=== PATIENT | female | born 1985 | race Two or more races ===

== ENCOUNTER → 2020-09-19 08:52 | Outpatient (BNVA) | payer OTHER, SELFPAY | PROVIDERS: PCP Internal Medicine; Visit Provider Physician Assistant | DX: Z76.89 Persons encountering health services in other specified circumstances (principal) ==

== ENCOUNTER 2020-09-20 14:24 | Outpatient (REF) | payer OTHER, SELFPAY ==
[2020-09-20 17:03] LABS: MANUAL DIFF FLAG NO
[2020-09-20 17:21] LABS: Basophils Percent Auto 0.5 % (0-2); Eosinophils Absolute Auto 0.3 X10*3/uL (0.0-0.4); Eosinophils Percent Auto 5.1 % (0-4); Hematocrit 30.8 % (37-47); Hemoglobin 9.3 g/dl (12.0-16.0); Imm Gran Abs Auto 0.02 X10*3/uL (0.00-0.03); Imm Gran Pct Auto 0.4 % (0.0-0.4); Lymphocytes Absolute Auto 1.9 X10*3/uL (1.2-4.9); Lymphocytes Percent Auto 35.1 % (20-40); Mean Corpuscular HGB Conc 30.2 g/dl (31.0-35.0); Mean Corpuscular Hemoglobin 23.6 pg (27.0-33.0); Mean Corpuscular Volume 78.2 fL (80-98); Mean Platelet Volume 12.1 fL (9.4-12.3); Monocytes Absolute Auto 0.4 X10*3/uL (0.1-1.2); Monocytes Percent Auto 6.7 % (2-11); Neutrophils Absolute Auto 2.9 X10*3/uL (2.0-8.3); Neutrophils Percent Auto 52.2 % (45-73); Platelet Count 386 X10*3/uL (160-400); Red Blood Count 3.94 X10*6/uL (4.20-5.50); Red Cell Distribution Width 14.6 % (11.0-16.0); White Blood Count 5.5 X10*3/uL (4.8-10.8)
[2020-09-20 17:30] LABS: Alanine Aminotransferase 18 U/L (0-31); Albumin Level 4.2 g/dL (3.5-5.0); Alkaline Phosphatase 102 U/L (39-117); Anion Gap 11 (12-20); Aspartate Amino Transferase 24 U/L (5-31); Bilirubin Total 0.3 mg/dL (0.0-1.0); Blood Urea Nitrogen 7 mg/dL (9-16); Calcium 8.8 mg/dL (8.4-10.2); Carbon Dioxide 26 mmol/L (22-29); Chloride 106 mmol/L (96-108); Estimated Glomerular Filt Rate > 60; Glucose Random 118 mg/dL (60-115); Sodium 139 mmol/L (135-145); Total Protein 7.5 g/dL (6.5-8.0)
[2020-09-20 17:50] LABS: Thyroid Stimulating Hormone 0.96 mIU/mL (0.32-4.0)
== END 2020-09-20 14:25 | disposition home or self-care (01) ==
LOC: HO.HMGCLDS 14:24
PROVIDERS: PCP Internal Medicine; Visit Provider Physician Assistant
DX: K59.09 Other constipation (principal); R10.9 Unspecified abdominal pain; R10.11 Right upper quadrant pain
CPT/HCPCS: 36415; 80053; 84443; 85025

== ENCOUNTER 2020-09-21 15:12 | Outpatient (REF) | payer OTHER, SELFPAY | END 2020-09-21 15:13 | disposition home or self-care (01) | LOC: HO.HMGCLNP 15:12 | PROVIDERS: Visit Provider Physician Assistant | DX: K21.9 Gastro-esophageal reflux disease without esophagitis (principal) | CPT/HCPCS: 87338 ==

== ENCOUNTER 2020-09-28 08:37 | Outpatient (REF) | payer OTHER, SELFPAY ==
--- NOTE | 2020-09-28 08:43 | US_ITS ---
EXAMINATION: US ABDOMEN COMPLETE CLINICAL INFORMATION: Unspecified abdominal pain. COMPARISON: CT abdomen and pelvis 03/19/2020. Ultrasound abdomen 02/07/2020. Renal ultrasound 01/28/2020. TECHNIQUE: Real-time imaging of the abdominal viscera. FINDINGS: PANCREAS: Normal. ABDOMINAL AORTA: The proximal, mid, and distal segments are normal in caliber. INFERIOR VENA CAVA: Visualized portions are normal. LIVER: The liver is normal in size. The liver contour is normal. There is increased liver echogenicity seen. No focal hepatic lesion. There is no intrahepatic biliary duct dilatation seen. GALLBLADDER: Surgically absent. COMMON BILE DUCT: Normal in caliber measuring 0.5 cm in diameter. RIGHT KIDNEY: Normal. No hydronephrosis. No renal calculi or focal parenchymal lesions. The kidney measures 11.0 cm in maximum dimension. LEFT KIDNEY: Normal. No hydronephrosis. No renal calculi or focal parenchymal lesions. The kidney measures 11.7 cm in maximum dimension. SPLEEN: The spleen measures 7.3 cm in maximum dimension. FREE FLUID: None. US/US abdomen complete IMPRESSION: 1. Hepatic steatosis without focal lesion. No focal lesion seen. 2. The rest of the abdominal ultrasound is unremarkable.
== END 2020-09-28 08:38 | disposition home or self-care (01) ==
LOC: HO.US 08:37
PROVIDERS: Visit Provider Physician Assistant
DX: R10.9 Unspecified abdominal pain (principal)
CPT/HCPCS: 76700

== ENCOUNTER → 2020-10-09 11:46 | Outpatient (BNVA) | payer OTHER, SELFPAY | PROVIDERS: Visit Provider Physician Assistant | DX: Z76.89 Persons encountering health services in other specified circumstances (principal) ==

== ENCOUNTER → 2020-11-01 08:56 | Outpatient (BNVA) | payer OTHER, SELFPAY | PROVIDERS: PCP Internal Medicine; Visit Provider Physician Assistant | DX: Z76.89 Persons encountering health services in other specified circumstances (principal) ==

== ENCOUNTER 2020-11-07 14:51 | Outpatient (REF) | payer OTHER, SELFPAY ==
[2020-11-07 16:34] LABS: MANUAL DIFF FLAG NO
[2020-11-07 16:39] LABS: Basophils Percent Auto 0.2 % (0-2); Eosinophils Absolute Auto 0.2 X10*3/uL (0.0-0.4); Hematocrit 31.5 % (37-47); Hemoglobin 9.5 g/dl (12.0-16.0); Imm Gran Abs Auto 0.02 X10*3/uL (0.00-0.03); Imm Gran Pct Auto 0.2 % (0.0-0.4); Lymphocytes Absolute Auto 2.2 X10*3/uL (1.2-4.9); Lymphocytes Percent Auto 26.7 % (20-40); Mean Corpuscular HGB Conc 30.2 g/dl (31.0-35.0); Mean Corpuscular Hemoglobin 23.1 pg (27.0-33.0); Mean Corpuscular Volume 76.6 fL (80-98); Mean Platelet Volume 11.2 fL (9.4-12.3); Monocytes Absolute Auto 0.4 X10*3/uL (0.1-1.2); Monocytes Percent Auto 4.4 % (2-11); Neutrophils Absolute Auto 5.3 X10*3/uL (2.0-8.3); Neutrophils Percent Auto 65.5 % (45-73); Platelet Count 459 X10*3/uL (160-400); Red Blood Count 4.11 X10*6/uL (4.20-5.50); Red Cell Distribution Width 15.3 % (11.0-16.0); White Blood Count 8.1 X10*3/uL (4.8-10.8)
[2020-11-07 17:48] LABS: Ferritin 9 ng/mL (10-122)
[2020-11-07 17:54] LABS: Vitamin B12 504 pg/mL (200-900)
[2020-11-09 16:22] LABS: Transglutaminase IgA 1 U/mL
[2020-11-12 00:27] LABS: Endomysial IgA Antibody Negative (Negative)
== END 2020-11-07 14:52 | disposition home or self-care (01) ==
LOC: HO.HMGCLDS 14:51
PROVIDERS: PCP Internal Medicine; Visit Provider Physician Assistant
DX: D64.9 Anemia, unspecified (principal); R19.7 Diarrhea, unspecified
CPT/HCPCS: 36415; 82607; 82728; 82746; 83516; 85025; 86255; 86256

== ENCOUNTER 2020-11-09 14:44 | Outpatient (REF) | payer OTHER, SELFPAY | END 2020-11-09 14:45 | disposition home or self-care (01) | LOC: HO.HMGCLNP 14:44 | PROVIDERS: Visit Provider Physician Assistant | DX: A04.8 Other specified bacterial intestinal infections (principal) | CPT/HCPCS: 87338 ==

== ENCOUNTER → 2020-12-04 10:11 | Outpatient (BNVA) | payer OTHER, SELFPAY | PROVIDERS: PCP Internal Medicine; Referring Provider Internal Medicine; Visit Provider Physician Assistant | DX: Z76.89 Persons encountering health services in other specified circumstances (principal) ==

== ENCOUNTER 2020-12-22 14:36 | Outpatient (REF) | payer OTHER, SELFPAY ==
[2020-12-22 16:47] LABS: MANUAL DIFF FLAG NO
[2020-12-22 16:51] LABS: Basophils Percent Auto 0.6 % (0-2); Eosinophils Absolute Auto 0.4 X10*3/uL (0.0-0.4); Eosinophils Percent Auto 6.4 % (0-4); Hematocrit 33.8 % (37-47); Hemoglobin 10.6 g/dl (12.0-16.0); Imm Gran Abs Auto 0.01 X10*3/uL (0.00-0.03); Imm Gran Pct Auto 0.1 % (0.0-0.4); Lymphocytes Absolute Auto 1.8 X10*3/uL (1.2-4.9); Lymphocytes Percent Auto 27.1 % (20-40); Mean Corpuscular HGB Conc 31.4 g/dl (31.0-35.0); Mean Corpuscular Hemoglobin 25.2 pg (27.0-33.0); Mean Corpuscular Volume 80.3 fL (80-98); Mean Platelet Volume 11.7 fL (9.4-12.3); Monocytes Absolute Auto 0.4 X10*3/uL (0.1-1.2); Monocytes Percent Auto 5.7 % (2-11); Neutrophils Percent Auto 60.1 % (45-73); Platelet Count 360 X10*3/uL (160-400); Red Blood Count 4.21 X10*6/uL (4.20-5.50); Red Cell Distribution Width 17.2 % (11.0-16.0); White Blood Count 6.7 X10*3/uL (4.8-10.8)
[2020-12-22 17:28] LABS: Ferritin 9 ng/mL (10-122)
== END 2020-12-22 14:37 | disposition home or self-care (01) ==
LOC: HO.HMGCLDS 14:36
PROVIDERS: PCP Internal Medicine; Visit Provider Physician Assistant
DX: D64.9 Anemia, unspecified (principal)
CPT/HCPCS: 36415; 82728; 85025

== ENCOUNTER → 2021-01-23 10:30 | Outpatient (BNVA) | payer OTHER, SELFPAY | PROVIDERS: PCP Internal Medicine; Visit Provider Physician Assistant ==

== ENCOUNTER 2021-06-28 11:00 | Outpatient (REF) | payer OTHER, SELFPAY ==
[2021-06-28 13:53] LABS: MANUAL DIFF FLAG NO
[2021-06-28 13:58] LABS: Eosinophils Percent Auto 7.7 % (0-4); Hematocrit 39.1 % (37-47); Hemoglobin 12.5 g/dl (12.0-16.0); Imm Gran Pct Auto 0.2 % (0.0-0.4); Lymphocytes Percent Auto 30.3 % (20-40); Mean Corpuscular Hemoglobin 26.3 pg (27.0-33.0); Mean Corpuscular Volume 82.3 fL (80-98); Mean Platelet Volume 11.8 fL (9.4-12.3); Neutrophils Percent Auto 52.9 % (45-73); Platelet Count 391 X10*3/uL (160-400); Red Blood Count 4.75 X10*6/uL (4.20-5.50); Red Cell Distribution Width 13.2 % (11.0-16.0); White Blood Count 5.8 X10*3/uL (4.8-10.8)
[2021-06-28 13:59] LABS: Basophils Absolute Auto 0.1 X10*3/uL (0.0-0.2); Basophils Percent Auto 0.9 % (0-2); Eosinophils Absolute Auto 0.4 X10*3/uL (0.0-0.4); Imm Gran Abs Auto 0.01 X10*3/uL (0.00-0.03); Lymphocytes Absolute Auto 1.7 X10*3/uL (1.2-4.9); Monocytes Absolute Auto 0.5 X10*3/uL (0.1-1.2); Neutrophils Absolute Auto 3.1 X10*3/uL (2.0-8.3)
[2021-06-28 14:21] LABS: Iron 139 mcg/dL (30-160); Percent Iron Saturation 38 % (15-50); Total Iron Binding Capacity 364 mcg/dL (228-428); Unsaturated Iron Binding 225 ug/dL
[2021-06-28 14:29] LABS: Ferritin 22 ng/mL (10-122)
== END 2021-06-28 11:01 | disposition home or self-care (01) ==
LOC: HO.HMGCLDS 11:00
PROVIDERS: PCP Internal Medicine; Visit Provider Internal Medicine
DX: D50.9 Iron deficiency anemia, unspecified (principal)
CPT/HCPCS: 36415; 82728; 83540; 85025

== ENCOUNTER 2021-07-20 16:46 | Outpatient (REF) | payer OTHER, SELFPAY ==
[2021-07-20 16:51] LABS: Glucose Urine UA NEG (NEG); Leukocyte Esterase Urine 1+ (NEG); Nitrite Urine NEG (NEG); PH 5.5 (5.0-8.0); UACC Culture Trigger YES; Urine Blood 1+ (NEG); Urine Ketones NEG (NEG); Urine Protein NEG (NEG-TRACE)
[2021-07-20 17:06] LABS: Appearance Urine CLEAR; Color Urine STRAW
[2021-07-20 17:22] LABS: RBC Urine 0-2 /HPF (0); Squamous Epithelial Cell Urine TRACE /LPF; WBC Urine 0-2 /HPF (0-4)
== END 2021-07-20 16:47 | disposition home or self-care (01) ==
LOC: HO.LNP 16:46
PROVIDERS: Visit Provider Internal Medicine
DX: R10.9 Unspecified abdominal pain (principal)
CPT/HCPCS: 81001; 81003; 87086

== ENCOUNTER 2021-07-24 14:27 | Outpatient (REF) | payer OTHER, SELFPAY ==
--- NOTE | ~2021-07-24 | US_ITS ---
EXAMINATION: US RETROPERITONEAL LIMITED (RENAL ONLY) CLINICAL INFORMATION: Bilateral flank pain. COMPARISON: Abdominal ultrasound dated 09/28/2020. TECHNIQUE: Multiple 2-D grayscale and color Doppler sonographic images of the kidneys were obtained bilaterally. FINDINGS: RIGHT KIDNEY: 11.2 x 4.2 x 5.7 cm (SAG x AP x TRV). An interpolar anechoic cyst measures 0.5 cm. Color Doppler showed no abnormal vascular flow. No nephrolithiasis or hydronephrosis. LEFT KIDNEY: 11.3 x 5.3 x 5.8 cm (SAG x AP x TRV). Unremarkable. US/US renal BI IMPRESSION: Tiny interpolar right renal cyst demonstrating benign features without other significant abnormality.
== END 2021-07-24 14:28 | disposition home or self-care (01) ==
LOC: HO.HMGCX 14:27
PROVIDERS: PCP Internal Medicine; Visit Provider Internal Medicine
DX: R10.9 Unspecified abdominal pain (principal)
CPT/HCPCS: 76775

== ENCOUNTER 2021-08-22 09:15 | Emergency (ER) | payer OTHER, SELFPAY ==
--- NOTE | ~2021-08-22 | XR_ITS ---
EXAMINATION: BILATERAL ANKLE X-RAY CLINICAL INFORMATION: Atraumatic pain and swelling COMPARISON: None TECHNIQUE: 3 views of each ankle FINDINGS: Bone alignment is normal. No fracture or dislocation is seen. The ankle mortise is normal. There are small bilateral calcaneal spurs. Soft tissues are otherwise normal. XR/XR ankle RT min 3V IMPRESSION: Small bilateral calcaneal spurs otherwise unremarkable exam.
--- NOTE | ~2021-08-22 | CT_ITS ---
EXAMINATION: CT ABDOMEN AND PELVIS WITHOUT CONTRAST CLINICAL INFORMATION: Back and abdominal pain COMPARISON: Previous CT of the abdomen and pelvis March 2020 and pelvic ultrasound May 2020 TECHNIQUE: Multidetector volumetric imaging was performed from the superior aspect of the liver through the pubic symphysis. Sagittal and coronal reformatted images were obtained on the technologist's workstation. This CT examination was performed using dose optimization techniques as appropriate, variously including the following: *Automated exposure control *Adjustment of mA and/or kV according to patient size (this includes techniques or standardized protocols for targeted exams where dose is matched to indication/reason for exam; i.e. extremities or head) *Use of iterative reconstruction technique DLP: 431 mGy-cm FINDINGS: LUNG BASES: The visualized lung bases are unremarkable. LIVER, GALLBLADDER, AND BILIARY TREE: The liver is normal in size, shape, and attenuation. No focal hepatic lesion or biliary ductal dilatation is present. The gallbladder has been removed. PANCREAS: Unremarkable. SPLEEN: Unremarkable. ADRENAL GLANDS: Unremarkable. KIDNEYS AND URETERS: The kidneys are normal in size, shape, and attenuation. No hydronephrosis, hydroureter, or calculi seen. No perinephric stranding. BLADDER: Unremarkable. GASTROINTESTINAL TRACT: The small and large bowel are unremarkable. The appendix is unremarkable. ABDOMINAL WALL: There is a small umbilical hernia containing fat. LYMPH NODES: Normal. VASCULAR: Unremarkable. PELVIC VISCERA: There is a small calcification seen in the anterior uterus that is stable. The uterus and adnexa are otherwise unremarkable. OSSEOUS STRUCTURES: Unremarkable. CT/CT abdomen pelvis wo con IMPRESSION: Unremarkable exam.
--- NOTE | ~2021-08-22 | XR_ITS ---
EXAMINATION: BILATERAL ANKLE X-RAY CLINICAL INFORMATION: Atraumatic pain and swelling COMPARISON: None TECHNIQUE: 3 views of each ankle FINDINGS: Bone alignment is normal. No fracture or dislocation is seen. The ankle mortise is normal. There are small bilateral calcaneal spurs. Soft tissues are otherwise normal. XR/XR ankle LT min 3V IMPRESSION: Small bilateral calcaneal spurs otherwise unremarkable exam.
[2021-08-22 09:31] VITALS: BP 113/69; PULSE 80; RESP 16; TEMP 36.6; O2SAT 96; BMI 26.2
[2021-08-22 10:16] LABS: Appearance Urine CLEAR; Color Urine STRAW; Glucose Urine UA NEG (NEG); Leukocyte Esterase Urine NEG (NEG); Nitrite Urine NEG (NEG); Specific Gravity - Urine <= 1.005 (1.005-1.025); UACC Culture Trigger NO; Urine Blood TRACE (NEG); Urine Ketones NEG (NEG); Urine Protein NEG (NEG-TRACE)
[2021-08-22 10:19] LABS: UPreg QC Valid YES; Urine Pregnancy NEGATIVE (NEGATIVE)
[2021-08-22 10:38] LABS: Mucus Urine TRACE /LPF; RBC Urine 0-2 /HPF (0); Squamous Epithelial Cell Urine 1+ /LPF
--- NOTE | 2021-08-22 11:10 | ED_ITS ---
HPI - Back Pain/Injury General Chief Complaint: General Medical Stated Complaint: back pain Time Seen by Provider: 08/22/21 09:39 Source: patient Mode of arrival: ambulatory Limitations: language barrier (Mauritanian-speaking) History of Present Illness HPI Narrative: 36-year-old female with a past medical history of iron deficiency anemia, H pylori, acid reflux, constipation, steatosis, menorrhalgia presenting to the ED with complaints of back pain that radiates to her lower extremities up into her ankles and to her abdomen diffusely intermittent for the past 2-3 months. She reports that she has been also having some burning with urination. She also noticed that she has some swelling to her ankles. She denies any fevers, chills, dizziness, headaches, chest pain, shortness of breath, dyspnea on exertion, orthopnea, palpitations, paresthesias, black or bloody stools, hematuria, urinary or bowel incontinence, focal weakness, rashes, IV drug use or any other symptoms complaints or concerns at this time. MD elicited complaint: back pain Onset (ago): month(s) Timing: intermittent and progressively worsening Severity: moderate Quality: aching Location: lumbar spine Radiation: abdomen, left upper leg, right upper leg, left leg below the knee and right leg below the knee Exacerbating factors: none Relieving factors: none Context: unknown Associated symptoms: dysuria Treatments prior to arrival: other (She has tried pfty-grh-qdyptiw medication no symptomatic relief) Work related injury: No Related Data Previous Rx's Medication Instructions Recorded docusate sodium 100 mg capsule 200 mg PO BEDTIME #60 cap 06/28/21 (Colace) famotidine 40 mg tablet 40 mg PO DAILY #30 tab 06/28/21 ciprofloxacin HCl 250 mg tablet 250 mg PO Q12H 3 Days #6 tab 07/20/21 tramadol 50 mg tablet 50 mg PO BID PRN #14 tab 08/22/21 Allergies Allergy/AdvReac Type Severity Reaction Status Date / Time No Known Allergies Allergy Verified 07/20/21 16:54 [No Known Allergies*] N.K.D.A. Allergy Unknown Unknown Uncoded 06/28/21 11:29 Review of Systems Review of Systems: Constitutional : No trauma, No Weight loss, No Fever, No Chills, ENT/Mouth : No Hearing loss, No Ear Pain, No Nasal Congestion, No Sinus Pain, No Hoarseness, No sore throat, No Rhinorrhea, No Swallowing Difficulty Cardiovascular : No Chest Pain, No SOB Respiratory : No Cough, No Dyspnea Gastrointestinal : + Abdominal pain, No Nausea, No Vomiting, No Diarrhea, No Hematochezia, No Melena Genitourinary : No Dysuria, No Urinary Frequency, No Hematuria, No Urinary or Bowel Incontinence/retention Musculoskeletal : + Back pain, + b/l ankle joint pain/swelling, No neck pain, No joint stiffness Skin : No Skin Lesions, No rash or signs of infection Neuro : No Weakness, No radiation, No Numbness, No Paresthesias, No headache, no loss of bowel or bladder incontinence, no saddle anesthesia, Focal weakness, No radiation Denies history of IV drug usage. Yes all other systems are reviewed and are negative [facility] Past Medical History Attestation statement: The following information was validated with the patient. Medical History Abdominal pain Acid reflux Anemia Bilateral flank pain Constipation History of Helicobacter pylori infection Iron deficiency anemia Steatosis Surgical History History of section History of hysteroscopy History of laparoscopic cholecystectomy Family History Family History Father Medical history non-contributory Mother Thyroid disorder Maternal Grandmother Gallstone Maternal Aunt Gall stones Brother No problems noted. Brother No problems noted. Sister No problems noted. Sister No problems noted. Daughter No problems noted. Son No problems noted. Social History Social History Household Members: Spouse Housing: House Alcohol intake: never Patient Tobacco Use Status: Never used Tobacco Tobacco use type: Cigarette e-Cigarette/Vaping Use: Never Used Second Hand Smoke Exposure: Yes Advance Directives: No Advance Directives Information Provided: No Patient : No service: No Current occupational status: unemployed Physical Exam Vital Signs: Vital Signs: Last Vital Signs Temp 97.9 F 08/22/21 09:31 Pulse 80 08/22/21 09:31 Resp 16 08/22/21 09:31 BP 113/69 08/22/21 09:31 Pulse Ox 96 08/22/21 09:31 Body Mass Index 26.2 vital signs have been reviewed as normal and appeared to be correct. Blood pressure normal. Heart rate normal. Respiration rate normal. Temperature normal. Oxygen saturation normal. Appearance: Alert. Oriented X3. No acute distress. Head: Normal external exam. Normocephalic. Atraumatic. Eyes: PERRLA. EOMI. Conjunctiva and sclera normal. Eyelids normal. ENT: Pharynx normal. Uvula midline. Moist mucous membranes. Neck: Normal inspection. Neck supple. FROM. No adenopathy. Thyroid Normal. No meningeal signs. No neck mass noted. CVS: Normal heart rate and rhythm. Heart sound normal. No murmurs noted. Pulses normal throughout. Respiratory: No respiratory distress. Painless inspiration. Breath sounds normal. No wheezes/rales/rhonchi noted. Chest nontender. No accessory muscle usage noted or decreased air movement noted. Abdomen: Soft and nontender. Bowel sounds normal in all 4 quadrants. No distention noted. No organomegaly noted. No visible injury noted. Back: No CVA tenderness. Full range of motion noted. No obvious deformities, or edema. Mild para-spinal muscular tenderness from lumbar region to coccyx. Full ROM in back and lower extremities. 5/5 strength hip extension/flexion, abduction, adduction. Mild Lumbar pain with hip flexion against resistance. Straight leg raise test negative on right; Straight leg raise test negative on left; Reflexes normal ankle and knee bilaterally; EHL motor strength normal bilaterally. No rashes/lesion/induration/fluctuance or signs infection noted. Skin: Skin warm and dry. Normal skin color. Normal skin turgor. No rashes/lesions/lacerations noted. Extremities: Patient mild tenderness of patient to bilateral lateral aspects of ankles. With mild soft tissue swelling. No obvious ligamentous injury noted to bilateral ankles. Achilles tendon is intact. No signs of infection. No calf tenderness is noted bilaterally. No lower extremity edema. Otherwise all other Extremities exhibit normal range of motion and nontender. Neuro: Oriented X 3. No motor deficit. No sensory deficit. Reflexes normal. Patient has a normal steady gait. Course Course Course Narrative: 11:15am - Pt c likely muscular pain, but could be herniated disc. Neuro exam shows no deficits. Not c/w AAA/epidural abscess/dissection.No high risk Hx (Incont, fever, immunosupp, recent surgery/LP, coag, signif trauma, wt loss, puls mass, hx/o Ca, TB, or IVDU) to warrant MRI. Although due to patient reporting she has dysuria and the pain radiates to her abdomen and her lower extremities will obtain a CT scan abdomen and pelvis without IV contrast to evaluate for any other acute processes and will obtain a UA and UHCG to evaluate for UTI. Then re-evaluate. Reevaluation(s) Reevaluation #1: - CT scan abdomen and pelvis without IV contrast negative for any acute processes. - UA within normal limits no evidence of UTI. U hCG negative for . - bilateral ankle x-rays revealed small bilateral calcaneal spurs otherwise no other acute processes are noted. - therefore patient most likely musculoskeletal pain. Will DC home with symptomatic treatment she reports she already has muscle relaxants at home and is not providing any symptomatic relief therefore will DC home with something stronger along with instructions to follow up with primary care provider for physical therapy referral and to return if any new or worsening symptoms. Patient understands agrees with this plan. Time: 12:20 [facility] - Back Pain/Injury Medical Records Attestation: I reviewed the patient's medical records. Lab Data Attestation: I reviewed the patient's lab results. Labs: Lab Results 08/22/21 08/22/21 Range/Units 09:53 09:53 Urine Color STRAW Urine Appearance CLEAR Urine pH 7.0 (5.0-8.0) Ur Specific [place] <= 1.005 (1.005-1.025) Urine Protein NEG (NEG-TRACE) MG/DL Urine Glucose (UA) NEG (NEG) MG/DL Urine Ketones NEG (NEG) MG/DL Urine Blood TRACE (NEG) Urine Nitrite NEG (NEG) Ur Leukocyte Esterase NEG (NEG) Urine RBC 0-2 (0) /HPF Urine WBC 1-4 (0-4) /HPF Ur Squamous Epith Cells 1+ /LPF Urine Bacteria NONE /LPF Urine Mucus TRACE /LPF Urine Test NEGATIVE (NEGATIVE) Imaging Data Bilateral ankle x-rays: Attestation: I personally reviewed and interpreted this imaging study as follows: Radiologist's impression: FINDINGS: Bone alignment is normal. No fracture or dislocation is seen. The ankle mortise is normal. There are small bilateral calcaneal spurs. Soft tissues are otherwise normal.? XR/XR ankle LT min 3V IMPRESSION: Small bilateral calcaneal spurs otherwise unremarkable exam.? CT scan abdomen pelvis without IV contrast: Attestation: I personally reviewed and interpreted this imaging study as follows: Radiologist's impression: FINDINGS: LUNG BASES: The visualized lung bases are unremarkable.? LIVER, GALLBLADDER, AND BILIARY TREE: The liver is normal in size, shape, and attenuation. No focal hepatic lesion or biliary ductal dilatation is present. The gallbladder has been removed. PANCREAS: Unremarkable.? SPLEEN: Unremarkable.? ADRENAL GLANDS: Unremarkable.? KIDNEYS AND URETERS: The kidneys are normal in size, shape, and attenuation. No hydronephrosis, hydroureter, or calculi seen. No perinephric stranding. ? BLADDER: Unremarkable.? GASTROINTESTINAL TRACT: The small and large bowel are unremarkable. The appendix is unremarkable.? ABDOMINAL WALL: There is a small umbilical hernia containing fat. LYMPH NODES: Normal. VASCULAR: Unremarkable. PELVIC VISCERA: There is a small calcification seen in the anterior uterus that is stable. The uterus and adnexa are otherwise unremarkable. OSSEOUS STRUCTURES: Unremarkable.? CT/CT abdomen pelvis wo con IMPRESSION: Unremarkable exam. Discharge Plan Discharge Clinical Impression: Musculoskeletal back pain, Hernia, umbilical, Bilateral calcaneal spurs, Ankle strain Patient Disposition: Home, Self-Care Instructions: Umbilical Hernia (ED), Back Pain (ED), Heel Spur (ED), Ankle Strain (ED) Prescriptions: New tramadol 50 mg tablet 50 mg PO BID PRN (Reason: pain) Qty: 14 RF: 0 No Action docusate sodium [Colace] 100 mg capsule 200 mg PO BEDTIME Qty: 60 RF: 5 famotidine 40 mg tablet 40 mg PO DAILY Qty: 30 RF: 1 ciprofloxacin HCl 250 mg tablet 250 mg PO Q12H 3 Days Qty: 6 RF: 0 Referrals: rPecious Garcia MD [Primary Care Provider] - 2 days Stand Alone Forms: Work/School Release Print Language: Mauritanian
== END 2021-08-22 12:32 | disposition home or self-care (01) ==
PROVIDERS: Physician Assistant Medical; Emergency Provider Emergency Medicine; PCP Internal Medicine
DX: S96.912A Strain of unspecified muscle and tendon at ankle and foot level, left foot, initial encounter (principal); K42.9 Umbilical hernia without obstruction or gangrene; M77.32 Calcaneal spur, left foot; M77.31 Calcaneal spur, right foot; R30.0 Dysuria; M25.572 Pain in left ankle and joints of left foot; M25.571 Pain in right ankle and joints of right foot; R10.9 Unspecified abdominal pain; X58.XXXA Exposure to other specified factors, initial encounter; Y93.9 Activity, unspecified; Y92.9 Unspecified place or not applicable; Y99.9 Unspecified external cause status; Z79.899 Other long term (current) drug therapy; F17.210 Nicotine dependence, cigarettes, uncomplicated; Z71.6 Tobacco abuse counseling
CPT/HCPCS: 73610; 74176; 81001; 81003; 81025; 99284

== ENCOUNTER → 2021-11-22 07:09 | Outpatient (BNVA) | payer OTHER, SELFPAY | PROVIDERS: PCP Internal Medicine; Referring Provider Internal Medicine; Visit Provider Nurse Practitioner ==

== ENCOUNTER 2021-12-13 08:25 | Outpatient (REF) | payer OTHER, SELFPAY ==
[2021-12-13 09:20] LABS: Binax Internal Control QC Valid; Binax Now Covid-19 Ag Positive (Negative)
== END 2021-12-13 08:26 | disposition home or self-care (01) ==
LOC: HO.LAB 08:25
PROVIDERS: Visit Provider Internal Medicine
DX: Z20.822 Contact with and (suspected) exposure to COVID-19 (principal)
CPT/HCPCS: C9803

== ENCOUNTER → 2021-12-20 11:57 | Outpatient (BNVA) | payer OTHER, SELFPAY | PROVIDERS: PCP Internal Medicine; Referring Provider Internal Medicine; Visit Provider Nurse Practitioner ==

== ENCOUNTER 2022-01-04 11:19 | Emergency (ER) | payer OTHER, SELFPAY ==
[2022-01-04 11:22] VITALS: BP 129/78; PULSE 78; RESP 18; TEMP 36.8; O2SAT 96; BMI 27.2
[2022-01-04 11:50] LABS: MANUAL DIFF FLAG NO
[2022-01-04 11:54] LABS: Basophils Percent Auto 0.2 % (0-2); Eosinophils Absolute Auto 0.2 X10*3/uL (0.0-0.4); Eosinophils Percent Auto 2.4 % (0-4); Hematocrit 37.5 % (37.0-47.0); Hemoglobin 12.6 g/dl (12.0-16.0); Imm Gran Abs Auto 0.03 X10*3/uL (0.00-0.03); Imm Gran Pct Auto 0.3 % (0.0-0.4); Lymphocytes Absolute Auto 2.8 X10*3/uL (1.2-4.9); Lymphocytes Percent Auto 31.9 % (20-40); Mean Corpuscular HGB Conc 33.6 g/dl (31.0-35.0); Mean Corpuscular Hemoglobin 27.8 pg (27.0-33.0); Mean Corpuscular Volume 82.8 fL (80.0-98.0); Mean Platelet Volume 9.5 fL (9.4-12.3); Monocytes Absolute Auto 0.7 X10*3/uL (0.1-1.2); Monocytes Percent Auto 8.2 % (2-11); Neutrophils Absolute Auto 4.9 x10*3/uL (2.0-8.3); Platelet Count 318 X10*3/uL (160-400); Red Blood Count 4.53 X10*6/uL (4.20-5.50); Red Cell Distribution Width 11.9 % (11.0-16.0); White Blood Count 8.7 X10*3/uL (4.8-10.8)
[2022-01-04 11:54] LABS: Appearance Urine CLEAR; Glucose Urine UA NEG (NEG); Leukocyte Esterase Urine NEG (NEG); Nitrite Urine NEG (NEG); Specific Gravity - Urine <= 1.005 (1.005-1.025); UACC Culture Trigger NO; Urine Blood TRACE (NEG); Urine Ketones NEG (NEG); Urine Protein NEG (NEG-TRACE)
[2022-01-04 11:55] LABS: Color Urine COLORLESS
[2022-01-04 12:04] LABS: RBC Urine 0-2 /HPF (0); Squamous Epithelial Cell Urine TRACE /LPF; WBC Urine 0 /HPF (0-4)
[2022-01-04 12:05] LABS: COVID-19 Test Negative (Negative); IDNOW Serial# 9DD0AD1C
[2022-01-04 12:15] LABS: Alanine Aminotransferase 24 U/L (0-31); Albumin Level 4.3 g/dL (3.5-5.0); Alkaline Phosphatase 92 U/L (39-117); Anion Gap 8 (12-20); Aspartate Amino Transferase 21 U/L (5-31); Bilirubin Total 0.5 mg/dL (0.0-1.0); Blood Urea Nitrogen 8 mg/dL (9-16); Calcium 9.5 mg/dL (8.4-10.2); Carbon Dioxide 28 mmol/L (22-29); Chloride 105 mmol/L (96-108); Creatinine Clr Calc Pharmacy 90.5; Estimated Glomerular Filt Rate > 60; Glucose Random 97 mg/dL (60-115); Potassium 3.6 mmol/L (3.3-5.1); Sodium 137 mmol/L (135-145); Total Protein 7.8 g/dL (6.5-8.0)
--- NOTE | 2022-01-04 12:29 | ED_ITS ---
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 Mode of arrival: ambulatory Limitations: no limitations History of Present Illness MD complaint: BP at home 140/100 mild headache Onset (ago): day(s) (3) Location: head Severity: mild Quality: dull Pain Consistency: intermittent Relieving factors: none Exacerbating factors: none Associated symptoms: other (used cuff has not been used in 2 years - BP 140/100 called PCP told to come to ED, felt anxious, became worried she has HTN) Treatments prior to arrival: none Related Data Previous Rx's Medication Instructions Recorded bisacodyl 5 mg tablet,delayed 10 mg PO BEDTIME 30 Days #60 tab 11/22/21 release (Dulcolax (bisacodyl)) omeprazole 40 mg capsule,delayed 40 mg PO DAILY 30 Days #30 cap 11/22/21 release sucralfate 100 mg/mL oral 10 ml PO BID 30 Days #600 ml 11/22/21 suspension Allergies Allergy/AdvReac Type Severity Reaction Status Date / Time No Known Allergies Allergy Verified 12/20/21 12:16 [No Known Allergies*] N.K.D.A. Allergy Unknown Unknown Uncoded 06/28/21 11:29 Review of Systems Verdana 4l Review of Systems: Verdana 4d Verdana 4d Constitutional : No Fever, No Chills, No Fatigue ENT/Mouth : No sore throat, No Rhinorrhea Eyes: No Eye Pain, No Swelling, No Redness Cardiovascular : No Chest Pain, No SOB Respiratory : No Cough, No Sputum Gastrointestinal : No Nausea, NoNo Vomiting Musculoskeletal : No joint pain, No Myalgias, No Joint Swelling Skin : No Skin Lesions, No rash Neuro : No Weakness, No Numbness, No Dizziness, positive Headache PMFSH Past Medical History Attestation statement: The following information was validated with the patient. Medical History Abdominal pain Acid reflux Anemia Bilateral flank pain Constipation History of Helicobacter pylori infection Iron deficiency anemia Lumbago without sciatica Steatosis Surgical History History of section History of hysteroscopy History of laparoscopic cholecystectomy Family History Family History Father Medical history non-contributory Mother Thyroid disorder Maternal Grandmother Gallstone Maternal Aunt Gall stones Brother No problems noted. Brother No problems noted. Sister No problems noted. Sister No problems noted. Daughter No problems noted. Son No problems noted. Social History Social History Household Members: Spouse Housing: House Alcohol intake: never Patient Tobacco Use Status: Never used Tobacco Tobacco use type: Cigarette e-Cigarette/Vaping Use: Never Used Second Hand Smoke Exposure: Yes Advance Directives: No Advance Directives Information Provided: No Patient : No service: No Current occupational status: unemployed Physical Exam Verdana 4l Vital Signs: Verdana 4d Verdana 4d Vital Signs: Verdana 4d Verdana 4Bd Last Vital Signs Verdana 4d Fire Prevention Inspector New 4d Fire Prevention Inspector New 4d Temp 98.2 F 01/04/22 11:22 Fire Prevention Inspector New 4d Pulse 78 01/04/22 11:22 Fire Prevention Inspector New 4d Resp 18 01/04/22 11:22 BP 129/78 01/04/22 11:22 Pulse Ox 96 01/04/22 11:22 BMI result Body Mass Index 27.2 Appearance: Alert. Oriented X3. No acute distress. Eyes: Pupils equal, round and reactive to light. ENT: Pharynx normal. Neck: Normal inspection. Neck supple. CVS: Normal heart rate and rhythm. Pulses normal. Respiratory: No respiratory distress. Breath sounds normal. Abdomen: Soft and non-tender. Skin: Skin warm and dry. Normal skin color. Normal skin turgor. Extremities: No lower extremity edema. No calf ttp Neuro: Oriented X 3. No motor deficit. No sensory deficit. Medical Decision Making MDM Narrative Medical decision making narrative: 36 yo female recovering from COVID middle december intermittent mild headaches became nervous because she checked her BP home machine - hasn't used it in 2 year 140/100s - her PCP sent her to the ED. She has no end organ dysfunction, normal BP here, feels much better - stable for DC, suspect BP machine malfunct ion Lab Data Result diagrams: 01/04/22 11:47 01/04/22 11:47 Labs: Lab Results 01/04/22 01/04/22 01/04/22 Range/Units 11:44 11:45 11:47 WBC 8.7 (4.8-10.8) X10*3/uL RBC 4.53 (4.20-5.50) X10*6/uL Hgb 12.6 (12.0-16.0) g/dl Hct 37.5 (37.0-47.0) % MCV 82.8 (80.0-98.0) fL MCH 27.8 (27.0-33.0) pg MCHC 33.6 (31.0-35.0) g/dl RDW 11.9 (11.0-16.0) % Plt Count 318 (160-400) X10*3/uL MPV 9.5 (9.4-12.3) fL Immature Gran % (Auto) 0.3 (0.0-0.4) % Neut % (Auto) 57.0 (45-73) % Lymph % (Auto) 31.9 (20-40) % [place] % (Auto) 8.2 (2-11) % Eos % (Auto) 2.4 (0-4) % Baso % (Auto) 0.2 (0-2) % Lymph # (Auto) 2.8 (1.2-4.9) X10*3/uL [place] # (Auto) 0.7 (0.1-1.2) X10*3/uL Eos # (Auto) 0.2 (0.0-0.4) X10*3/uL Baso # (Auto) 0.0 (0.0-0.2) X10*3/uL Abs Immat Gran (auto) 0.03 (0.00-0.03) X10*3/uL Absolute Neuts (auto) 4.9 (2.0-8.3) x10*3/uL Absolute Nucleated RBC 0.000 (0.0-0.012) X10*3/uL Nucleated RBC % (auto) 0.0 (0.0-0.2) /100WBC Sodium (135-145) mmol/L Potassium (3.3-5.1) mmol/L Chloride (96-108) mmol/L Carbon Dioxide (22-29) mmol/L Anion Gap (12-20) BUN (9-16) mg/dL Creatinine (0.5-1.4) mg/dL Estim Creat Clear Calc Estimated GFR Random Glucose (60-115) mg/dL Calcium (8.4-10.2) mg/dL Total Bilirubin (0.0-1.0) mg/dL AST (5-31) U/L ALT (0-31) U/L Alkaline Phosphatase (39-117) U/L Total Protein (6.5-8.0) g/dL Albumin (3.5-5.0) g/dL Urine Color COLORLESS Urine Appearance CLEAR Urine pH 6.0 (5.0-8.0) Ur Specific [place] <= 1.005 (1.005-1.025) Urine Protein NEG (NEG-TRACE) MG/DL Urine Glucose (UA) NEG (NEG) MG/DL Urine Ketones NEG (NEG) MG/DL Urine Blood TRACE (NEG) Urine Nitrite NEG (NEG) Ur Leukocyte Esterase NEG (NEG) Urine RBC 0-2 (0) /HPF Urine WBC 0 (0-4) /HPF Ur Squamous Epith Cells TRACE /LPF Urine Bacteria NONE /LPF COVID-19 ([facility]) Negative (Negative) COVID-19 Clin Com See Note 01/04/22 Range/Units 11:47 WBC (4.8-10.8) X10*3/uL RBC (4.20-5.50) X10*6/uL Hgb (12.0-16.0) g/dl Hct (37.0-47.0) % MCV (80.0-98.0) fL MCH (27.0-33.0) pg MCHC (31.0-35.0) g/dl RDW (11.0-16.0) % Plt Count (160-400) X10*3/uL MPV (9.4-12.3) fL Immature Gran % (Auto) (0.0-0.4) % Neut % (Auto) (45-73) % Lymph % (Auto) (20-40) % Sherman % (Auto) (2-11) % Eos % (Auto) (0-4) % Baso % (Auto) (0-2) % Lymph # (Auto) (1.2-4.9) X10*3/uL [place] # (Auto) (0.1-1.2) X10*3/uL Eos # (Auto) (0.0-0.4) X10*3/uL Baso # (Auto) (0.0-0.2) X10*3/uL Abs Immat Gran (auto) (0.00-0.03) X10*3/uL Absolute Neuts (auto) (2.0-8.3) x10*3/uL Absolute Nucleated RBC (0.0-0.012) X10*3/uL Nucleated RBC % (auto) (0.0-0.2) /100WBC Sodium 137 (135-145) mmol/L Potassium 3.6 (3.3-5.1) mmol/L Chloride 105 (96-108) mmol/L Carbon Dioxide 28 (22-29) mmol/L Anion Gap 8 L (12-20) BUN 8 L (9-16) mg/dL Creatinine 0.67 (0.5-1.4) mg/dL Estim Creat Clear Calc 90.5 Estimated GFR > 60 Random Glucose 97 (60-115) mg/dL Calcium 9.5 D (8.4-10.2) mg/dL Total Bilirubin 0.5 (0.0-1.0) mg/dL AST 21 (5-31) U/L ALT 24 (0-31) U/L Alkaline Phosphatase 92 (39-117) U/L Total Protein 7.8 (6.5-8.0) g/dL Albumin 4.3 (3.5-5.0) g/dL Urine Color Urine Appearance Urine pH (5.0-8.0) Ur Specific [place] (1.005-1.025) Urine Protein (NEG-TRACE) MG/DL Urine Glucose (UA) (NEG) MG/DL Urine Ketones (NEG) MG/DL Urine Blood (NEG) Urine Nitrite (NEG) Ur Leukocyte Esterase (NEG) Urine RBC (0) /HPF Urine WBC (0-4) /HPF Ur Squamous Epith Cells /LPF Urine Bacteria /LPF COVID-19 ([facility]) (Negative) COVID-19 Clin Com Discharge Plan Discharge Clinical Impression: Acute tension headache Qualifiers: Intractability: not intractable Qualified Code(s): G44.209 - Tension-type headache, unspecified, not intractable Patient Disposition: Home, Self-Care Instructions: Tension Headache (ED) Additional Instructions: return to ED for any worsening symptoms or concerns NEGATIVE COVID BP 120/80S X 3 Prescriptions: No Action bisacodyl [Dulcolax (bisacodyl)] 5 mg tablet,delayed release (DR/EC) 10 mg PO BEDTIME 30 Days Qty: 60 6RF omeprazole 40 mg capsule,delayed release(DR/EC) 40 mg PO DAILY 30 Days Qty: 30 6RF sucralfate 100 mg/mL suspension 10 ml PO BID 30 Days Qty: 600 6RF Referrals: Precious Garcia MD [Primary Care Provider] - 3 days (IF NOT BETTER) Print Language: Tongan
== END 2022-01-04 12:45 | disposition home or self-care (01) ==
PROVIDERS: Emergency Provider Emergency Medicine; PCP Internal Medicine
DX: G44.209 Tension-type headache, unspecified, not intractable (principal); Z20.822 Contact with and (suspected) exposure to COVID-19
CPT/HCPCS: 80053; 81001; 85025; 87635; 99283; 99284

== ENCOUNTER → 2022-03-08 12:21 | Day surgery (SDC) | payer OTHER, SELFPAY ==
--- NOTE | 2022-03-07 11:12 | HO.ANESPROP2 ---
HPI - Anesthesia Eval Consult details Narrative: CX'd DOS d/t Fever and productive cough 36yo F for Upper Endoscopy with Balloon Dilitation PMFSH Active Problems Active Problems: All Active Problems (Updated 01/05/22 @ 00:01 by Michel Anderson) Lumbago without sciatica (Acute) Bilateral flank pain (Acute) Iron deficiency anemia (Acute) Epigastric abdominal pain (Acute) Menorrhagia (Acute) Steatosis (Acute) Anemia (Acute) H. pylori infection (Acute) Constipation (Acute) Acid reflux (Acute) Abdominal pain (Acute) Past Medical History Medical History Abdominal pain Acid reflux Anemia Bilateral flank pain Constipation History of Helicobacter pylori infection Iron deficiency anemia Lumbago without sciatica Steatosis Family History Family History Father Medical history non-contributory Mother Thyroid disorder Maternal Grandmother Gallstone Maternal Aunt Gall stones Brother No problems noted. Brother No problems noted. Sister No problems noted. Sister No problems noted. Daughter No problems noted. Son No problems noted. Surgical History Surgical History History of section History of hysteroscopy History of laparoscopic cholecystectomy Social History Social History Household Members: Spouse Housing: House Alcohol intake: never Patient Tobacco Use Status: Never used Tobacco Tobacco use type: Cigarette e-Cigarette/Vaping Use: Never Used Second Hand Smoke Exposure: Yes Use of substances other than those prescribed or required for medical reasons: No Are you DNR?: No Advance Directives: No Advance Directives Information Provided: Yes service: No Current occupational status: unemployed Meds Allergies Allergy/AdvReac Type Severity Reaction Status Date / Time No Known Allergies Allergy Verified 01/29/22 12:20 [No Known Allergies*] N.K.D.A. Allergy Unknown Unknown Uncoded 01/29/22 12:20 Home Medications Medication Instructions Recorded Confirmed Last Taken Type No Known Home Meds 01/29/22 Unknown History Exam Exam Date and Time: March 07, 2022 1112 Pertinent Lab Results Pertinent Lab Results: Laboratory Tests 01/04/22 01/04/22 11:47 11:47 WBC 8.7 Hgb 12.6 Hct 37.5 Plt Count 318 Sodium 137 Potassium 3.6 Chloride 105 Carbon Dioxide 28 BUN 8 L Creatinine 0.67 Assessment and Plan Assessment Anesthesia Assessment: Chart Reviewed
[2022-03-08 13:09] VITALS: BP 112/66; PULSE 112; RESP 16; TEMP 37.8; O2SAT 96; BMI 28.3
--- NOTE | 2022-03-08 13:23 | PC.NURSE ---
pt with fever of 100.1 orally. feels warm. has had a cough, productive at times with yellow sputum. cancelled by anesthei
[2022-03-08 13:25] LABS: UPreg QC Valid YES; Urine Pregnancy NEGATIVE (NEGATIVE)
== END ==
PROVIDERS: Nurse Practitioner; PCP Internal Medicine; Visit Provider Internal Medicine Gastroenterology
DX: R10.13 Epigastric pain (principal); Z53.09 Procedure and treatment not carried out because of other contraindication; R50.9 Fever, unspecified
CPT/HCPCS: 81025

== ENCOUNTER 2022-04-18 11:28 | Outpatient (REF) | payer OTHER, SELFPAY ==
--- NOTE | ~2022-04-18 | XR_ITS ---
EXAMINATION: XR LUMBOSACRAL SPINE CLINICAL INFORMATION: Low back pain. COMPARISON: None TECHNIQUE: Three views of the lumbosacral spine. FINDINGS: The vertebral bodies and posterior elements are normal. The disc spaces are preserved and the vertebral alignment is normal. Small calcifications overlying the pelvis have the appearance of phleboliths. The paraspinal soft tissues are normal. Surgical clips overlie the right upper quadrant. XR/XR lumbar spine 2-3V IMPRESSION: Unremarkable lumbar spine.
== END 2022-04-18 11:29 | disposition home or self-care (01) ==
LOC: HO.HMGCX 11:28
PROVIDERS: PCP Internal Medicine; Visit Provider Internal Medicine
DX: M54.50 Low back pain, unspecified (principal)
CPT/HCPCS: 72100

== ENCOUNTER 2022-06-10 08:38 | Day surgery (SDC) | payer OTHER, SELFPAY ==
--- NOTE | 2022-06-07 10:40 | HO.ANESPROP2 ---
Documented by User: Juana To NP 06/07/22 10:40 HPI - Anesthesia Eval Consult details Narrative: 37yo F for Upper Endoscopy PMFSH Active Problems Active Problems: All Active Problems (Updated 04/18/22 @ 11:22 by Seven Lorenzo MD) Lumbar pain (Acute) Lumbago without sciatica (Acute) Bilateral flank pain (Acute) Iron deficiency anemia (Acute) Epigastric abdominal pain (Acute) Menorrhagia (Acute) Steatosis (Acute) Anemia (Acute) H. pylori infection (Acute) Constipation (Acute) Acid reflux (Acute) Abdominal pain (Acute) Past Medical History Medical History Abdominal pain Acid reflux Anemia Bilateral flank pain Constipation History of Helicobacter pylori infection Iron deficiency anemia Lumbago without sciatica Steatosis Family History Family History Father Medical history non-contributory Mother Thyroid disorder Maternal Grandmother Gallstone Maternal Aunt Gall stones Brother No problems noted. Brother No problems noted. Sister No problems noted. Sister No problems noted. Daughter No problems noted. Son No problems noted. Surgical History Surgical History History of section History of hysteroscopy History of laparoscopic cholecystectomy Social History Social History Household Members: Spouse Housing: House Alcohol intake: never Patient Tobacco Use Status: Never used Tobacco Tobacco use type: Cigarette e-Cigarette/Vaping Use: Never Used Second Hand Smoke Exposure: Yes Advance Directives: No Advance Directives Information Provided: Yes service: No Current occupational status: unemployed Meds Allergies Allergy/AdvReac Type Severity Reaction Status Date / Time No Known Allergies Allergy Verified 04/18/22 11:09 [No Known Allergies*] Exam Exam Date and Time: June 07, 2022 1040 Pertinent Lab Results Pertinent Lab Results: Laboratory Tests 01/04/22 01/04/22 11:47 11:47 WBC 8.7 Hgb 12.6 Hct 37.5 Plt Count 318 Sodium 137 Potassium 3.6 Chloride 105 Carbon Dioxide 28 BUN 8 L Creatinine 0.67 Assessment and Plan Assessment Anesthesia Assessment: Chart Reviewed Documented by User: Jadyn Jordan MD 06/10/22 09:02 [facility] Past Medical History Medical History Abdominal pain Acid reflux Anemia Bilateral flank pain Constipation History of Helicobacter pylori infection Iron deficiency anemia Lumbago without sciatica Steatosis Family History Family History Father Medical history non-contributory Mother Thyroid disorder Maternal Grandmother Gallstone Maternal Aunt Gall stones Brother No problems noted. Brother No problems noted. Sister No problems noted. Sister No problems noted. Daughter No problems noted. Son No problems noted. Family history of problems with anesthesia: No Surgical History Surgical History History of section History of hysteroscopy History of laparoscopic cholecystectomy History of Problems with Anesthesia: No Social History Social History Household Members: Spouse Housing: House Alcohol intake: never Patient Tobacco Use Status: Never used Tobacco Tobacco use type: Cigarette e-Cigarette/Vaping Use: Never Used Second Hand Smoke Exposure: Yes Advance Directives: No Advance Directives Information Provided: Yes service: No Current occupational status: unemployed Meds Allergies Allergy/AdvReac Type Severity Reaction Status Date / Time No Known Allergies Allergy Verified 04/18/22 11:09 [No Known Allergies*] Exam Airway Mallampati Class: II TM Dist: >3cm Neck ROM: Full Heart: rrr Lungs: cta Assessment and Plan Assessment Anesthesia Assessment: Anesthesia Plan Discussed Final Anesthetic Review Family History of Problems with Anesthesia: No History of Problems with Anesthesia: No NPO: Yes ASA Class: II Final Preanesthetic Review: No Changes in Pt Med Stat, Meds/Allgs Chart Reviewed and Consent Obtained/Reviewed Patient Risk: Intermediate Procedure Risk: Intermediate Anesthetic Plan Anesthetic Plan: MAC: Disposition: Standard PACU
[2022-06-10 08:56] VITALS: BP 99/51; PULSE 78; RESP 16; TEMP 36.2; O2SAT 95; BMI 27.2
[2022-06-10 09:07] LABS: UPreg QC Valid YES; Urine Pregnancy NEGATIVE (NEGATIVE)
[2022-06-10] MEDS: Lactated Ringers 1,000 ML 100 ML IVCONT (09:09)
--- NOTE | 2022-06-10 09:09 | MHC.SHP ---
Pre-Procedural Eval Section A Date of Service: 06/10/22 The patient is an INPATIENT: No The History & Physical has been completed within 30 days and I have reviewed it.: No Section B Chief Complaint: Epigastric pain Details of Present Illness: epigastric pain Relevant Family History (Specify if Yes): No Relevant Social History: None Present Medications: see Short Stay Collaborative assessment Medical History: Significant History (Abdominal pain Acid reflux Anemia Bilateral flank pain Constipation History of Helicobacter pylori infection Iron deficiency anemia Lumbago without sciatica Steatosis) History of Previous Operations: Relevant previous surgery/procedure and date(s) (History of section History of hysteroscopy History of laparoscopic cholecystectomy) Allergies: Allergies Allergy/AdvReac Type Severity Reaction Status Date / Time No Known Allergies Allergy Verified 04/18/22 11:09 [No Known Allergies*] Review of Systems Sugical H&P ROS: Negative: Constitution, Cardiovascular and Respiratory and Yes, Specify: Gastrointestinal (abd pain) Exam Surgical H&P Exam: Normal: Heart, Normal: Lungs, Normal: Extremities and Normal: Abdomen Plan Diagnosis/Plan: Unchanged I have reviewed the history and physical and performed a pertinent physical examination on my patient. No changes have occurred unless specified.
--- NOTE | 2022-06-10 09:11 | P.BOP_ITS ---
Brief Operative Note Date of Service: 06/10/22 Pre-op diagnosis: Epigastric pain Post-op diagnosis: other (Esophagitis, hiatal hernia, gastritis) Procedure: FLEXIBLE TRANSORAL UPPER GASTROINTESTINAL ENDOSCOPY WITH BIOPSIES Consent: Indications for the procedure and potential complications of bleeding, perforation, reaction to medications and missed diagnosis were discussed with the patient and informed consent was obtained. Instrument: Olympus GIF H 190 mid size upper endoscope Monitoring: Vital signs and clinical assessment, continuous EKG monitoring, Pulse oximetry, Carbon Dioxide monitoring and blood pressure monitoring were done throughout the procedure. Procedure: The patient was placed in the left lateral decubitis position and pre-procedure medications were administered and a bite block was placed. The endoscope was inserted into the mouth and advanced under direct vision to the third part of duodenum. A careful inspection was made as the upper endoscope was withdrawn including a retroflexed examination of the proximal stomach; Findings and interventions are described below. Findings: Larynx: Normal Esophagus: GE junction at 35 cms, small hiatal hernia 35 to 37 cms. Focal esophagitis at GE junction with two 0.5 mm chronic appearing erosions. No Husain's. Stomach: Mild gastric erythema. Biopsies were obtained. Grade 2 flap valve on retroflexed examination of the cardia. Duodenum: Normal bulb and descending duodenum. Biopsies were obtained from 3rd part of duodenum to check for celiac sprue. Intervention: Biopsies as noted above Impression and Post Procedure Diagnosis: Endoscopy Findings: ESOPHAGUS: GE junction at 35 cms, small hiatal hernia 35 to 37 cms. Focal esophagitis at GE junction with two 0.5 mm chronic appearing erosions STOMACH: Mild gastric erythema. Biopsies were obtained. DUODENUM: Normal - biopsied to check for celiac sprue Plan: Await pathology results. Pt was advised to start pantoprazole 20 mg daily - prescription was sent to her preferred pharmacy (since she complains of MEJIA with Omeprazole use) Patient has an appointment on 06/26/22 in the GI Clinic with Christiana Arevalo NP. Above findings were reviewed with the patient and GERD and Hiatal Hernia handouts were given in the discharge area Surgeon: Pranav Conley MD Anesthesia: MAC (Dr Arauz) Was an Telemetry Nurse used for this Procedure?: Yes Telemetry Nurse: Susana Robles Estimated blood loss (mL): 0 Pathology: other (A. small bowel bxs, R/O celiac B. gastric antrum bxs, R/O H. pylori) Condition: stable Disposition: PACU
[2022-06-10 09:28] VITALS: BP 102/53; PULSE 87; RESP 20; TEMP 36.6; O2SAT 95
[2022-06-10 09:43] VITALS: BP 100/61; PULSE 79; RESP 16; O2SAT 95
[2022-06-10 09:58] VITALS: BP 101/65; PULSE 71; RESP 16; TEMP 36.6; O2SAT 98
--- NOTE | 2022-06-10 17:18 | W.PM.OPN ---
Operative Note Operative Note Date of Service: 06/10/22 Narrative: Pre-op diagnosis: Epigastric pain Post-op diagnosis:?other (Esophagitis, hiatal hernia, gastritis) Procedure: FLEXIBLE TRANSORAL UPPER GASTROINTESTINAL ENDOSCOPY WITH BIOPSIES Consent:?Indications for the procedure and potential complications of bleeding, perforation, reaction to medications and missed diagnosis were discussed with the patient and informed consent was obtained. Instrument:?Olympus GIF H 190 mid size upper endoscope Monitoring: Vital signs and clinical assessment, continuous EKG monitoring, Pulse oximetry, Carbon Dioxide monitoring and blood pressure monitoring were done throughout the procedure. Procedure:?The patient was placed in the left lateral decubitis position and pre-procedure medications were administered and a bite block was placed. The endoscope was inserted into the mouth and advanced under direct vision to the third part of duodenum. A careful inspection was made as the upper endoscope was withdrawn including a retroflexed examination of the proximal stomach; Findings and interventions are described below. Findings: Larynx:? Normal Esophagus: GE junction at 35 cms, small hiatal hernia 35 to 37 cms. Focal esophagitis at GE junction with two 0.5 mm chronic appearing erosions. No Husain's. Stomach: Mild gastric erythema. Biopsies were obtained. Grade 2 flap valve on retroflexed examination of the cardia. Duodenum: Normal bulb and descending duodenum. Biopsies were obtained from 3rd part of duodenum to check for celiac sprue. Intervention: Biopsies as noted above Impression and Post Procedure Diagnosis: Endoscopy Findings: ESOPHAGUS: GE junction at 35 cms, small hiatal hernia 35 to 37 cms. Focal esophagitis at GE junction with two 0.5 mm chronic appearing erosions STOMACH: Mild gastric erythema. Biopsies were obtained. DUODENUM: Normal - biopsied to check for celiac sprue Plan: Await pathology results. Pt was advised to start pantoprazole 20 mg daily - prescription was sent to her preferred pharmacy (since she complains of MEJIA with Omeprazole use) Patient has an appointment on 06/26/22 in the GI Clinic with? Christiana Arevalo NP. Above findings were reviewed with the patient and GERD and Hiatal Hernia handouts were given in the discharge area Surgeon: Pranav Conley MD Anesthesia:?MAC (Dr Arauz) Was an Correctional Probation Officer used for this Procedure?:?Yes Correctional Probation Officer:?Susana Robles Estimated blood loss (mL):?0 Pathology:?other (A. small bowel bxs, R/O celiac? B. gastric antrum bxs, R/O H. pylori) Condition:?stable Disposition:?PACU
== END 2022-06-10 10:27 | disposition home or self-care (01) ==
PROVIDERS: Nurse Practitioner; PCP Internal Medicine; Visit Provider Internal Medicine Gastroenterology
PROC: 0DJ08ZZ Inspection of Upper Intestinal Tract, Via Natural or Artificial Opening Endoscopic (ICD-10-PCS; CPT 43235; principal; 2022-06-10 13:30)
DX: K29.50 Unspecified chronic gastritis without bleeding (principal); K20.80 Other esophagitis without bleeding; K44.9 Diaphragmatic hernia without obstruction or gangrene; K59.00 Constipation, unspecified; D50.9 Iron deficiency anemia, unspecified; K21.9 Gastro-esophageal reflux disease without esophagitis; Z86.19 Personal history of other infectious and parasitic diseases; Z79.899 Other long term (current) drug therapy; Z90.49 Acquired absence of other specified parts of digestive tract; Z86.16 Personal history of COVID-19
CPT/HCPCS: 43239; 81025; 88305; 88342

== ENCOUNTER 2022-08-08 15:06 | Outpatient (REF) | payer OTHER, SELFPAY | END 2022-08-08 15:07 | disposition home or self-care (01) | LOC: HO.LNP 15:06 | PROVIDERS: Visit Provider Internal Medicine | DX: R35.0 Frequency of micturition (principal); R82.90 Unspecified abnormal findings in urine; R10.2 Pelvic and perineal pain; M54.50 Low back pain, unspecified | CPT/HCPCS: 87086 ==

== ENCOUNTER 2023-02-24 10:47 | Outpatient (REF) | payer OTHER, SELFPAY ==
[2023-02-24 13:59] LABS: Hematocrit 40.8 % (37.0-47.0); Hemoglobin 13.6 g/dl (12.0-16.0); Mean Corpuscular HGB Conc 33.3 g/dl (31.0-35.0); Mean Corpuscular Hemoglobin 27.8 pg (27.0-33.0); Mean Corpuscular Volume 83.3 fL (80.0-98.0); Mean Platelet Volume 11.2 fL (9.4-12.3); Platelet Count 350 X10*3/uL (160-400); Red Cell Distribution Width 12.1 % (11.0-16.0); White Blood Count 7.9 X10*3/uL (4.8-10.8)
[2023-02-24 14:16] LABS: Alanine Aminotransferase 55 U/L (0-31); Albumin Level 4.5 g/dL (3.5-5.0); Alkaline Phosphatase 121 U/L (39-117); Anion Gap 11 (12-20); Aspartate Amino Transferase 38 U/L (5-31); Bilirubin Direct 0.2 mg/dL (0.0-0.5); Bilirubin Total 0.6 mg/dL (0.0-1.0); Blood Urea Nitrogen 6 mg/dL (9-16); Calcium 9.4 mg/dL (8.4-10.2); Carbon Dioxide 27 mmol/L (22-29); Chloride 105 mmol/L (96-108); Cholesterol 191 mg/dL; Estimated Glomerular Filt Rate > 60; Glucose Random 115 mg/dL (60-115); HDL Cholesterol 67 mg/dL; LDL Cholesterol Calculated 87 mg/dl; Potassium 4.2 mmol/L (3.3-5.1); Sodium 139 mmol/L (135-145); Triglycerides 189 mg/dL
[2023-02-24 14:34] LABS: Thyroid Stimulating Hormone 0.76 uIU/mL (0.32-4.0)
[2023-02-24 14:40] LABS: Erythrocyte Sedimentation Rate 10 MM/HR (0-20)
== END 2023-02-24 10:48 | disposition home or self-care (01) ==
LOC: HO.HMGCLDS 10:47
PROVIDERS: PCP Internal Medicine; Visit Provider Internal Medicine
DX: R53.83 Other fatigue (principal); I10 Essential (primary) hypertension
CPT/HCPCS: 36415; 80048; 80061; 80076; 84443; 85027; 85652

== ENCOUNTER 2023-03-05 10:27 | Outpatient (AMB) | payer OTHER, SELFPAY ==
--- NOTE | 2023-03-05 10:46 | A.OFFPC_ITS ---
<Statement entered by Precious Garcia MD - 01/02/26 00:15> This note has been administratively?closed. Vital Signs 03/05/23 10:47 Height 4 ft 11 in Weight 141 lb 2 oz BMI 28.5 BP 96/58 L Blood Pressure Location Lt brachial Position Sitting Pulse 77 Pulse Source Pulse Oximeter Pulse Oximetry (%) 98 Oxygen Delivery Method Room Air Intake Visit Reasons: elevated liver enzymes Intake Note: Pt is here today to discuss elevated liver enzymes Allergies No Known Allergies (No Known Allergies*) Allergy (Verified 12/30/25 09:56) Tobacco use date assessed: 03/05/23 [facility] Medical History Elevated antinuclear antibody (NELLIE) level Hypertriglyceridemia Polyarthralgia History of Helicobacter pylori infection Iron deficiency anemia Acid reflux Surgical History History of hysteroscopy History of laparoscopic cholecystectomy History of section Family History Father Medical history non-contributory Mother Thyroid disorder Maternal Grandmother Gallstone Maternal Aunt Gall stones Brother No problems noted. Brother No problems noted. Sister No problems noted. Sister No problems noted. Daughter No problems noted. Son No problems noted. Social History (Updated 12/30/25 @ 10:00 by Margarette Dugan CMA) Household Members: Spouse and Children Housing: Apartment Alcohol intake: never Patient Tobacco Use Status: Never used Tobacco Tobacco use type: Cigarette e-Cigarette/Vaping Use: Never Used Second Hand Smoke Exposure: Yes Use of substances other than those prescribed or required for medical reasons: No Patient : No service: No Current occupational status: unemployed Sexually active: Yes Sexual orientation: Straight/Heterosexual Gender identity: Female Cognitive needs: No Hearing needs: No Vision needs: Yes Questionnaire PHQ-9 Over the last 2 weeks, how often have you been bothered by any of the following problems? 1. Little interest or pleasure in doing things: not at all 2. Feeling down, depressed, or hopeless: not at all 3. Trouble falling or staying asleep, or sleeping too much: not at all 4. Feeling tired or having little energy: not at all 5. Poor appetite or overeating: not at all 6. Feeling bad about yourself - or that you are a failure or have let yourself or your family down: not at all 7. Trouble concentrating on things, such as reading the newspaper or watching television: not at all 8. Moving or speaking so slowly that other people could have noticed. Or the opposite - being so fidgety or restless that you have been moving around a lot more than usual: not at all 9. Thoughts that you would be better off or of hurting yourself in some way: not at all Total score: 0 Depression Screening Interpretation: Negative [id number] - PHQ-9 Billing: Yes Source: Developed by Drs. John Camarena, Larisa Humphries, Giuseppe Almazan and colleagues, with an educational sunshine from [employer]. Thrive Questionnaire Declines Thrive assessment: No Date Thrive assessed: 03/05/23 I am a: Patient What is your living situation today?: I have a steady place to live Within the past 12 months, did the food you bought not last and you didn't have the money to get more?: Often true Within the past 12 months, did you worry whether your food would run out before you got money to buy more?: Often true Do you have trouble paying for medicines?: No Do you have trouble getting transportation to medical appointments?: No Do you have trouble paying your heating and electricity bill?: No Do you have trouble taking care of your child, family member or friend?: No Do you have trouble with day-to-day activities such as bathing, preparing meals, shopping, managing finances, etc.?: No Are you currently unemployed and looking for a job?: No AUDIT C Alcohol Use Questionnaire (AUDIT-C) 1. How often do you have a drink containing alcohol?: Never Total Score: 0 DANDY-7 AMB Questionnaire DANDY-7 Date DANDY - 7 assessed: 03/05/23 Feeling nervous, anxious, or on edge: 1 = Several days Not being able to stop or control worryin = Not at all Worrying too much about different things: 1 = Several days Trouble relaxin = Not at all Being so restless that it is hard to sit still: 0 = Not at all Becoming easily annoyed or irritable: 0 = Not at all Feeling afraid as if something awful might happen: 0 = Not at all Total DANDY-7 score (0-4 normal; 5-9 mild; 10-14 moderate; 15-21 severe): 2 Source: Developed by Drs. John Camarena, Larisa Humphries, Giuseppe Almazan and colleagues, with an educational sunshine from [employer]. DANDY-7 Assessment Billing DANDY-7 Assessment Tool: DANDY-7 Assessment 19942 Physical exam (Primary Care) Vital Signs: Last Vital Signs Pulse 77 03/05/23 10:47 BP 96/58 L 03/05/23 10:47 Pulse Ox 98 03/05/23 10:47 Oxygen Delivery Method Room Air 03/05/23 10:47 BMI result Body Mass Index 28.5 Tobacco/Smoking Status: Tobacco use Status Tobacco use date assessed 03/05/23 03/05/23 10:51 Patient Tobacco Use Status Never used Tobacco 03/05/23 10:51 Tobacco use type Cigarette 03/05/23 10:51 e-Cigarette/Vaping Use Never Used 03/05/23 10:51 PHQ-9: PHQ-9 Score PHQ-9: Total score 0 03/05/23 11:27 Depression Screening Interpretation: Negative Thrive Assessment: Date of Thrive Assessment Date Thrive assessed 03/05/23 03/05/23 10:51 Results Reviewed Results Reviewed: Name: Linsey Clark Age/Sex: 37/F : 1985 Unit#: [id number] Attend Dr: Dustin Neumann MD Re02/24/23 Status: DEP REF Location: [facility] Disch: SPEC : [id number] GORDO: 02/24/23-1058 STATUS: COMP REQ : [id number] RECD: 02/24/23-[address]: Dustin Neumann MD COMP: 02/24/23-1433 ENTERED: 02/24/23-[address]: Precious Garcia MD ORDERED: Liver Panel, BMP, Lipid Panel, TSH Test Result Flag Reference Site Sodium 139 135-145 mmol/L Potassium 4.2 3.3-5.1 mmol/L CL 105 96-108 mmol/L CO2 27 22-29 mmol/L Gap 11 L 12-20 BUN 6 L 9-16 mg/dL Creat 0.70 0.5-1.4 mg/dL EGFR > 60 NOTE: For -[place] individuals, multiply the result by 1.210. Chronic Kidney Disease: Estimated GFR < 60 mL/min/1.73m2 Severe Kidney Disease: Estimated GFR < 15 mL/min/1.73m2 Glucose, Random 115 60-115 mg/dL CA 9.4 8.4-10.2 mg/dL Total Bili 0.6 0.0-1.0 mg/dL Direct Bili 0.2 0.0-0.5 mg/dL AST (GOT) 38 H 5-31 U/L ALT (GPT) 55 H 0-31 U/L Protein, Total 8.0 6.5-8.0 g/dL Alb 4.5 3.5-5.0 g/dL Triglyceride 189 mg/dL Desirable Triglyceride: less than 150 mg/dL Borderline High Triglyceride 150-199 mg/dL High Triglyceride: 200-499 mg/dL Very High Triglyceride: greater than or equal to 5OO mg/dL Chol 191 mg/dL Desirable Cholesterol: less than 200 mg/dL Borderline High Cholesterol: 200-239 mg/dL High Cholesterol: greater than 239 mg/dL LDL Calculated 87 mg/dl Desirable LDL: less than 100 mg/dL Near Optimal/Above Optimal LDL: 110-129 mg/dL Borderline High LDL: 130-159 mg/dL High LDL: 160-189 mg/dL Very High LDL: greater than or equal to 190 mg/dL HDL 67 mg/dL Desirable HDL: greater than 40 mg/dL Note: This HDL assay may give artificially low results in patients with liver disease. Alk Phos 121 H 39-117 U/L TSH 3rd Gen. 0.76 0.32-4.0 uIU/mL TSH 3rd Generation ([facility]) Coding Level of Care Code Admin Sign Off/No Billing Diagnoses Polyarthralgia M25.50 Lower back pain M54.50 Steatosis E78.89 Hypertriglyceridemia E78.1 Additional Codes DANDY-7 Assessment Billing - DANDY-7 Assessment Tool: DANDY-7 Assessment 42594 ([id number])
[2023-03-05 10:47] VITALS: BP 96/58; PULSE 77; O2SAT 98; BMI 28.5
== END 2023-03-05 12:08 | disposition home or self-care (01) ==
LOC: HO.HMGC 10:27
PROVIDERS: PCP Internal Medicine; Visit Provider Internal Medicine
DX: M25.50 Pain in unspecified joint (principal); M54.50 Low back pain, unspecified; E78.89 Other lipoprotein metabolism disorders; E78.1 Pure hyperglyceridemia
CPT/HCPCS: 99499

== ENCOUNTER 2023-03-05 11:28 | Outpatient (REF) | payer OTHER, SELFPAY ==
[2023-03-05 14:49] LABS: Erythrocyte Sedimentation Rate 13 MM/HR (0-20)
[2023-03-05 15:22] LABS: Rheumatoid Factor < 13.0 IU/mL (<15.0)
[2023-03-07 12:39] LABS: CRP High Sensitivity 1.4 mg/L
[2023-03-12 14:58] LABS: Anti Nuclear Antibody Screen POSITIVE (NEGATIVE)
== END 2023-03-05 11:29 | disposition home or self-care (01) ==
LOC: HO.HMGCLDS 11:28
PROVIDERS: PCP Internal Medicine; Visit Provider Internal Medicine
DX: M25.50 Pain in unspecified joint (principal)
CPT/HCPCS: 36415; 85652; 86038; 86039; 86141; 86431

== ENCOUNTER → 2023-03-06 08:56 | Outpatient (BNVA) | payer OTHER, SELFPAY | PROVIDERS: PCP Internal Medicine; Referring Provider Internal Medicine; Visit Provider Nurse Practitioner | DX: Z13.89 Encounter for screening for other disorder (principal) ==

== ENCOUNTER 2023-05-06 12:29 | Outpatient (AMB) | payer OTHER, SELFPAY ==
--- NOTE | 2023-05-06 12:38 | A.OFFPC_ITS ---
<Statement entered by Precious Garcia MD - 04/06/25 15:16> This note has been administratively?closed. Vital Signs 05/06/23 12:41 Height 4 ft 11 in Weight 135 lb BMI 27.3 BP 108/70 Blood Pressure Location Rt brachial Position Sitting Pulse 77 Pulse Source Pulse Oximeter Pulse Oximetry (%) 96 Oxygen Delivery Method Room Air Intake Visit Reasons: Annual PE Intake Note: Patient here for Physical exam Allergies No Known Allergies [No Known Allergies*] Allergy (Verified 05/06/23 12:43) Tobacco use date assessed: 03/05/23 [facility] Medical History (Updated 05/06/23 @ 13:30 by Precious Garcia MD) Acid reflux Bilateral flank pain History of Helicobacter pylori infection Hypertriglyceridemia Iron deficiency anemia Lumbago Polyarthralgia Positive NELLIE (antinuclear antibody) Steatosis Surgical History History of section History of hysteroscopy History of laparoscopic cholecystectomy Family History Father Medical history non-contributory Mother Thyroid disorder Maternal Grandmother Gallstone Maternal Aunt Gall stones Brother No problems noted. Brother No problems noted. Sister No problems noted. Sister No problems noted. Daughter No problems noted. Son No problems noted. Social History Household Members: Spouse Housing: House Alcohol intake: never Patient Tobacco Use Status: Never used Tobacco Tobacco use type: Cigarette e-Cigarette/Vaping Use: Never Used Second Hand Smoke Exposure: Yes service: No Current occupational status: unemployed Cognitive needs: No Hearing needs: No Vision needs: Yes Questionnaire Thrive Questionnaire Date Thrive assessed: 03/05/23 AUDIT C Alcohol Use Questionnaire (AUDIT-C) 1. How often do you have a drink containing alcohol?: Monthly or less 2. How many drinks containing alcohol do you have on a typical day when you are drinking?: 1 or 2 3. How often do you have six or more drinks on one occasion?: Never Total Score: 1 Score Reviewed/Action Taken: No DANDY-7 AMB Questionnaire DANDY-7 Date DANDY - 7 assessed: 03/05/23 Source: Developed by Drs. John Camarena, Larisa Humphries, Giuseppe Almazan and colleagues, with an educational sunshine from [email or web address]. Physical exam (Primary Care) Vital Signs: Last Vital Signs Pulse 77 05/06/23 12:41 BP 108/70 05/06/23 12:41 Pulse Ox 96 05/06/23 12:41 Oxygen Delivery Method Room Air 05/06/23 12:41 BMI result Body Mass Index 27.3 Tobacco/Smoking Status: Tobacco use Status Tobacco use date assessed 03/05/23 05/06/23 12:42 Patient Tobacco Use Status Never used Tobacco 05/06/23 12:42 Tobacco use type Cigarette 05/06/23 12:42 e-Cigarette/Vaping Use Never Used 05/06/23 12:42 Thrive Assessment: Date of Thrive Assessment Date Thrive assessed 03/05/23 05/06/23 12:42 Assessment and Plan Assessment & Plan (1) Positive NELLIE (antinuclear antibody): Code(s): R76.8 - Other specified abnormal immunological findings in serum (2) Lumbago: Code(s): M54.50 - Low back pain, unspecified (3) Annual visit for general adult medical examination with abnormal findings: Code(s): Z00.01 - Encounter for general adult medical examination with abnormal findings Coding Level of Care Code Est Pt Prev Care 18-39y(74537) Diagnoses Positive NELLIE (antinuclear antibody) R76.8 Lumbago M54.50 Annual visit for general adult medical examination with abnormal findings Z00.01
[2023-05-06 12:41] VITALS: BP 108/70; PULSE 77; O2SAT 96; BMI 27.3
== END 2023-05-06 14:06 | disposition home or self-care (01) ==
LOC: HO.HMGC 12:29
PROVIDERS: PCP Internal Medicine; Visit Provider Internal Medicine
DX: R76.8 Other specified abnormal immunological findings in serum (principal); M54.50 Low back pain, unspecified; Z00.01 Encounter for general adult medical examination with abnormal findings
CPT/HCPCS: 99499

== ENCOUNTER 2023-06-30 09:47 | Outpatient (REF) | payer OTHER, SELFPAY ==
--- NOTE | ~2023-06-30 | XR_ITS ---
EXAMINATION: XR ELBOW, RIGHT CLINICAL INFORMATION: Pain COMPARISON: None available. TECHNIQUE: AP, lateral, and oblique views of the right elbow. FINDINGS: No acute visible fracture or dislocation. Joint spaces and alignment are maintained. No large elbow joint effusion. Soft tissues are unremarkable. XR/XR elbow RT min 3V IMPRESSION: No acute visible fracture or dislocation.
== END 2023-06-30 09:48 | disposition home or self-care (01) ==
LOC: HO.XRAY 09:47
PROVIDERS: PCP Internal Medicine; Visit Provider Internal Medicine Rheumatology
DX: M25.521 Pain in right elbow (principal); M25.50 Pain in unspecified joint; R76.8 Other specified abnormal immunological findings in serum; K21.9 Gastro-esophageal reflux disease without esophagitis; M54.50 Low back pain, unspecified
CPT/HCPCS: 73080

== ENCOUNTER 2023-06-30 09:47 | Outpatient (AMB) | payer OTHER, SELFPAY ==
[2023-06-30 09:58] VITALS: BP 112/64; PULSE 90; TEMP 36.2; O2SAT 96; BMI 27.9
--- NOTE | 2023-06-30 09:58 | A.OFFVIS_ITS ---
Intake Vital Signs 06/30/23 09:58 Height 4 ft 11 in Weight 138 lb 3.677 oz BMI 27.9 BP 112/64 Blood Pressure Location Lt brachial Position Sitting Pulse 90 Pulse Source Pulse Oximeter Temp 97.2 F Temp Source Skin Pulse Oximetry (%) 96 Intake Visit Reasons: Joint Pain Intake Note: * New pt presents today for joint pain consult. * C/o pain in multiple joints and lower back * States she was given meloxicam in the past and stopped using because it caused GI upset. 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 The visit is facilitated through the use of the [employer] translating service. For the past 2 or 3 years she has been bothered by low back pain. This is typically worse at night and when she first gets up in the mornings. It does seem to improved towards the day. It does not seem to radiate much be on the posterior buttock area. She has no history of injury to the back. She has taken occasional ibuprofen that seems to help somewhat but she is not prone to taking medications regularly. There has also been pain over the right elbow. This seems to come on with more physical activity. She notes some tightness and pain in the left jaw. This occurs uncomfortable when chewing. She says she does grind her teeth at night and a dentist provided her with a mouth guard which is been somewhat helpful. She notes some pain at the left 2nd PIP but no swelling has occurred. [facility] Medical History (Updated 06/30/23 @ 21:28 by Jeff Navarro MD) Acid reflux Bilateral flank pain History of Helicobacter pylori infection Hypertriglyceridemia Iron deficiency anemia Lumbago Polyarthralgia Positive NELLIE (antinuclear antibody) Steatosis Surgical History History of section History of hysteroscopy History of laparoscopic cholecystectomy Family History Father Medical history non-contributory Mother Thyroid disorder Maternal Grandmother Gallstone Maternal Aunt Gall stones Brother No problems noted. Brother No problems noted. Sister No problems noted. Sister No problems noted. Daughter No problems noted. Son No problems noted. Social History (Updated 06/30/23 @ 10:02 by UMA Newell) Household Members: Spouse Housing: House Alcohol intake: current Alcohol intake frequency: holidays/special occasions only Patient Tobacco Use Status: Never used Tobacco Tobacco use type: Cigarette e-Cigarette/Vaping Use: Never Used Second Hand Smoke Exposure: Yes service: No Current occupational status: unemployed Cognitive needs: No Hearing needs: No Vision needs: Yes Review of Systems Const Details: Low energy and fatigue at times. Some fluctuation in the weight but nothing really significant or persistent. Negative for appetite change, fever, chills, malaise Eyes Details: Dry itchy eyes at times. She does use an antihistamine eyedrop with some help. She gets occasional frontal and top of the head headaches. Negative for vision change and dizziness ENT Details: Some oral dryness, occasionally this makes it difficult to swallow solid food. Negative for hearing change, tinnitus, oral ulcer, nose bleeds. Card Details: Occasional palpitations, somewhat more frequently occurring in recent years. She has seen a straight line press setter. Negative chest pain, edema and syncope Resp Details: Negative for SOB, cough and wheezing GI Details: Occasional constipation. They are less frequent but still happen at times. Negative indigestion/heartburn, nausea, abdominal pain, bowel changes, diarrhea and bloody stool. Details: Two pregnancies, no miscarriages. Negative for dysuria, hematuria, nocturia, decreased force/flow and genital discharge Skin/Breast Details: Some itchiness around the eyelids. This tends to come and go. Negative for itching, rash, hives, Raynaud's symptoms, sun sensitivity, and skin cancer Neuro Details: Negative for epilepsy, palsy, stroke, changes in speech, tingling and weakness Psych Details: Feels anxious at times, never had therapy or medication for that. Negative for, depression and stress Endo Details: Negative for polyuria and polydypsia Milton/Lymph Details: Negative for excessive bruising or bleeding. Physical Exam Vital Signs: Last Vital Signs Temp 97.2 F 06/30/23 09:58 Pulse 90 06/30/23 09:58 BP 112/64 06/30/23 09:58 Pulse Ox 96 06/30/23 09:58 BMI result Body Mass Index 27.9 APPEARANCE: Patient in no acute distress EYES no redness, pupils equal and reactive to light, eyelids normal EARS: External ear normal, canal clear and tympanic membrane normal. NOSE/SINUS: Airflow through both nares, no nasal discharge, no bleeding THROAT: Oral mucosa moist, no ulcerations NECK: No thyromegaly or masses, no adenopathy, trachea midline. HEART: Regulrar rhythm, S1-S2 heard, no murmurs, rubs or gallops. LUNG: Clear to percussion and auscultation ABD: Normal bowel sounds, no organomegaly, masses or tenderness. EXTREMITIES: No edema, no calf tenderness, normal peripheral pulses. No objective evidence of Raynaud's phenomenon NEURO: Oriented and alert x3. No focal weakness. Reflexes symmetric. Gait normal. SKIN: No inflammatory or neoplastic lesions. Normal color and turgor JOINT EXAM:.?? Cervical Spine:.? Full range of motion without pain; no tenderness. Thoracic Spine:.? No scoliosis.? No tenderness on palpation. Lumbar Spine:.? Alignment normal.? Full range of motion with slight lumbar discomfort with flexion at 75 degrees. No pain with hyperextension. No tenderness. Chest Wall:.? No tenderness, swelling, increased warmth or erythema. Hands:.? Left: Normal pain-free range of motion. There is some slight tenderness at the 2nd PIP but no swelling is appreciated. No flexor tendon, tenderness triggering or swelling. No joint swelling or tenderness. No thenar atrophy or sensory loss. Right: Normal pain-free range of motion without tenderness, swelling, increased warmth or erythema. No flexor tendon tenderness or triggering. No thenar atrophy or sensory loss. Wrists:.? Normal pain-free range of motion without tenderness, swelling, increased warmth or erythema. Elbows:. Right: Mild lateral epicondylar tenderness but pain-free range of motion. There is no tenderness or swelling over the joint space. Left: Normal pain-free range of motion without tenderness, swelling, increased warmth or erythema. Shoulders:.?? Full range of motion without pain. No tenderness, weakness, swelling, increased warmth or erythema. Hips:.? Full range of motion without pain. Hip bursa:.? No tenderness. Knees:.?? Normal pain-free range of motion without tenderness, swelling, increased warmth or erythema.? There is no effusion or crepitation Ankles:.? Normal pain-free range of motion without tenderness, swelling, increased warmth or erythema. Feet:.? Normal pain-free range of motion without tenderness, swelling, increased warmth or erythema. Tender points:.? Mild tenderness to digital palpation at the trapezius, lateral epicondyle, knees, greater trochanter and gluteal area bilaterally. ? Results Reviewed Results Reviewed: Laboratory Tests 02/24/23 02/24/23 03/05/23 10:59 10:59 11:33 WBC 7.9 Hgb 13.6 Plt Count 350 Creatinine 0.70 AST 38 H ALT 55 H Alkaline Phosphatase 121 H C-React Prot High Sens 1.4 Albumin 4.5 Rheumatoid Factor NELLIE Titer 03/05/23 03/05/23 11:33 11:33 WBC Hgb Plt Count Creatinine AST ALT Alkaline Phosphatase C-React Prot High Sens Albumin Rheumatoid Factor < 13.0 NELLIE Titer 1:640 H Laboratory Tests 02/24/23 10:59 TSH 0.[address] [place] [address] [place] [id number] XRay Report Signed Patient: Linsey Clark MR#: [id number] : 1985 Acct:[id number] Age/Sex: 36 / F ADM Date: 04/18/22 Loc: HO.HMGCX Attending Dr: Seven Lorenzo MD Ordering Physician: Seven Lorenzo MD Date of Service: 04/18/22 Procedure(s): XR lumbar spine 2-3V Accession Number(s): [id number] cc: Seven Lorenzo MD~ EXAMINATION: XR LUMBOSACRAL SPINE CLINICAL INFORMATION: Low back pain. COMPARISON: None TECHNIQUE: Three views of the lumbosacral spine. FINDINGS: The vertebral bodies and posterior elements are normal. The disc spaces are preserved and the vertebral alignment is normal. Small calcifications overlying the pelvis have the appearance of phleboliths. The paraspinal soft tissues are normal. Surgical clips overlie the right upper quadrant. XR/XR lumbar spine 2-3V IMPRESSION: Unremarkable lumbar spine. Dictated By: Octaviano Max MD Signed By: <Electronically signed by Octaviano Max MD? Assessment & Plan Assessment & Plan (1) Positive NELLIE (antinuclear antibody): Code(s): R76.8 - Other specified abnormal immunological findings in serum (2) Polyarthralgia: Code(s): M25.50 - Pain in unspecified joint (3) Acid reflux: Comment: headaches from omeprazole will discontinue, begin famotidine 40 mg daily as well as Carafate 1 g b.i.d. Code(s): K21.9 - Gastro-esophageal reflux disease without esophagitis (4) Right elbow pain: Code(s): M25.521 - Pain in right elbow (5) Lumbago: Code(s): M54.50 - Low back pain, unspecified Plan The patient has some scattered pains, most of these look to be related to overuse situations as I do not see any joint swelling to suggest underlying inflammatory arthropathy peripherally. However she does have some nighttime back pain, this has been chronic now for the past 2 years. There is some improvement with daytime back activities so this does suggest inflammatory back pain. The NELLIE is positive but there is no sign have active SLE. I will check some further lab work including urine protein, CMP, CRP, ESR, anti DNA, anti DAJUAN, and Sjogren's antibodies. We will try her on some low-dose meloxicam at 7.5 mg with supper every day. To prevent heartburn which has been occurring occasionally I will add omeprazole 20 mg daily in the mornings. We will see her back in fiber 6 weeks to see if there is any improvement in her back pain and further go over her lab work. Today's visit took 48 minutes to collect the history, exam and explain the workup. Orders: Orders C Reactive Protein Today R76.8 - Other specified abnormal immunological findings in serum Protein Creatinine Ratio, Ur Today R76.8 - Other specified abnormal immunological findings in serum Erythrocyte Sedimentation Rate Today R76.8 - Other specified abnormal immunological findings in serum, R79.82 - Elevated C-reactive protein (CRP) Complement C3 Today R76.8 - Other specified abnormal immunological findings in serum Complement C4 Today R76.8 - Other specified abnormal immunological findings in serum Anti DNA DS Antibody Today R76.8 - Other specified abnormal immunological findings in serum Anti Extractable Nuclear Ag Today R76.8 - Other specified abnormal immunological findings in serum Sjogren's Antibodies Today R76.8 - Other specified abnormal immunological findings in serum XR elbow RT min 3V Today M25.521 - Pain in right elbow Medications: New meloxicam Take with food 7.5 mg PO DAILY 30 tabs 1RF M25.50 - Pain in unspecified joint omeprazole 20 mg PO DAILY 30 caps 1RF K21.9 - Gastro-esophageal reflux disease without esophagitis Coding Level of Care Code New Pt Level 4 (05139) Diagnoses Positive NELLIE (antinuclear antibody) R76.8 Polyarthralgia M25.50 Acid reflux K21.9 Right elbow pain M25.521 Lumbago M54.50
== END 2023-06-30 11:15 | disposition home or self-care (01) ==
PROVIDERS: PCP Internal Medicine; Visit Provider Internal Medicine Rheumatology
DX: R76.8 Other specified abnormal immunological findings in serum (principal); M25.50 Pain in unspecified joint; K21.9 Gastro-esophageal reflux disease without esophagitis; M25.521 Pain in right elbow; M54.50 Low back pain, unspecified
CPT/HCPCS: 99204

== ENCOUNTER 2023-06-30 11:36 | Outpatient (REF) | payer OTHER, SELFPAY ==
[2023-06-30 14:29] LABS: Erythrocyte Sedimentation Rate 13 MM/HR (0-20)
[2023-06-30 14:56] LABS: C Reactive Protein 0.29 mg/dL (< or = 0.50)
[2023-06-30 16:49] LABS: Creatinine Urine 21.63 mg/dL; Total Protein Urine Random < 7 mg/dL (<12)
[2023-07-01 22:49] LABS: Anti DNA DS Antibody <1 IU/mL; Antibody to SS-A Antigen <1.0 NEG AI (<1.0 NEG); Antibody to SS-B Antigen <1.0 NEG AI (<1.0 NEG); SM/Ribonucleoprotein Ab <1.0 NEG AI (<1.0 NEG); Smith Protein <1.0 NEG AI (<1.0 NEG)
[2023-07-03 04:18] LABS: Complement C3 176 mg/dL (83-193)
== END 2023-06-30 11:37 | disposition home or self-care (01) ==
LOC: HO.10HDL 11:36
PROVIDERS: Visit Provider Internal Medicine Rheumatology
DX: R76.8 Other specified abnormal immunological findings in serum (principal); R79.82 Elevated C-reactive protein (CRP); M25.521 Pain in right elbow
CPT/HCPCS: 36415; 84156; 85652; 86140; 86160; 86225; 86235

== ENCOUNTER 2023-08-13 11:36 | Outpatient (AMB) | payer OTHER, SELFPAY ==
--- NOTE | 2023-08-13 11:44 | MHC.OFFVIS ---
Intake Vital Signs 08/13/23 11:46 Height 4 ft 11 in Weight 139 lb BMI 28.1 BP 115/77 Blood Pressure Location Rt brachial Position Sitting Respiration 16 Pulse 78 Pulse Source Pulse Oximeter Temp 97.7 F Temp Source Skin Pulse Oximetry (%) 98 Oxygen Delivery Method Room Air Intake Visit Reasons: LBP / pos patricia Rotary Operator Required: Yes Allergies No Known Allergies [No Known Allergies*] Allergy (Verified 08/13/23 11:47) Medication List - Last Reconciled 08/13/23 by Gogo Dugan RN meloxicam 7.5 mg PO DAILY HPI HPI Comments History of Present Illness Details The patient returns for evaluation of her positive PATRICIA. The visit today is done with the assistance of the iPad translating service. We had done some blood work and x-rays of the lower back and right elbow. She reports still occasional low back and right elbow pain although she spent about 3 weeks in her [place] earlier this summer and felt fine with no joint pain. She does not have any skin rashes, oral ulcers, chest pain or abdominal pain. She had been prescribed the meloxicam but did not think she needed it so she never took it. She said she had some repeat testing done in [facility] and was told the tests were normal. She does not have a copy of those tests with her today. Her back pain is in the lumbar region. It tends to come and go at various times without a particular pattern. She does notice it more towards the end of her day. It does not wake her at night. [facility] Medical History Lumbago Positive PATRICIA (antinuclear antibody) Hypertriglyceridemia Polyarthralgia Bilateral flank pain History of Helicobacter pylori infection Iron deficiency anemia Steatosis Acid reflux Surgical History History of hysteroscopy History of laparoscopic cholecystectomy History of section Family History Father Medical history non-contributory Mother Thyroid disorder Maternal Grandmother Gallstone Maternal Aunt Gall stones Brother No problems noted. Brother No problems noted. Sister No problems noted. Sister No problems noted. Daughter No problems noted. Son No problems noted. Social History Household Members: Spouse Housing: House Alcohol intake: current Alcohol intake frequency: holidays/special occasions only Patient Tobacco Use Status: Never used Tobacco Tobacco use type: Cigarette e-Cigarette/Vaping Use: Never Used Second Hand Smoke Exposure: Yes service: No Current occupational status: unemployed Cognitive needs: No Hearing needs: No Vision needs: Yes Review of Systems Const Details: Negative for appetite change, weight change, fever, chills, malaise and fatigue Eyes Details: Negative for vision change, dry eyes,headaches and dizziness ENT Details: Negative for hearing change, tinnitus, oral ulcer, nose bleeds and oral dryness. Card Details: Negative chest pain, edema and syncope Resp Details: Negative for SOB, cough and wheezing GI Details: Negative indigestion/heartburn, nausea, abdominal pain, bowel changes, diarrhea, constipation and bloody stool. Skin/Breast Details: Negative for itching, rash, hives, Raynaud's symptoms, sun sensitivity, and skin cancer Endo Details: Negative for polyuria and polydypsia [place]/Lymph Details: Negative for excessive bruising or bleeding. Physical Exam Vital Signs: Last Vital Signs Temp 97.7 F 08/13/23 11:46 Pulse 78 08/13/23 11:46 Resp 16 08/13/23 11:46 BP 115/77 08/13/23 11:46 Pulse Ox 98 08/13/23 11:46 Oxygen Delivery Method Room Air 08/13/23 11:46 BMI result Body Mass Index 28.1 APPEARANCE: Patient in no acute distress EYES no redness, pupils equal and reactive to light, eyelids normal NOSE/SINUS: Airflow through both nares, no nasal discharge, no bleeding THROAT: Oral mucosa moist, no ulcerations NECK: No thyromegaly or masses, no adenopathy, trachea midline. HEART: Regulrar rhythm, S1-S2 heard, no murmurs, rubs or gallops. LUNG: Clear to percussion and auscultation ABD: Normal bowel sounds, no organomegaly, masses or tenderness. EXTREMITIES: No edema, no calf tenderness, normal peripheral pulses. No objective evidence of Raynaud's phenomenon NEURO: Oriented and alert x3. No focal weakness. Reflexes symmetric. Gait normal. SKIN: No inflammatory or neoplastic lesions. Normal color and turgor JOINT EXAM:.?? Cervical Spine:.? Full range of motion without pain; no tenderness. Thoracic Spine:.? No scoliosis.? No tenderness on palpation. Lumbar Spine:.? Alignment normal.? Full range of motion with slight lumbar discomfort with flexion at 75 degrees. No pain with hyperextension. No tenderness. Chest Wall:.? No tenderness, swelling, increased warmth or erythema. Hands:.? Left: Normal pain-free range of motion. There is no tenderness or swelling of the MCP or PIP joints. She has no flexor tendon, tenderness triggering or swelling. No joint swelling or tenderness. No thenar atrophy or sensory loss. Right: Normal pain-free range of motion without tenderness, swelling, increased warmth or erythema. No flexor tendon tenderness or triggering. No thenar atrophy or sensory loss. Wrists:.? Normal pain-free range of motion without tenderness, swelling, increased warmth or erythema. Elbows:. Right: Slight lateral epicondylar tenderness but pain-free range of motion. There is no tenderness or swelling over the joint space. Left: Normal pain-free range of motion without tenderness, swelling, increased warmth or erythema. Shoulders:.?? Full range of motion without pain. No tenderness, weakness, swelling, increased warmth or erythema. Hips:.? Full range of motion without pain. Hip bursa:.? No tenderness. Knees:.?? Normal pain-free range of motion without tenderness, swelling, increased warmth or erythema.? There is no effusion or crepitation Ankles:.? Normal pain-free range of motion without tenderness, swelling, increased warmth or erythema. Feet:.? Normal pain-free range of motion without tenderness, swelling, increased warmth or erythema. Tender points:.? Mild tenderness to digital palpation at the trapezius, lateral epicondyle, knees, greater trochanter area bilaterally. Results Reviewed Results Reviewed: June 30 lab work: ESR 13, CRP 0.29, Sjogren's antibodies negative, soheila negative, anti double-stranded DNA negative, C3-1 76, C4 [address] [address] XRay Report Signed Patient: Linsey Clark MR#: [id number] : 1985 Acct:[id number] Age/Sex: 38 / F ADM Date: 06/30/[address]: Jeff Navarro MD Ordering Physician: Jeff Navarro MD Date of Service: 06/30/23 Procedure(s): XR elbow RT min 3V Accession Number(s): [id number] cc: Jeff Navarro MD~ EXAMINATION: XR ELBOW, RIGHT CLINICAL INFORMATION: Pain COMPARISON: None available. TECHNIQUE: AP, lateral, and oblique views of the right elbow. FINDINGS: No acute visible fracture or dislocation. Joint spaces and alignment are maintained. No large elbow joint effusion. Soft tissues are unremarkable. XR/XR elbow RT min 3V IMPRESSION: No acute visible fracture or dislocation. Dictated By: Sabrina Roman MD Signed By: <Electronically signed by Sabrina Roman MD in OV> 07/07/23 1421 DD/ 1200 [facility] [address] [place] [address] [place] [address] XRay Report Signed Patient: Linsey Clark MR#: [id number] : 1985 Acct:[id number] Age/Sex: 36 / F ADM Date: 04/18/[address]: Seven Lorenzo MD Ordering Physician: Seven Lorenzo MD Date of Service: 04/18/22 Procedure(s): XR lumbar spine 2-3V Accession Number(s): [id number] cc: Seven Lorenzo MD~ EXAMINATION: XR LUMBOSACRAL SPINE CLINICAL INFORMATION: Low back pain. COMPARISON: None TECHNIQUE: Three views of the lumbosacral spine. FINDINGS: The vertebral bodies and posterior elements are normal. The disc spaces are preserved and the vertebral alignment is normal. Small calcifications overlying the pelvis have the appearance of phleboliths. The paraspinal soft tissues are normal. Surgical clips overlie the right upper quadrant. XR/XR lumbar spine 2-3V IMPRESSION: Unremarkable lumbar spine. Dictated By: Octaviano Max MD Assessment & Plan Assessment & Plan (1) Right elbow pain: Code(s): M25.521 - Pain in right elbow (2) Lumbago: Code(s): M54.50 - Low back pain, unspecified (3) Positive PATRICIA (antinuclear antibody): Code(s): R76.8 - Other specified abnormal immunological findings in serum Plan The patient has today just complains of right elbow pain which is consistent with some lateral epicondylitis and the lower back pain. The character of the pain at this point is not particularly disabling or bothersome to her since she has not taken any medications for it. It sounds more of a degenerative process. The LS spine films did not show evidence of degenerative disc disease, sacroiliitis, or osteoarthritis. Further testing looking into the possibility of lupus and Sjogren's was negative with lack of blood work findings for those disorders. She does have mild elevation of transaminases when last checked in January. She does have a GI appointment in August and I asked her to ask them to follow-up on that abnormality. She asked if she could take the meloxicam. I said she could try it at this point to see if it improved her back pain symptoms. She was warned that it could cause heartburn and stomach pain including even bleeding ulcers so she should be careful with that. We will suggest she return for a follow-up check in about 6 months. Review of her interim history, physical exam and discussion of the lab work took 31 minutes. Orders: Orders PT Evaluation and Treatment Today M54.50 - Low back pain, unspecified Coding Level of Care Code Est Pt Level 4 (48654) Diagnoses Right elbow pain M25.521 Lumbago M54.50 Positive PATRICIA (antinuclear antibody) R76.8
[2023-08-13 11:46] VITALS: BP 115/77; PULSE 78; RESP 16; TEMP 36.5; O2SAT 98; BMI 28.1
== END 2023-08-13 12:46 | disposition home or self-care (01) ==
PROVIDERS: PCP Internal Medicine; Visit Provider Internal Medicine Rheumatology
DX: M25.521 Pain in right elbow (principal); M54.50 Low back pain, unspecified; R76.8 Other specified abnormal immunological findings in serum
CPT/HCPCS: 99214

== ENCOUNTER → 2023-08-13 11:36 | Outpatient (BNVA) | payer OTHER, SELFPAY | PROVIDERS: PCP Internal Medicine; Visit Provider Internal Medicine Rheumatology ==

== ENCOUNTER 2023-10-01 09:01 | Outpatient (AMB) | payer OTHER, SELFPAY ==
--- NOTE | 2023-10-01 09:06 | MHC.OFFVIS ---
Intake Vital Signs 10/01/23 09:07 Height 4 ft 11 in Weight 144 lb 2.917 oz BMI 29.1 BP 110/56 L Blood Pressure Location Lt brachial Position Sitting Pulse 82 Intake Visit Reasons: 6 month follow up Intake Note: Linsey presents to 6 months in office follow up of GERD. CC: Patient reports she has been doing a lot better but is out of the Famotidine. She reports she takes famotidine PRN. Per patient her rheumaotologist suggested she have an enzyme test ordered by GI. Cold Molding Press Operator Required: Yes Cold Molding Press Operator Language: Hungarian Accompanied by: Self / Same As Patient Allergies No Known Allergies [No Known Allergies*] Allergy (Verified 10/01/23 09:10) HPI 6 month follow up HPI Details Assessment & Plan (1) Acid reflux: Comment: headaches from omeprazole will discontinue, begin famotidine 40 mg daily as well as Carafate 1 g b.i.d. Code(s): K21.9 - Gastro-esophageal reflux disease without esophagitis Plan: Hungarian #Radha Live She stopped the famotidine after taking it bid for a while. Then she suffered more GERD and whole body aches and a MEJIA. This is now fading. She would prefer to use the famotidine prn, and this is fine! Since she seems now stable, and has not needed carafate, I offer that she can follow with her primary for refills if she wants, and if the PCP agrees. She just saw her PCP yesterday, so I will extend her a 6 mos visit and she can cancel with me depending on her plans. ROV 6 mos. (2) Constipation: Code(s): K59.00 - Constipation, unspecified Medications: New famotidine (Pepcid ) 40 mg PO BEDTIME PRN 30 tabs 6RF he artburn K59.00 - Constipat ion, unspecified Laboratory Tests 02/24/23 02/24/23 03/05/23 10:59 10:59 11:33 WBC 7.9 Hgb 13.6 Hct 40.8 Plt Count 350 Estimated GFR > 60 Total Bilirubin 0.6 Direct Bilirubin 0.2 AST 38 H ALT 55 H Alkaline Phosphata se 121 H TSH 0.76 NELLIE Screen POSITIVE A NELLIE Pattern A QUM Nuclear, Multiple Nuclear Dots Abnormal Flag: A Multiple nuclear dots (6-20 in number per cell) are associated with primary biliary cholangitis (PBC), systemic autoimmune rheumatic diseases (SARD) and dermatomyositis. AC-6: Multiple Nuclear Dots International Consensus on NELLIE Patterns ([email or web address]) NELLIE Titer 2 1:160 H titer QUM Reference Range <1:40 Negative 1:40-1:80 Low Antibody Level >1:80 Elevated Antibody Level NELLIE Pattern 2 A QUM Cytoplasmic, Reticular/AMA Abnormal Flag: A Coarse granular filamentous staining extending throughout the cytoplasm (e.g., anti-mitochondrial antibodies). Pattern is common in primary biliary cholangitis (PBC), systemic sclerosis, and rare in other systemic autoimmune rheumatic diseases (SARD). AC-21: Reticular/AMA International Consensus on NELLIE Patterns ([email or web address]) NELLIE Titer 3 1:80 H titer QUM A low level NELLIE titer may be present in pre-clinical autoimmune diseases and normal individuals. Reference Range <1:40 Negative 1:40-1:80 Low Antibody Level >1:80 Elevated Antibody Level NELLIE Pattern 3 A QUM Mitotic, Intercellular Bridge Abnormal Flag: A Staining of the intercellular bridge that connects daughter cells by the end of cell division, but before cell separation. Pattern is rare in systemic sclerosis, Raynaud's phenomenon, and in some malignancies. AC-27: Intercellular Bridge International Consensus on NELLIE Patterns TODAY'S VISIT Hungarian # She does have mild elevation of transaminases when last checked in January. She does have a GI appointment in August and I asked her to ask them to follow-up on that abnormality. Jeff Navarro MD 08/13/23 1626 I will further investigate her transaminitis and the elevated NELLIE uncovered by neurological surgeon (it has some possible overlap with her rheumatologic conditions but can also point to PBC). She has gained wt recently, and she has a FHX of chronic liver problems in bother her paternal and maternal grandmothers. They did not drink ETOH no does she Her wt gain recently - about 10 llbs over 4 months. This could bump her transaminases. SHe explains that she has been travelling and eating more. She had not been following up with us referring to follow-up with her primary care provider since we are no longer prescribing famotidine her Carafate. Apparently it was just her neurological surgeon to referred her here. Investigation of the transaminitis. Return office visit in 8 weeks [facility] Medical History Lumbago Positive NELLIE (antinuclear antibody) Hypertriglyceridemia Polyarthralgia Bilateral flank pain History of Helicobacter pylori infection Iron deficiency anemia Steatosis Acid reflux Surgical History History of hysteroscopy History of laparoscopic cholecystectomy History of section Family History Father Medical history non-contributory Mother Thyroid disorder Maternal Grandmother Gallstone Maternal Aunt Gall stones Brother No problems noted. Brother No problems noted. Sister No problems noted. Sister No problems noted. Daughter No problems noted. Son No problems noted. Social History Household Members: Spouse Housing: House Alcohol intake: current Alcohol intake frequency: holidays/special occasions only Patient Tobacco Use Status: Never used Tobacco Tobacco use type: Cigarette e-Cigarette/Vaping Use: Never Used Second Hand Smoke Exposure: Yes service: No Current occupational status: unemployed Cognitive needs: No Hearing needs: No Vision needs: Yes Review of Systems Const Denies fatigue, Denies fever(s), Denies night sweats, Denies poor appetite, Reports weight gain and Denies weight loss ENT Reports Normal hearing present, Denies dental pain, Denies dysphagia, Denies hearing loss, Denies mouth pain, Denies odynophagia, Denies throat swelling, Denies tongue swelling and Reports other (Dentition adequate) Card Reports no additional complaints Resp Reports no additional complaints GI Denies abdominal pain, Denies melena, Denies bloating, Denies hematochezia, Denies constipation, Denies GI cramping, Denies dysphagia, Denies excessive flatus, Denies early satiety, Denies heartburn, Denies diarrhea, Denies nausea, Denies odynophagia, Denies vomiting and Denies hematemesis Skin/Breast Denies pruritus, Denies lesions, Denies rash and Denies jaundice Neuro Reports Normal hearing present and Denies Abnormal speech present Endo Denies fatigue Aller/Immun Denies throat swelling and Denies tongue swelling Physical Exam Vital Signs: Last Vital Signs Pulse 82 10/01/23 09:07 BP 110/56 L 10/01/23 09:07 BMI result Body Mass Index 29.1 Const General: cooperative, no acute distress, well developed and well groomed Nutritional Appearance: well nourished and obese Orientation/consciousness: oriented to person, oriented to place and oriented to time Limitations: language barrier HEENT Head: Yes normocephalic and Yes atraumatic Eyes General: appearance normal, both eyes and all related structures Pupils: Equal, round and reactive pupils present Neck Neck: Yes normal visual inspection and Yes no lymphadenopathy Thyroid: Thyroid normal Resp Effort & Inspection: normal respiratory effort and able to speak in complete sentences Auscultation: clear to auscultation bilaterally Cardio Rate: regular rate Rhythm: regular rhythm Heart sounds: Normal, physiologic split S2 sound present Peripheral pulses: radial pulses present and posterior tibial pulses present GI Inspection: No distended, No Abdominal panniculus present and Yes obesity Palpation (GI): Soft to palpation, nontender, no guarding, not rigid and No hepatosplenomegaly present Percussion: Yes normal to percussion Auscultation: normal bowel sounds Rectal Exam - Female: deferred Skin General skin exam: no rashes or lesions noted, turgor normal, skin not dry, no jaundice, No spider nevi and no striae Rashes: no rashes Nails: normal Neuro General: oriented to person, oriented to place and oriented to time Cranial nerves: Yes Equal, round and reactive pupils present and Yes Normal hearing present Speech: No Abnormal speech present Extrem General: Yes normal to inspection, No clubbing, No cyanosis and No edema Psych Appearance: grossly normal and well kempt Mental Status: mental status grossly normal Speech and movement: Normal speech and movement present Affect: normal affect Attitude: cooperative Thought process: Normal thought process present and not confabulating Thought content: Normal thought content present Insight: Limited insight present (Psych) Judgement: Limited judgement present (Psych) Results Reviewed Results Reviewed: 02/24/23 02/24/23 03/05/23 10:59 10:59 11:33 WBC 7.9 Hgb 13.6 Hct 40.8 Plt Count 350 Estimated GFR > 60 Total Bilirubin 0.6 Direct Bilirubin 0.2 AST 38 H ALT 55 H Alkaline Phosphatase 121 H TSH 0.76 NELLIE Screen POSITIVE A NELLIE Pattern A QUM Nuclear, Multiple Nuclear Dots Abnormal Flag: A Multiple nuclear dots (6-20 in number per cell) are associated with primary biliary cholangitis (PBC), systemic autoimmune rheumatic diseases (SARD) and dermatomyositis. AC-6: Multiple Nuclear Dots International Consensus on NELLIE Patterns ([email or web address]) NELLIE Titer 2 1:160 H titer QUM Reference Range <1:40 Negative 1:40-1:80 Low Antibody Level >1:80 Elevated Antibody Level NELLIE Pattern 2 A QUM Cytoplasmic, Reticular/AMA Abnormal Flag: A Coarse granular filamentous staining extending throughout the cytoplasm (e.g., anti-mitochondrial antibodies). Pattern is common in primary biliary cholangitis (PBC), systemic sclerosis, and rare in other systemic autoimmune rheumatic diseases (SARD). AC-21: Reticular/AMA International Consensus on NELLIE Patterns ([email or web address]) NELLIE Titer 3 1:80 H titer QUM A low level NELLIE titer may be present in pre-clinical autoimmune diseases and normal individuals. Reference Range <1:40 Negative 1:40-1:80 Low Antibody Level >1:80 Elevated Antibody Level NELLIE Pattern 3 A QUM Mitotic, Intercellular Bridge Abnormal Flag: A Staining of the intercellular bridge that connects daughter cells by the end of cell division, but before cell separation. Pattern is rare in systemic sclerosis, Raynaud's phenomenon, and in some malignancies. AC-27: Intercellular Bridge International Consensus on NELLIE Patterns Assessment & Plan Assessment & Plan (1) Transaminitis: Code(s): R74.01 - Elevation of levels of liver transaminase levels (2) Elevated antinuclear antibody (NELLIE) level: Code(s): R76.8 - Other specified abnormal immunological findings in serum Plan Hungarian # She does have mild elevation of transaminases when last checked in January. She does have a GI appointment in August and I asked her to ask them to follow-up on that abnormality. Jeff Navarro MD 08/13/23 1142 I will further investigate her transaminitis and the elevated NELLIE uncovered by neurological surgeon (it has some possible overlap with her rheumatologic conditions but can also point to PBC). She has gained wt recently, and she has a FHX of chronic liver problems in bother her paternal and maternal grandmothers. They did not drink ETOH no does she Her wt gain recently - about 10 llbs over 4 months. This could bump her transaminases. SHe explains that she has been travelling and eating more. She had not been following up with us referring to follow-up with her primary care provider since we are no longer prescribing famotidine her Carafate. Apparently it was just her neurological surgeon to referred her here. Investigation of the transaminitis. Return office visit in 8 weeks Orders: Orders Mitochondrial Antibody 10/01/23 R74.01 - Elevation of levels of liver transaminase levels, R76.8 - Other specified abnormal immunological findings in serum Smooth Muscle Antibody 10/01/23 R74.01 - Elevation of levels of liver transaminase levels, R76.8 - Other specified abnormal immunological findings in serum Hepatitis A,B,C Profile 10/01/23 R74.01 - Elevation of levels of liver transaminase levels, R76.8 - Other specified abnormal immunological findings in serum Ceruloplasmin 10/01/23 R74.01 - Elevation of levels of liver transaminase levels, R76.8 - Other specified abnormal immunological findings in serum Alpha Fetoprotein 10/01/23 R74.01 - Elevation of levels of liver transaminase levels, R76.8 - Other specified abnormal immunological findings in serum Ferritin 10/01/23 R74.01 - Elevation of levels of liver transaminase levels, R76.8 - Other specified abnormal immunological findings in serum HIV Ab/Ag 10/01/23 R74.01 - Elevation of levels of liver transaminase levels, R76.8 - Other specified abnormal immunological findings in serum Gamma Glutamyl Transpeptidase 10/01/23 R74.01 - Elevation of levels of liver transaminase levels, R76.8 - Other specified abnormal immunological findings in serum Prothrombin Time INR 10/01/23 R74.01 - Elevation of levels of liver transaminase levels, R76.8 - Other specified abnormal immunological findings in serum Liver Panel 10/01/23 R74.01 - Elevation of levels of liver transaminase levels, R76.8 - Other specified abnormal immunological findings in serum US abdomen comp w elastography 10/01/23 R74.01 - Elevation of levels of liver transaminase levels, R76.8 - Other specified abnormal immunological findings in serum Medications: New famotidine (Pepcid) 40 mg PO BEDTIME 30 tabs 6RF Coding Level of Care Code Est Pt Level 4 (73972) Diagnoses Transaminitis R74.01 Elevated antinuclear antibody (NELLIE) level R76.8
[2023-10-01 09:07] VITALS: BP 110/56; PULSE 82; BMI 29.1
== END 2023-10-01 09:32 | disposition home or self-care (01) ==
PROVIDERS: Visit Provider Nurse Practitioner
DX: R74.01 Elevation of levels of liver transaminase levels (principal); R76.8 Other specified abnormal immunological findings in serum
CPT/HCPCS: 99214

== ENCOUNTER 2023-10-01 09:01 | Outpatient (REF) | payer OTHER, SELFPAY ==
[2023-10-01 10:51] LABS: Alanine Aminotransferase 56 U/L (0-31); Albumin Level 4.4 g/dL (3.5-5.0); Alkaline Phosphatase 120 U/L (39-117); Aspartate Amino Transferase 39 U/L (5-31); Bilirubin Direct 0.1 mg/dL (0.0-0.5); Bilirubin Total 0.4 mg/dL (0.0-1.0)
[2023-10-01 11:06] LABS: HBS Num1 0.15 mIU/mL (0-7.99); HBc Num1 0.35 S/CO (0.00-0.79); HBsAGNum1 0.39 S/CO (0.00-0.99); HIV AB/AG Nonreactive (Nonreactive); HIV Num 1 0.05 S/CO (0.00-0.99); Hepatitis A Antibody IgM 0.39 Index (0-0.79); Hepatitis B Core Antibody Nonreactive (Nonreactive); Hepatitis B Surface Antigen Negative (Negative); ~HepC Num1 0.05 S/CO (0.00-0.79); ~Hepatitis A Antibody IgM Nonreactive (Nonreactive); ~Hepatitis B Surface Antibody NONREACTIVE (Nonreactive); ~Hepatitis C Antibody Nonreactive (Nonreactive)
[2023-10-01 11:08] LABS: Gamma Glutamyl Transpeptidase 226 U/L (7-33)
[2023-10-01 11:09] LABS: Ferritin 50 ng/mL (10-250)
[2023-10-03 12:48] LABS: Alpha Fetoprotein 1.5 ng/mL
[2023-10-03 17:34] LABS: Ceruloplasmin 29 mg/dL (18-53)
[2023-10-07 11:53] LABS: Smooth Muscle Antibody 22 U (<20)
[2023-10-08 11:14] LABS: Mitochondrial Antibodies POSITIVE (NEGATIVE)
== END 2023-10-01 09:02 | disposition home or self-care (01) ==
LOC: HO.LAB 09:01
PROVIDERS: PCP Internal Medicine; Visit Provider Nurse Practitioner
DX: R74.01 Elevation of levels of liver transaminase levels (principal); R76.8 Other specified abnormal immunological findings in serum
CPT/HCPCS: 36415; 80076; 82105; 82390; 82728; 82977; 85610; 86015; 86381; 86704; 86706; 86709; 86803; 87340; 87389

== ENCOUNTER 2023-11-11 09:33 | Outpatient (REF) | payer OTHER, SELFPAY | END 2023-11-11 09:34 | disposition home or self-care (01) | LOC: HO.US 09:33 | PROVIDERS: PCP Internal Medicine; Visit Provider Nurse Practitioner | DX: Z13.89 Encounter for screening for other disorder (principal) ==

== ENCOUNTER 2023-12-15 08:52 | Outpatient (REF) | payer OTHER, SELFPAY ==
--- NOTE | ~2023-12-15 | US_ITS ---
EXAMINATION: US COMPLETE ABDOMEN WITH LIVER ELASTOGRAPHY CLINICAL INFORMATION: Elevated liver transaminase levels. COMPARISON: Prior ultrasound examinations, most recently 07/24/2021; CT abdomen and pelvis dated 08/22/2021. None available. TECHNIQUE: Real-time imaging of the abdominal viscera. Noninvasive ultrasound liver fibrosis assessment is performed using [employer] point quantification shear wave elastography (2D-SWE) with a C5-2 MHz transducer. Multiple elastography samples are obtained. FINDINGS: PANCREAS: Normal. The visualized pancreatic head and body are normal in appearance. The remainder of the pancreas is obscured from visualization by the overlying bowel gas. ABDOMINAL AORTA: The proximal, middle, and distal aortic segments are normal in caliber. INFERIOR VENA CAVA: Visualized portions are normal. LIVER: Normal. The liver demonstrates normal size, contour and echogenicity. Within the right hepatic lobe, a 5 x 4 x 4 mm hyperechoic, circumscribed mass is newly seen, with ultrasound features characteristic for a benign hemangioma. No biliary duct dilatation. The right lobe measures 12.9 cm in length. The left lobe measures 8.5 cm in length. Portal flow is towards the liver (hepatopetal). Shear wave liver elastography median stiffness is 1.69 m/s (reference: normal median stiffness is 1.3 m/s or less). IQR/median stiffness to assess sampling precision is 0.15 (reference: good quality data set is IQR/median stiffness of 0.15 or less). GALLBLADDER: Surgically absent. COMMON BILE DUCT: Normal in caliber measuring 0.4 cm in diameter. RIGHT KIDNEY: At the interpolar aspect, a 5 mm benign, simple cyst is seen, for which no imaging follow-up is recommended. No hydronephrosis. No renal calculi or focal parenchymal lesions. The kidney measures 11.3 cm in maximum dimension. LEFT KIDNEY: Normal. No hydronephrosis. No renal calculi or focal parenchymal lesions. The kidney measures 11.8 cm in maximum dimension. SPLEEN: Normal. The spleen measures 8.5 cm in maximum dimension. FREE FLUID: None. US/US abdomen comp w elastography IMPRESSION: 1. There is generalized increase in hepatic echotexture, consistent with fatty infiltration or hepatocellular disease. Please correlate clinically. No focal hepatic mass or intrahepatic biliary dilatation is seen. 2. There is interim appearance of a 5 mm hyperechoic, circumscribed mass within the right hepatic lobe, with ultrasound features characteristic for a benign hemangioma. Given the elevation of transaminase levels, further evaluation with dynamic MRI may be useful. 3. Liver elastography: In the absence of other known clinical signs, measurements rule out compensated advanced chronic liver disease. If there are known clinical signs, further testing may be needed for confirmation. 4. The gallbladder is surgically absent. REFERENCE: Society of Radiologists in Ultrasound Liver Stiffness Thresholds (2020): LIVER STIFFNESS THRESHOLDS: *Liver Stiffness equal or less than 1.3 m/s: High probability of being normal. *Liver Stiffness less than 1.7 m/s: In the absence of other known clinical signs, rules out compensated advanced chronic liver disease. *Liver Stiffness 1.7-2.1 m/s: Suggestive of compensated advanced chronic liver disease but need further test for confirmation. *Liver Stiffness over 2.1 m/s: Rules in compensated advanced chronic liver disease. *Liver Stiffness over 2.4 m/s: Suggestive of clinically significant portal hypertension. QUALITY OF DATA SET: *IQR/Median value equal or less than 0.15 implies a quality data set. *IQR/Median value over 0.15 implies a poor quality data set. SIGNIFICANT CHANGE FROM PRIOR EXAM: Significant change if liver stiffness measurement is 10% or greater from prior exam. OTHER CONSIDERATIONS: The stage of liver fibrosis may be overestimated in the setting of acute hepatitis, liver inflammation, elevated liver function tests, hepatic vascular congestion, obstructive cholestasis, non-fasting state, and infiltrative diseases such as amyloidosis and lymphoma. In some patients with NAFLD, the liver stiffness thresholds for compensated advanced chronic liver disease may be lower. In causes other than viral hepatitis and NAFLD, liver stiffness thresholds are not well established.
== END 2023-12-15 08:53 | disposition home or self-care (01) ==
LOC: HO.US 08:52
PROVIDERS: PCP Internal Medicine; Visit Provider Nurse Practitioner
DX: R74.01 Elevation of levels of liver transaminase levels (principal); R76.8 Other specified abnormal immunological findings in serum
CPT/HCPCS: 76700; 76981

== ENCOUNTER 2024-01-07 09:27 | Outpatient (AMB) | payer OTHER, SELFPAY ==
[2024-01-07 09:30] VITALS: BP 124/72; PULSE 82; BMI 29.3
--- NOTE | 2024-01-07 09:30 | A.OFFVIS_ITS ---
Intake Vital Signs 01/07/24 09:30 Height 4 ft 11 in Weight 145 lb 1.027 oz BMI 29.3 BP 124/72 Blood Pressure Location Rt brachial Position Sitting Pulse 82 Intake Visit Reasons: 8 Weeks Follow Up Intake Note: Linsey returns to in office visit today in 8 weeks follow up of labs and US. CC: Patient reports that she has been having a lot of changes withing the last months. Patient c/o body aches, irregular menstruations, tiredness, insomnia, and mood changes. Patient states that her GI symptoms are worse as well. Processing Manager Required: Yes Processing Manager Language: Nauruan Accompanied by: Self / Same As Patient Allergies No Known Allergies [No Known Allergies*] Allergy (Verified 01/07/24 09:40) HPI 8 Weeks Follow Up HPI Details Assessment & Plan (1) Transaminitis: Code(s): R74.01 - Elevation of levels of liver transaminase levels (2) Elevated antinuclear antibody (NELLIE) level: Code(s): R76.8 - Other specified abnormal immunological findings in serum Plan Nauruan # She does have mild elevation of transaminases when last checked in January. She does have a GI appointment in August and I asked her to ask them to follow-up on that abnormality. Jeff Navarro MD 08/13/23 1144 I will further investigate her transaminitis and the elevated NELLIE uncovered by fuse cup expander (it has some possible overlap with her rheumatologic conditions but can also point to PBC). She has gained wt recently, and she has a FHX of chronic liver problems in bother her paternal and maternal grandmothers. They did not drink ETOH no does she Her wt gain recently - about 10 llbs over 4 months. This could bump her transaminases. SHe explains that she has been travelling and eating more. She had not been following up with us referring to follow-up with her primary care provider since we are no longer prescribing famotidine her Carafate. Apparently it was just her fuse cup expander to referred her here. Investigation of the transaminitis. Return office visit in 8 weeks Orders: Orders Mitochondrial Anti body 10/01/23 R74.01 - Elevation of levels of live r transaminase lev els, R76.8 - Other specified abnorma l immunological fi ndings in serum Smooth Muscle Anti body 10/01/23 R74.01 - Elevation of levels of live r transaminase lev els, R76.8 - Other specified abnorma l immunological fi ndings in serum Hepatitis A,B,C Pr ofile 10/01/23 R74.01 - Elevation of levels of live r transaminase lev els, R76.8 - Other specified abnorma l immunological fi ndings in serum Ceruloplasmin 10/01/23 R74.01 - Elevation of levels of live r transaminase lev els, R76.8 - Other specified abnorma l immunological fi ndings in serum Alpha Fetoprotein 10/01/23 R74.01 - Elevation of levels of live r transaminase lev els, R76.8 - Other specified abnorma l immunological fi ndings in serum Ferritin 10/01/23 R74.01 - Elevation of levels of live r transaminase lev els, R76.8 - Other specified abnorma l immunological fi ndings in serum HIV Ab/Ag 10/01/23 R74.01 - Elevation of levels of live r transaminase lev els, R76.8 - Other specified abnorma l immunological fi ndings in serum Gamma Glutamyl Tra nspeptidase 10/01/23 R74.01 - Elevation of levels of live r transaminase lev els, R76.8 - Other specified abnorma l immunological fi ndings in serum Prothrombin Time I NR 10/01/23 R74.01 - Elevation of levels of live r transaminase lev els, R76.8 - Other specified abnorma l immunological fi ndings in serum Liver Panel 10/01/23 R74.01 - Elevation of levels of live r transaminase lev els, R76.8 - Other specified abnorma l immunological fi ndings in serum US abdomen comp w elastography 10/01/23 R74.01 - Elevation of levels of live r transaminase lev els, R76.8 - Other specified abnorma l immunological fi ndings in serum Medications: New famotidine (Pepcid ) 40 mg PO BEDTIME 3 0 tabs 6RF LABS: Laboratory Tests 02/24/23 02/24/23 10/01/23 10:59 10:59 09:51 WBC 7.9 Hgb 13.6 Hct 40.8 Ferritin Total Bilirubin Direct Bilirubin GGT 226 H AST 39 H ALT 56 H Alkaline Phosphata se 120 H Ceruloplasmin Mitochondrial AB T iter Alpha Fetoprotein Anti-Mitochondrial Ab Anti-Smooth Muscle Ab Hepatitis A IgM Ab Hep Bs Antigen Hep Bs Antibody Hep B Core Total A b Hepatitis C Ab (EI A) HIV 1&2 Ab/P24 Ag 4thGn 10/01/23 10/01/23 09:51 09:51 WBC Hgb Hct Ferritin 50 Total Bilirubin 0.4 Direct Bilirubin 0.1 GGT AST ALT Alkaline Phosphata se Ceruloplasmin 29 Mitochondrial AB T iter 1:160 H Alpha Fetoprotein 1.5 Anti-Mitochondrial Ab POSITIVE A Anti-Smooth Muscle Ab 22 H Hepatitis A IgM Ab Nonreactive Hep Bs Antigen Negative Hep Bs Antibody NONREACTIVE Hep B Core Total A b Nonreactive Hepatitis C Ab (EI A) Nonreactive HIV 1&2 Ab/P24 Ag 4thGn Nonreactive Nuclear, Multiple Nuclear Dots Abnormal Flag: A Multiple nuclear dots (6-20 in number per cell) are associated with primary biliary cholangitis (PBC), systemic autoimmune rheumatic diseases (SARD) and dermatomyositis. AC-6: Multiple Nuclear Dots International Consensus on NELLIE Patterns (https://[email or web address]/[email or web address]) NELLIE Titer 2 1:160 H titer Reference Range <1:40 Negative 1:40-1:80 Low Antibody Level >1:80 Elevated Antibody Level NELLIE Pattern 2 A Cytoplasmic, Reticular/AMA Abnormal Flag: A Coarse granular filamentous staining extending throughout the cytoplasm (e.g., anti-mitochondrial antibodies). Pattern is common in primary biliary cholangitis (PBC), systemic sclerosis, and rare in other systemic autoimmune rheumatic diseases (SARD). AC-21: Reticular/AMA International Consensus on NELLIE Patterns ([email or web address]://[email or web address]/[email or web address]-[email or web address]) NELLIE Titer 3 1:80 H titer A low level NELLIE titer may be present in pre-clinical autoimmune diseases and normal individuals. Reference Range <1:40 Negative 1:40-1:80 Low Antibody Level >1:80 Elevated Antibody Level NELLIE Pattern 3 A Mitotic, Intercellular Bridge Abnormal Flag: A Staining of the intercellular bridge that connects daughter cells by the end of cell division, but before cell separation. Pattern is rare in systemic sclerosis, Raynaud's phenomenon, and in some malignancies. AC-27: Intercellular Bridge International Consensus on NELLIE Patterns ULTRASOUND OF THE ABDOMEN WITH ELASTOGRAPHY 12/16/23 (F0 - F1) FINDINGS: PANCREAS: Normal. The visualized pancreatic head and body are normal in appearance. The remainder of the pancreas is obscured from visualization by the overlying bowel gas. ABDOMINAL AORTA: The proximal, middle, and distal aortic segments are normal in caliber. INFERIOR VENA CAVA: Visualized portions are normal. LIVER: Normal. The liver demonstrates normal size, contour and echogenicity. Within the right hepatic lobe, a 5 x 4 x 4 mm hyperechoic, circumscribed mass is newly seen, with ultrasound features characteristic for a benign hemangioma. No biliary duct dilatation. The right lobe measures 12.9 cm in length. The left lobe measures 8.5 cm in length. Portal flow is towards the liver (hepatopetal). Shear wave liver elastography median stiffness is 1.69 m/s (reference: normal median stiffness is 1.3 m/s or less). IQR/median stiffness to assess sampling precision is 0.15 (reference: good quality data set is IQR/median stiffness of 0.15 or less). GALLBLADDER: Surgically absent. COMMON BILE DUCT: Normal in caliber measuring 0.4 cm in diameter. RIGHT KIDNEY: At the interpolar aspect, a 5 mm benign, simple cyst is seen, for which no imaging follow-up is recommended. No hydronephrosis. No renal calculi or focal parenchymal lesions. The kidney measures 11.3 cm in maximum dimension. LEFT KIDNEY: Normal. No hydronephrosis. No renal calculi or focal parenchymal lesions. The kidney measures 11.8 cm in maximum dimension. SPLEEN: Normal. The spleen measures 8.5 cm in maximum dimension. FREE FLUID: None. US/US abdomen comp w elastography IMPRESSION: 1. There is generalized increase in hepa tic echotexture, consistent with fatty infiltration or hepatocellular disease. Please correlate clinically. No focal hepatic mass or intrahepatic biliary dilatation is seen. 2. There is interim appearance of a 5 mm hyperechoic, circumscribed mass within the right hepatic lobe, with ultrasound features characteristic for a benign hemangioma. Given the elevation of transaminase levels, further evaluation with dynamic MRI may be useful. 3. Liver elastography: In the absence o f other known clinical signs, measurements rule out compensated advanced chronic liver disease. If there are known clinical signs, further testing may be needed for confirmation. 4. The gallbladder is surgically absent. TODAY'S VISIT Nauruan Rox Calabrese (She does have mild elevation of transam inases when last checked in January. She does have a GI appointment in August and I asked her to ask them to follow-up on that abnormality. Jeff Navarro MD 08/13/23 1144) She says she has been horrible. She is having metomenorrhagia, and my joint problems have exploded recently and I am not sleeping. She currently is treating herself with meloxicam which is not working well. She is following with [facility] for this and as of yet has not dx. She has an appt with rheum 02/09. 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 I explain the result and that we need to do a liver biopsy to be sure what is going on, jimmy since she is currently being worked up under rheum. Given that she has a mildly elevated mitochondrial end of body but is well an NELLIE and a smooth muscle antibody we need to tease out if this is in fact from the liver or some other autoimmune process, and we even need to tease out possible autoimmune hepatitis from primary biliary cholangitis or combination of the 2. It is also possible that she simply has fatty liver disease, although this is less likely with the elevated SMA and AMA. ROV after liver biopsy. [facility] Medical History Lumbago Positive NELLIE (antinuclear antibody) Hypertriglyceridemia Polyarthralgia Bilateral flank pain History of Helicobacter pylori infection Iron deficiency anemia Steatosis Acid reflux Surgical History History of hysteroscopy History of laparoscopic cholecystectomy History of section Family History Father Medical history non-contributory Mother Thyroid disorder Maternal Grandmother Gallstone Maternal Aunt Gall stones Brother No problems noted. Brother No problems noted. Sister No problems noted. Sister No problems noted. Daughter No problems noted. Son No problems noted. Social History Household Members: Spouse Housing: House Alcohol intake: current Alcohol intake frequency: holidays/special occasions only Patient Tobacco Use Status: Never used Tobacco Tobacco use type: Cigarette e-Cigarette/Vaping Use: Never Used Second Hand Smoke Exposure: Yes service: No Current occupational status: unemployed Cognitive needs: No Hearing needs: No Vision needs: Yes Review of Systems Const Denies fatigue, Denies fever(s), Denies night sweats, Denies poor appetite and Denies weight loss ENT Reports Normal hearing present, Denies dental pain, Denies dysphagia, Denies hearing loss, Denies mouth pain, Reports neck pain, Denies odynophagia, Denies throat swelling, Denies tongue swelling and Reports other (Dentition adequate) Card Reports no additional complaints Resp Reports no additional complaints GI Details: Denies abdominal pain, Denies melena, Denies bloating, Denies hematochezia, Denies constipation, Denies GI cramping, Denies dysphagia, Denies excessive flatus, Denies early satiety, Denies heartburn, Denies diarrhea, Denies nausea, Denies odynophagia, Denies vomiting and Denies hematemesis Musc Reports back pain, Reports myalgias, Reports arthralgias, Reports neck pain and Reports stiffness Skin/Breast Denies pruritus, Denies lesions, Denies rash and Denies jaundice Neuro Reports Normal hearing present and Denies Abnormal speech present Endo Denies fatigue Aller/Immun Denies throat swelling and Denies tongue swelling Physical Exam Vital Signs: Last Vital Signs Pulse 82 01/07/24 09:30 BP 124/72 01/07/24 09:30 BMI result Body Mass Index 29.3 Const General: cooperative, no acute distress, well developed and well groomed Nutritional Appearance: well nourished and overweight Orientation/consciousness: oriented to person, oriented to place and oriented to time Limitations: language barrier HEENT Head: Yes normocephalic and Yes atraumatic Eyes General: appearance normal, both eyes and all related structures Pupils: Equal, round and reactive pupils present Neck Neck: Yes normal visual inspection and Yes no lymphadenopathy Thyroid: Thyroid normal Resp Effort & Inspection: normal respiratory effort and able to speak in complete sentences Auscultation: clear to auscultation bilaterally Cardio Rate: regular rate Rhythm: regular rhythm Heart sounds: Normal, physiologic split S2 sound present Peripheral pulses: radial pulses present and posterior tibial pulses present GI Inspection: No distended, No Abdominal panniculus present and Yes obesity Palpation (GI): Soft to palpation, nontender, no guarding, not rigid and No hepatosplenomegaly present Percussion: Yes normal to percussion Auscultation: normal bowel sounds Rectal Exam - Female: deferred Skin General skin exam: no rashes or lesions noted, turgor normal, skin not dry, no jaundice, No spider nevi and no striae Rashes: no rashes Nails: normal Neuro General: oriented to person, oriented to place and oriented to time Cranial nerves: Yes Equal, round and reactive pupils present and Yes Normal hearing present Speech: No Abnormal speech present Extrem General: Yes normal to inspection, No clubbing, No cyanosis and No edema Psych Appearance: grossly normal and well kempt Mental Status: mental status grossly normal Speech and movement: Normal speech and movement present Affect: normal affect Attitude: cooperative Thought process: Normal thought process present and not confabulating Thought content: Normal thought content present Insight: Limited insight present (Psych) Judgement: Limited judgement present (Psych) Results Reviewed Results Reviewed: Laboratory Tests 02/24/23 02/24/23 10/01/23 10:59 10:59 09:51 WBC 7.9 Hgb 13.6 Hct 40.8 Ferritin Total Bilirubin Direct Bilirubin GGT 226 H AST 39 H ALT 56 H Alkaline Phosphatase 120 H Ceruloplasmin Mitochondrial AB Titer Alpha Fetoprotein Anti-Mitochondrial Ab Anti-Smooth Muscle Ab Hepatitis A IgM Ab Hep Bs Antigen Hep Bs Antibody Hep B Core Total Ab Hepatitis C Ab (EIA) HIV 1&2 Ab/P24 Ag 4thGn 10/01/23 10/01/23 09:51 09:51 WBC Hgb Hct Ferritin 50 Total Bilirubin 0.4 Direct Bilirubin 0.1 GGT AST ALT Alkaline Phosphatase Ceruloplasmin 29 Mitochondrial AB Titer 1:160 H Alpha Fetoprotein 1.5 Anti-Mitochondrial Ab POSITIVE A Anti-Smooth Muscle Ab 22 H Hepatitis A IgM Ab Nonreactive Hep Bs Antigen Negative Hep Bs Antibody NONREACTIVE Hep B Core Total Ab Nonreactive Hepatitis C Ab (EIA) Nonreactive HIV 1&2 Ab/P24 Ag 4thGn Nonreactive ULTRASOUND OF THE ABDOMEN WITH ELASTOGRAPHY 12/16/23 (F0 - F1) FINDINGS: PANCREAS: Normal. The visualized pancreatic head and body are normal in appearance. The remainder of the pancreas is obscured from visualization by the overlying bowel gas. ABDOMINAL AORTA: The proximal, middle, and distal aortic segments are normal in caliber. INFERIOR VENA CAVA: Visualized portions are normal. LIVER: Normal. The liver demonstrates normal size, contour and echogenicity. Within the right hepatic lobe, a 5 x 4 x 4 mm hyperechoic, circumscribed mass is newly seen, with ultrasound features characteristic for a benign hemangioma. No biliary duct dilatation. The right lobe measures 12.9 cm in length. The left lobe measures 8.5 cm in length. Portal flow is towards the liver (hepatopetal). Shear wave liver elastography median stiffness is 1.69 m/s (reference: normal median stiffness is 1.3 m/s or less). IQR/median stiffness to assess sampling precision is 0.15 (reference: good quality data set is IQR/median stiffness of 0.15 or less). GALLBLADDER: Surgically absent. COMMON BILE DUCT: Normal in caliber measuring 0.4 cm in diameter. RIGHT KIDNEY: At the interpolar aspect, a 5 mm benign, simple cyst is seen, for which no imaging follow-up is recommended. No hydronephrosis. No renal calculi or focal parenchymal lesions. The kidney measures 11.3 cm in maximum dimension. LEFT KIDNEY: Normal. No hydronephrosis. No renal calculi or focal parenchymal lesions. The kidney measures 11.8 cm in maximum dimension. SPLEEN: Normal. The spleen measures 8.5 cm in maximum dimension. FREE FLUID: None. US/US abdomen comp w elastography IMPRESSION: 1. There is generalized increase in hepatic echotexture, consistent with fatty infiltration or hepatocellular disease. Please correlate clinically. No focal hepatic mass or intrahepatic biliary dilatation is seen. 2. There is interim appearance of a 5 mm hyperechoic, circumscribed mass within the right hepatic lobe, with ultrasound features characteristic for a benign hemangioma. Given the elevation of transaminase levels, further evaluation with dynamic MRI may be useful. 3. Liver elastography: In the absence of other known clinical signs, measurements rule out compensated advanced chronic liver disease. If there are known clinical signs, further testing may be needed for confirmation. 4. The gallbladder is surgically absent. Assessment & Plan Assessment & Plan (1) Elevated antinuclear antibody (NELLIE) level: Code(s): R76.8 - Other specified abnormal immunological findings in serum (2) Transaminitis: Comment: Baseline Laboratory Tests 10/01/23 WBC 7.9 Hgb 13.6 Hct 40.8 GGT 226 H AST 39 H ALT 56 H Alkaline Phosphatase 120 H Ferritin 50 Total Bilirubin 0.4 Direct Bilirubin 0.1 Ceruloplasmin 29 Mitochondrial AB Titer 1:160 H Alpha Fetoprotein 1.5 Anti-Mitochondrial Ab POSITIVE A Anti-Smooth Muscle Ab 22 H Hepatitis A IgM Ab Nonreactive Hep Bs Antigen Negative Hep Bs Antibody NONREACTIVE Hep B Core Total Ab Nonreactive Hepatitis C Ab (EIA) Nonreactive HIV 1&2 Ab/P24 Ag 4thGn Nonreactive Nuclear, Multiple Nuclear Dots Abnormal Flag: A Multiple nuclear dots (6-20 in number per cell) are associated with primary biliary cholangitis (PBC), systemic autoimmune rheumatic diseases (SARD) and dermatomyositis. AC-6: Multiple Nuclear Dots International Consensus on NELLIE Patterns ([email or web address]) NELLIE Titer 2 1:160 H titer Reference Range <1:40 Negative 1:40-1:80 Low Antibody Level >1:80 Elevated Antibody Level NELLIE Pattern 2 A Cytoplasmic, Reticular/AMA Abnormal Flag: A Coarse granular filamentous staining extending throughout the cytoplasm (e.g., anti-mitochondrial antibodies). Pattern is common in primary biliary cholangitis (PBC), systemic sclerosis, and rare in other systemic autoimmune rheumatic diseases (SARD). AC-21: Reticular/AMA International Consensus on NELLIE Patterns ([email or web address]) NELLIE Titer 3 1:80 H titer A low level NELLIE titer may be present in pre-clinical autoimmune diseases and normal individuals. Reference Range <1:40 Negative 1:40-1:80 Low Antibody Level >1:80 Elevated Antibody Level NELLIE Pattern 3 A Mitotic, Intercellular Bridge Abnormal Flag: A Staining of the intercellular bridge that connects daughter cells by the end of cell division, but before cell separation. Pattern is rare in systemic sclerosis, Raynaud's phenomenon, and in some malignancies. AC-27: Intercellular Bridge International Consensus on NELLIE Patterns ULTRASOUND OF THE ABDOMEN WITH ELASTOGRAPHY 12/16/23 (F0 - F1) ULTRASOUND OF THE ABDOMEN WITH ELASTOGRAPHY 12/16/23 (F0 - F1) FINDINGS: PANCREAS: Normal. The visualized pancreatic head and body are normal in appearance. The remainder of the pancreas is obscured from visualization by the overlying bowel gas. ABDOMINAL AORTA: The proximal, middle, and distal aortic segments are normal in caliber. INFERIOR VENA CAVA: Visualized portions are normal. LIVER: Normal. The liver demonstrates normal size, contour and echogenicity. Within the right hepatic lobe, a 5 x 4 x 4 mm hyperechoic, circumscribed mass is newly seen, with ultrasound features characteristic for a benign hemangioma. No biliary duct dilatation. The right lobe measures 12.9 cm in length. The left lobe measures 8.5 cm in length. Portal flow is towards the liver (hepatopetal). Shear wave liver elastography median stiffness is 1.69 m/s (reference: normal median stiffness is 1.3 m/s or less). IQR/median stiffness to assess sampling precision is 0.15 (reference: good quality data set is IQR/median stiffness of 0.15 or less). GALLBLADDER: Surgically absent. COMMON BILE DUCT: Normal in caliber measuring 0.4 cm in diameter. RIGHT KIDNEY: At the interpolar aspect, a 5 mm benign, simple cyst is seen, for which no imaging follow-up is recommended. No hydronephrosis. No renal calculi or focal parenchymal lesions. The kidney measures 11.3 cm in maximum dimension. LEFT KIDNEY: Normal. No hydronephrosis. No renal calculi or focal parenchymal lesions. The kidney measures 11.8 cm in maximum dimension. SPLEEN: Normal. The spleen measures 8.5 cm in maximum dimension. FREE FLUID: None. US/US abdomen comp w elastography IMPRESSION: 1. There is generalized increase in hepatic echotexture, consistent with fatty infiltration or hepatocellular disease. Please correlate clinically. No focal hepatic mass or intrahepatic biliary dilatation is seen. 2. There is interim appearance of a 5 mm hyperechoic, circumscribed mass within the right hepatic lobe, with ultrasound features characteristic for a benign hemangioma. Given the elevation of transaminase levels, further evaluation with dynamic MRI may be useful. 3. Liver elastography: In the absence of other known clinical signs, measurements rule out compensated advanced chronic liver disease. If there are known clinical signs, further testing may be needed for confirmation. 4. The gallbladder is surgically absent. Code(s): R74.01 - Elevation of levels of liver transaminase levels Plan Nauruan #Miguelangel Calabrese (She does have mild elevation of transaminases when last checked in January. She does have a GI appointment in August and I asked her to ask them to follow-up on that abnormality. Jeff Navarro MD 08/13/23 2390) She says she has been horrible. She is having metomenorrhagia, and my joint problems have exploded recently and I am not sleeping. She currently is treating herself with meloxicam which is not working well. She is following with [facility] for this and as of yet has not dx. She has an appt with rheum 02/09. 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 I explain the result and that we need to do a liver biopsy to be sure what is going on, jimmy since she is currently being worked up under rheum. Given that she has a mildly elevated mitochondrial end of body but is well an NELLIE and a smooth muscle antibody we need to tease out if this is in fact from the liver or some other autoimmune process, and we even need to tease out possible autoimmune hepatitis from primary biliary cholangitis or combination of the 2. It is also possible that she simply has fatty liver disease, although this is less likely with the elevated SMA and AMA. This appointment was long due to patient Education as I had to explain the results and what the possible next steps would be including the liver biopsy in detail. ROV after liver biopsy. Orders: Orders Prothrombin Time INR Today R74.01 - Elevation of levels of liver transaminase levels, R76.8 - Other specified abnormal immunological findings in serum US biopsy liver Today R74.01 - Elevation of levels of liver transaminase levels, R76.8 - Other specified abnormal immunological findings in serum Coding Level of Care Code Est Pt Level 4 (22617) Diagnoses Elevated antinuclear antibody (NELLIE) level R76.8 Transaminitis R74.01 Time Spent (min) 43
== END 2024-01-07 10:07 | disposition home or self-care (01) ==
PROVIDERS: PCP Internal Medicine; Visit Provider Nurse Practitioner
DX: R76.8 Other specified abnormal immunological findings in serum (principal); R74.01 Elevation of levels of liver transaminase levels
CPT/HCPCS: 99214

== ENCOUNTER 2024-01-07 09:27 | Outpatient (REF) | payer OTHER, SELFPAY ==
[2024-01-07 10:47] LABS: Prothrombin Time 12.3 SEC (11.1-13.3)
== END 2024-01-07 09:28 | disposition home or self-care (01) ==
LOC: HO.LAB 09:27
PROVIDERS: PCP Internal Medicine; Visit Provider Nurse Practitioner
DX: R76.8 Other specified abnormal immunological findings in serum (principal); R74.01 Elevation of levels of liver transaminase levels
CPT/HCPCS: 36415; 85610

== ENCOUNTER → 2024-01-22 11:11 | Day surgery (SDC) | payer OTHER, SELFPAY ==
[2024-01-22 11:47] VITALS: BP 112/61; PULSE 82; RESP 17; TEMP 36.4; O2SAT 97; BMI 26.6
[2024-01-22 11:57] LABS: UPreg QC Valid YES; Urine Pregnancy NEGATIVE (NEGATIVE)
--- NOTE | 2024-01-22 12:13 | PC.NURSE ---
pt being cancelled by juana mcmahon took meloxicam twice this week 15mg for the liver pain needs to hold for 10daysawaiting interpertor to update patinet with new [facility] ordering physician need to reschedule after
[2024-01-22 12:19] LABS: MANUAL DIFF FLAG NO
--- NOTE | 2024-01-22 12:24 | PC.NURSE ---
interpeter at bedside patient aware to hold any nsaids and her meloxicam for 10days and any herbal medication, this rn gave her a list nsaids i will walk patient to radiology to reschedule pt aware james
[2024-01-22 12:27] LABS: Basophils Absolute Auto 0.1 X10*3/uL (0.0-0.2); Basophils Percent Auto 0.6 % (0-2); Eosinophils Absolute Auto 0.5 X10*3/uL (0.0-0.4); Eosinophils Percent Auto 6.1 % (0-4); Imm Gran Abs Auto 0.03 X10*3/uL (0.00-0.03); Imm Gran Pct Auto 0.4 % (0.0-0.4); Lymphocytes Absolute Auto 2.4 X10*3/uL (1.2-4.9); Lymphocytes Percent Auto 28.5 % (20-40); Mean Corpuscular HGB Conc 33.3 g/dl (31.0-35.0); Mean Corpuscular Hemoglobin 27.4 pg (27.0-33.0); Mean Corpuscular Volume 82.3 fL (80.0-98.0); Mean Platelet Volume 9.7 fL (9.4-12.3); Monocytes Absolute Auto 0.5 X10*3/uL (0.1-1.2); Monocytes Percent Auto 6.4 % (2-11); Neutrophils Absolute Auto 4.8 x10*3/uL (2.0-8.3); Platelet Count 312 X10*3/uL (160-400); Red Blood Count 4.74 X10*6/uL (4.20-5.50); Red Cell Distribution Width 11.9 % (11.0-16.0); White Blood Count 8.3 X10*3/uL (4.8-10.8)
== END ==
PROVIDERS: Physician Assistant Surgical; PCP Internal Medicine; Visit Provider Nurse Practitioner
DX: R74.01 Elevation of levels of liver transaminase levels (principal); Z53.09 Procedure and treatment not carried out because of other contraindication
CPT/HCPCS: 36415; 81025; 85025; 86850; 86900; 86901; J2250; J2310; J3010

== ENCOUNTER 2024-02-03 09:09 | Day surgery (SDC) | payer OTHER, SELFPAY ==
[2024-02-03] VITALS (10 sets, daily range): BP systolic 118–145; BP diastolic 59–87; PULSE 62–74; RESP 6–20; TEMP 36.2–36.3; O2SAT 94–97; BMI 26.3
--- NOTE | ~2024-02-03 | US_ITS ---
Ultrasound-guided liver biopsy History: Elevated LFTs Procedure: Ultrasound-guided liver biopsy Risks and benefits and possible complications were discussed with the patient and consent form was signed. The abdomen was prepped and draped in usual sterile fashion. 1% lidocaine was used for anesthesia. A 17-gauge coaxial needle was inserted through the skin and soft tissues and into the right lobe of the liver. A total of 3, 18-gauge cores were performed. Permanent ultrasound images were archived. 2 Gelfoam torpedoes were inserted through the coaxial and administered into the biopsy tract and at the level of the capsule. The needle was then removed. The specimens were placed in formalin and sent to pathology. The patient tolerated the procedure well. The procedure was performed under moderate sedation with a dedicated nurse for monitoring of vital signs. The patient received a total of 2 Versed, and 100 Fentanyl. Moderate sedation time: 15 min This procedure was performed by Joon Carcamo PA-C, and directly supervised by Dr. Short. US/US biopsy liver Impression: Ultrasound-guided liver biopsy
[2024-02-03 09:31] LABS: UPreg QC Valid YES
[2024-02-03 09:33] LABS: Urine Pregnancy NEGATIVE (NEGATIVE)
[2024-02-03] MEDS: Lidocaine HCl 1 % MPF 5 ML VIAL 10 ML SUBCUT (11:09)
[2024-02-03] MEDS: HYDROmorphone HCl 1 MG/ML SYRINGE IVPUSH (11:17)
== END 2024-02-03 13:24 | disposition home or self-care (01) ==
PROVIDERS: Physician Assistant Surgical; PCP Internal Medicine; Visit Provider Nurse Practitioner
DX: R74.01 Elevation of levels of liver transaminase levels (principal); R76.8 Other specified abnormal immunological findings in serum
CPT/HCPCS: 47000; 76942; 81025; 86850; 86900; 86901; 88307; 88313; 88342; 99152; J1170; J2250; J2310; J3010

== ENCOUNTER → 2024-02-03 09:51 | Outpatient (BNV) | payer OTHER, SELFPAY | PROVIDERS: PCP Internal Medicine; Visit Provider Physician Assistant Surgical | DX: R74.01 Elevation of levels of liver transaminase levels (principal) | CPT/HCPCS: 47000; 76942; 99152 ==

== ENCOUNTER 2024-02-10 09:12 | Outpatient (AMB) | payer OTHER, SELFPAY ==
--- NOTE | 2024-02-10 09:16 | A.OFFVIS_ITS ---
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 Navarro, presents today for follow up. PT appt not scheduled. 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 Stiles 38yoF returns for follow-up of her right elbow pain. The visit today is done with the assistance of the iPad translating service. She would like to review the blood work and x-rays of the lower back and right elbow. She reports still occasional low back and right elbow pain especially when she is vacuming. The pains returned after her visit to [facility] summer 2022 during which time she felt fine with no joint pain. She continues without skin rashes, oral ulcers, chest pain or abdominal pain. She had been prescribed the meloxicam but has not been taking it. She said she had some repeat testing done in [facility] and was told the tests were normal. She does not have a copy of those tests with her today. Her back pain is in the lumbar region. It tends to come and go at various times without a particular pattern. She does notice it more towards the end of her day. It does not wake her at night. [facility] Medical History Lumbago Positive PATRICIA (antinuclear antibody) Hypertriglyceridemia Polyarthralgia Bilateral flank pain History of Helicobacter pylori infection Iron deficiency anemia Steatosis Acid reflux Surgical History History of hysteroscopy History of laparoscopic cholecystectomy History of section Family History Father Medical history non-contributory Mother Thyroid disorder Maternal Grandmother Gallstone Maternal Aunt Gall stones Brother No problems noted. Brother No problems noted. Sister No problems noted. Sister No problems noted. Daughter No problems noted. Son No problems noted. Social History Household Members: Spouse Housing: House Alcohol intake: current Alcohol intake frequency: holidays/special occasions on ly Patient Tobacco Use Status: Never used Tobacco Tobacco use type: Cigarette e-Cigarette/Vaping Use: Never Used Second Hand Smoke Exposure: Yes service: No Current occupational status: unemployed Cognitive needs: No Hearing needs: No Vision needs: Yes Review of Systems Const All systems reviewed & are unremarkable except as noted in HPI and below Physical Exam Vital Signs: Last Vital Signs Temp 97.2 F 02/10/24 09:26 Pulse 87 02/10/24 09:26 BP 120/58 L 02/10/24 09:26 Pulse Ox 96 02/10/24 09:26 Oxygen Delivery Method Room Air 02/10/24 09:26 BMI result Body Mass Index 28.1 APPEARANCE: Patient in no acute distress EYES no redness, pupils equal and reactive to light, eyelids normal NOSE/SINUS: Airflow through both nares, no nasal discharge, no bleeding THROAT: Oral mucosa moist, no ulcerations NECK: No thyromegaly or masses, no adenopathy, trachea midline. HEART: Regulrar rhythm, S1-S2 heard, no murmurs, rubs or gallops. LUNG: Clear to percussion and auscultation ABD: Normal bowel sounds, no organomegaly, masses or tenderness. EXTREMITIES: No edema, no calf tenderness, normal peripheral pulses. No objective evidence of Raynaud's phenomenon NEURO: Oriented and alert x3. No focal weakness. Reflexes symmetric. Gait normal. SKIN: No inflammatory or neoplastic lesions. Normal color and turgor JOINT EXAM:.?? Cervical Spine:.? Full range of motion without pain; no tenderness. Thoracic Spine:.? No scoliosis.? No tenderness on palpation. Lumbar Spine:.? Alignment normal.? Full range of motion with slight lumbar discomfort with flexion at 75 degrees. No pain with hyperextension. No tenderness. Chest Wall:.? No tenderness, swelling, increased warmth or erythema. Hands:.? Left: Normal pain-free range of motion. There is no tenderness or swelling of the MCP or PIP joints. She has no flexor tendon, tenderness triggering or swelling. No joint swelling or tenderness. No thenar atrophy or sensory loss. Right: Normal pain-free range of motion without tenderness, swelling, increased warmth or erythema. No flexor tendon tenderness or triggering. No thenar atrophy or sensory loss. Wrists:.? Normal ROM with mIld lateral epicondylar tenderness also has pain in joint with fist pumping range of motion. There is no tenderness or swelling over the joint space. Left: Normal pain-free range of motion without tend erness, swelling, increased warmth or erythema. Shoulders:.?? Full range of motion without pain. No tenderness, weakness, swelling, increased warmth or erythema. Hips:.? Full range of motion without pain. Hip bursa:.? No tenderness. Knees:.?? Normal pain-free range of motion without tenderness, swelling, increased warmth or erythema.? There is no effusion or crepitation Ankles:.? Normal pain-free range of motion without tenderness, swelling, increased warmth or erythema. Feet:.? Normal pain-free range of motion without tenderness, swelling, increased warmth or erythema. Tender points:.? Mild tenderness to digital palpation at the trapezius, lateral epicondyle, knees, greater trochanter area bilaterally. Office Procedures Joint Injection/Drain Joint Injection/Drain Details: Right Elbow injection Lateral approach Primary Site: other Prep: site was prepped using aseptic technique Injected: 40 mg of, Kenalog, with 1 mL of and 1% plain lidocaine Approach Used: anterolateral Procedure: The patient tolerated the procedure well Coding 42118 - Medium joint Procedure code (CPT) selection complete Results Reviewed Results Reviewed: FINDINGS: No acute visible fracture or dislocation. Joint spaces and alignment are maintained. No large elbow joint effusion. Soft tissues are unremarkable. XR/XR elbow RT min 3V IMPRESSION: No acute visible fracture or dislocation. Assessment & Plan Assessment & Plan (1) Right elbow pain: Code(s): M25.521 - Pain in right elbow (2) Lumbago: Code(s): M54.50 - Low back pain, unspecified Qualifiers: Chronicity: chronic Back pain laterality: bilateral Sciatica presence: without sciatica Qualified Code(s): M54.50 - Low back pain, unspecified; G89.29 - Other chronic pain (3) Positive PATRICIA (antinuclear antibody): Code(s): R76.8 - Other specified abnormal immunological findings in serum Plan #Right Elbow pain/Lower back:Ms. Stiles returns with complaints and elbow and lower back pain. The right elbow pain is consistent with some lateral epicondylitis and I think it is ikely from use, doing house chorees such as v acuuming. She did not attend PT. I will given an injection in the joint today. I discussed with patient the possible side effects of the injection and that she should refrain from strenuous activities with her right hand for the next few days. The LS spine films did not show evidence of degenerative disc disease, sacroiliitis, or osteoarthritis. I recommended she take the meloxicam 15mg QD PRN as prescribed. I reminded her to take with food as it can cause heartburn and stomach pain including bleeding ulcers. I also discussed with patient that PT can help to strengthen upper body, and so would strength training that would benefit her upper body. #+PATRICIA:Given the +PATRICIA, further testing looking into the possibility of lupus and Sjogren's was negative with lack of blood work findings for those disorders. At this time she does not have a clinical presentation for Rheumatologic CTD. Sruthi have positive autoimmune liver antibodies so that is likely the reason for the +PATRICIA. She should continue to see GI for that. follow-up in 2 months. Review of her interim history, physical exam and discussion of the lab work and documentation took 40 minutes. Medications: New meloxicam Take with food 15 mg (2 x 7.5 mg) PO DAILY PRN 30 tabs 1RF Pain M25.50 - Pain in unspecified joint Coding Level of Care Code Est Pt Level 3 (00555) Diagnoses Right elbow pain M25.521 Chronic bilateral low back pain without sciatica M54.50; G89.29 Chronicity: chronic Back pain laterality: bilateral Sciatica presence: without sciatica Positive PATRICIA (antinuclear antibody) R76.8 CPT Codes Coding - 23058 Medium joint: 68298 - Medium joint ([id number])
[2024-02-10 09:26] VITALS: BP 120/58; PULSE 87; TEMP 36.2; O2SAT 96; BMI 28.1
== END 2024-02-10 09:58 | disposition home or self-care (01) ==
PROVIDERS: PCP Internal Medicine; Visit Provider Nurse Practitioner Family
DX: M25.521 Pain in right elbow (principal); M54.50 Low back pain, unspecified; G89.29 Other chronic pain; R76.8 Other specified abnormal immunological findings in serum
CPT/HCPCS: 20605; 99214

== ENCOUNTER → 2024-02-10 09:12 | Outpatient (BNVA) | payer OTHER, SELFPAY | PROVIDERS: PCP Internal Medicine; Visit Provider Nurse Practitioner Family | DX: M25.521 Pain in right elbow (principal); M54.50 Low back pain, unspecified; G89.29 Other chronic pain; R76.8 Other specified abnormal immunological findings in serum | CPT/HCPCS: 20605; J3301 ==

== ENCOUNTER 2024-02-19 11:53 | Outpatient (AMB) | payer OTHER, SELFPAY ==
--- NOTE | 2024-02-19 11:55 | MHC.OFFVIS ---
Intake Vital Signs 02/19/24 11:57 Height 4 ft 11 in Weight 139 lb 5.314 oz BMI 28.1 BP 127/74 Blood Pressure Location Rt brachial Position Sitting Pulse 80 Intake Visit Reasons: Liver bx follow up Intake Note: Linsey returns to in office for follow up of liver biopsy. CC: Patient states she has been doing well and denies having any GI symptoms. Liquid Loader Required: Yes Accompanied by: Self / Same As Patient Allergies No Known Allergies [No Known Allergies*] Allergy (Verified 02/19/24 12:03) HPI Liver bx follow up HPI Details Assessment & Plan (1) Elevated antinuclear antibody (NELLIE) level: Code(s): R76.8 - Other specified abnormal immunological findings in serum (2) Transaminitis: Comment: Baseline Laboratory Tests 10/01/23 WBC 7.9 Hgb 13.6 Hct 40.8 GGT 226 H AST 39 H ALT 56 H Alkaline Phosphatase 120 H Ferritin 50 Total Bilirubin 0.4 Direct Bilirubin 0.1 Ceruloplasmin 29 Mitochondrial AB Titer 1:160 H Alpha Fetoprotein 1.5 Anti-Mitochondrial Ab POSITIVE A Anti-Smooth Muscle Ab 22 H Hepatitis A IgM Ab Nonreactive Hep Bs Antigen Negative Hep Bs Antibody NONREACTIVE Hep B Core Total Ab Nonreactive Hepatitis C Ab (EIA) Nonreactive HIV 1&2 Ab/P24 Ag 4thGn Nonreactive Nuclear, Multiple Nuclear Dots Abnormal Flag: A Multiple nuclear dots (6-20 in number per cell) are associated with primary biliary cholangitis (PBC), systemic autoimmune rheumatic diseases (SARD) and dermatomyositis. AC-6: Multiple Nuclear Dots International Consensus on NELLIE Patterns ([email or web address]) NELLIE Titer 2 1:160 H titer Reference Range <1:40 Negative 1:40-1:80 Low Antibody Level >1:80 Elevated Antibody Level NELLIE Pattern 2 A Cytoplasmic, Reticular/AMA Abnormal Flag: A Coarse granular filamentous staining extending throughout the cytoplasm (e.g., anti-mitochondrial antibodies). Pattern is common in primary biliary cholangitis (PBC), systemic sclerosis, and rare in other systemic autoimmune rheumatic diseases (SARD). AC-21: Reticular/AMA International Consensus on NELLIE Patterns ([email or web address]) NELLIE Titer 3 1:80 H titer A low level NELLIE titer may be present in pre-clinical autoimmune diseases and normal individuals. Reference Range <1:40 Negative 1:40-1:80 Low Antibody Level >1:80 Elevated Antibody Level NELLIE Pattern 3 A Mitotic, Intercellular Bridge Abnormal Flag: A Staining of the intercellular bridge that connects daughter cells by the end of cell division, but before cell separation. Pattern is rare in systemic sclerosis, Raynaud's phenomenon, and in some malignancies. AC-27: Intercellular Bridge International Consensus on NELLIE Patterns ULTRASOUND OF THE ABDOMEN WITH ELASTOGRAPHY 12/16/23 (F0 - F1) ULTRASOUND OF THE ABDOMEN WITH ELASTOGRAPHY 12/16/23 (F0 - F1) FINDINGS: PANCREAS: Normal. The visualized pancreatic head and body are normal in appearance. The remainder of the pancreas is obscured from visualization by the overlying bowel gas. ABDOMINAL AORTA: The proximal, middle, and distal aortic segments are normal in caliber. INFERIOR VENA CAVA: Visualized portions are normal. LIVER: Normal. The liver demonstrates normal size, contour and echogenicity. Within the right hepatic lobe, a 5 x 4 x 4 mm hyperechoic, circumscribed mass is newly seen, with ultrasound features characteristic for a benign hemangioma. No biliary duct dilatation. The right lobe measures 12.9 cm in length. The left lobe measures 8.5 cm in length. Portal flow is towards the liver (hepatopetal). Shear wave liver elastography median stiffness is 1.69 m/s (reference: normal median stiffness is 1.3 m/s or less). IQR/median stiffness to assess sampling precision is 0.15 (reference: good quality data set is IQR/median stiffness of 0.15 or less). GALLBLADDER: Surgically absent. COMMON BILE DUCT: Normal in caliber measuring 0.4 cm in diameter. RIGHT KIDNEY: At the interpolar aspect, a 5 mm benign, simple cyst is seen, for which no imaging follow-up is recommended. No hydronephrosis. No renal calculi or focal parenchymal lesions. The kidney measures 11.3 cm in maximum dimension. LEFT KIDNEY: Normal. No hydronephrosis. No renal calculi or focal parenchymal lesions. The kidney measures 11.8 cm in maximum dimension. SPLEEN: Normal. The spleen measures 8.5 cm in maximum dimension. FREE FLUID: None. US/US abdomen comp w elastography IMPRESSION: 1. There is generalized increase in hepatic echotexture, consistent with fatty infiltration or hepatocellular disease. Please correlate clinically. No focal hepatic mass or intrahepatic biliary dilatation is seen. 2. There is interim appearance of a 5 mm hyperechoic, circumscribed mass within the right hepatic lobe, with ultrasound features characteristic for a benign hemangioma. Given the elevation of transaminase levels, further evaluation with dynamic MRI may be useful. 3. Liver elastography: In the absence of other known clinical signs, measurements rule out compensated advanced chronic liver disease. If there are known clinical signs, further testing may be needed for confirmation. 4. The gallbladder is surgically absent. Code(s): R74.01 - Elevation of levels of liver transaminase levels Plan Uzbek #Miguelangel Calabrese (She does have mild elevation of transaminases when last checked in January. She does have a GI appointment in August and I asked her to ask them to follow-up on that abnormality. Jeff Navarro MD 08/13/23 [id number]) She says she has been horrible. She is having metomenorrhagia, and my joint problems have exploded recently and I am not sleeping. She currently is treating herself with meloxicam which is not working well. She is following with PRICING DIRECTOR for this and as of yet has not dx. She has an appt with rheum 02/09. She is having trouble explaining her problems to her PRICING DIRECTOR r/t no bacon skin lifter available - I give her a handwritten note explaining the situation. I explain the result and that we need to do a liver biopsy to be sure what is going on, jimmy since she is currently being worked up under rheum. Given that she has a mildly elevated mitochondrial end of body but is well an NELLIE and a smooth muscle antibody we need to tease out if this is in fact from the liver or some other autoimmune process, and we even need to tease out possible autoimmune hepatitis from primary biliary cholangitis or combination of the 2. It is also possible that she simply has fatty liver disease, although this is less likely with the elevated SMA and AMA. This appointment was long due to patient Education as I had to explain the results and what the possible next steps would be including the liver biopsy in detail. ROV after liver biopsy. Orders: Orders Prothrombin Time I NR Today R74.01 - Elevation of levels of live r transaminase lev els, R76.8 - Other specified abnorma l immunological fi ndings in serum US biopsy liver Today R74.01 - Elevation of levels of live r transaminase lev els, R76.8 - Other specified abnorma l immunological fi ndings in serum LABS: Collected: 02/03/24 Location: [facility] Received: 02/03/24 Diagnosis Liver, right lobe, needle core biopsy: Chronic hepatitis with mild chronic portal inflammation, florid duct lesions and patchy bile duct damage, consistent with primary biliary cholangitis (see comment). COMMENT: The biopsy shows portal inflammation consisting of lymphocytes, plasma cells and a few eosinophils with bile duct lesions in a few portal areas (PBC- Stage 1). Inflammation extends as interface hepatitis into adjacent lobules focally. Bridging fibrosis in the portal triads is not seen. Minimal steatosis is identified. The presence of elevated alkaline phosphatase, elevated antimitochondrial antibody and florid duct lesions support a diagnosis of primary biliary cholangitis (PBC). The results of special stains are as follows: Trichrome: shows focal portal fibrosis expansion Reticulin: confirms focal areas of expansion PAS-D: shows no cytoplasmic globules Iron: no increase in stainable iron stores CK7: highlights bile duct damage TODAY'S VISIT Uzbek #Judy Live She has PBC and it is at stage 1. I explain this to her and she is able to drive to [facility] if needed. She tells me that rheum has not found any other reason for her joint pain. She had a steroid injections that helped her elbow somewhat. I printed her information in Uzbek from the [facility] site on primary barrier early cholangitis for her information. This was quite a long appointment because she needs quite a lot of Education on this rather rare illness and what she can expect from treatment and prognosis. Return office visit in 8 weeks to see how she is tolerating the ursodiol and of course will need to do liver function follow-up in 3-6 months. [facility] Medical History Lumbago Positive NELLIE (antinuclear antibody) Hypertriglyceridemia Polyarthralgia Bilateral flank pain History of Helicobacter pylori infection Iron deficiency anemia Steatosis Acid reflux Surgical History History of hysteroscopy History of laparoscopic cholecystectomy History of section Family History Father Medical history non-contributory Mother Thyroid disorder Maternal Grandmother Gallstone Maternal Aunt Gall stones Brother No problems noted. Brother No problems noted. Sister No problems noted. Sister No problems noted. Daughter No problems noted. Son No problems noted. Social History Household Members: Spouse Housing: House Alcohol intake: current Alcohol intake frequency: holidays/special occasions only Patient Tobacco Use Status: Never used Tobacco Tobacco use type: Cigarette e-Cigarette/Vaping Use: Never Used Second Hand Smoke Exposure: Yes service: No Current occupational status: unemployed Cognitive needs: No Hearing needs: No Vision needs: Yes Review of Systems Const Reports fatigue, Denies fever(s), Denies night sweats, Denies poor appetite and Denies weight loss ENT Reports Normal hearing present, Denies dental pain, Denies dysphagia, Denies hearing loss, Denies mouth pain, Reports neck pain, Denies odynophagia, Denies throat swelling, Denies tongue swelling and Reports other (Dentition adequate) Card Reports no additional complaints Resp Reports no additional complaints GI Details: Denies abdominal pain, Denies melena, Denies bloating, Denies hematochezia, Denies constipation, Denies GI cramping, Denies dysphagia, Denies excessive flatus, Denies early satiety, Denies heartburn, Denies diarrhea, Denies nausea, Denies odynophagia, Denies vomiting and Denies hematemesis Reports abnormal menses and Reports menorrhagia Musc Reports back pain, Reports arthralgias, Reports neck pain and Reports stiffness Skin/Breast Denies pruritus, Denies lesions, Denies rash and Denies jaundice Neuro Reports Normal hearing present and Denies Abnormal speech present Endo Reports fatigue Aller/Immun Denies throat swelling and Denies tongue swelling Physical Exam Vital Signs: Last Vital Signs Pulse 80 02/19/24 11:57 BP 127/74 02/19/24 11:57 BMI result Body Mass Index 28.1 Const General: cooperative, no acute distress, well developed and well groomed Nutritional Appearance: average body habitus and well nourished Orientation/consciousness: oriented to person, oriented to place and oriented to time Limitations: language barrier HEENT Head: Yes normocephalic and Yes atraumatic Eyes General: appearance normal, both eyes and all related structures Pupils: Equal, round and reactive pupils present Neck Neck: Yes normal visual inspection and Yes no lymphadenopathy Thyroid: Thyroid normal Resp Effort & Inspection: normal respiratory effort and able to speak in complete sentences Auscultation: clear to auscultation bilaterally Cardio Rate: regular rate Rhythm: regular rhythm Heart sounds: Normal, physiologic split S2 sound present Peripheral pulses: radial pulses present and posterior tibial pulses present GI Inspection: No distended and No Abdominal panniculus present Palpation (GI): Soft to palpation, nontender, no guarding, not rigid and No hepatosplenomegaly present Percussion: Yes normal to percussion Auscultation: normal bowel sounds Rectal Exam - Female: deferred Skin General skin exam: no rashes or lesions noted, turgor normal, skin not dry, no jaundice, No spider nevi and no striae Rashes: no rashes Nails: normal Neuro General: oriented to person, oriented to place and oriented to time Cranial nerves: Yes Equal, round and reactive pupils present and Yes Normal hearing present Speech: No Abnormal speech present Extrem General: Yes normal to inspection, No clubbing, No cyanosis and No edema Psych Appearance: grossly normal and well kempt Mental Status: mental status grossly normal Speech and movement: Normal speech and movement present Affect: normal affect Attitude: cooperative Thought process: Normal thought process present and not confabulating Thought content: Normal thought content present Insight: Limited insight present (Psych) Judgement: Limited judgement present (Psych) Results Reviewed Results Reviewed: LABS: Collected: 02/03/24 Location: [facility] Received: 03/05/24 Diagnosis Liver, right lobe, needle core biopsy: Chronic hepatitis with mild chronic portal inflammation, florid duct lesions and patchy bile duct damage, consistent with primary biliary cholangitis (see comment). COMMENT: The biopsy shows portal inflammation consisting of lymphocytes, plasma cells and a few eosinophils with bile duct lesions in a few portal areas (PBC- Stage 1). Inflammation extends as interface hepatitis into adjacent lobules focally. Bridging fibrosis in the portal triads is not seen. Minimal steatosis is identified. The presence of elevated alkaline phosphatase, elevated antimitochondrial antibody and florid duct lesions support a diagnosis of primary biliary cholangitis (PBC). The results of special stains are as follows: Trichrome: shows focal portal fibrosis expansion Reticulin: confirms focal areas of expansion PAS-D: shows no cytoplasmic globules Iron: no increase in stainable iron stores CK7: highlights bile duct damag Assessment & Plan Assessment & Plan (1) Primary biliary cholangitis: Code(s): K74.3 - Primary biliary cirrhosis (2) Well woman exam: Code(s): Z01.419 - Encounter for gynecological examination (general) (routine) without abnormal findings Plan [place]zbek #Judy Live She has PBC and it is at stage 1. I explain this to her and she is able to drive to [facility] if needed. She tells me that rheum has not found any other reason for her joint pain. She had a steroid injections that helped her elbow somewhat. I printed her information in Uzbek from the [facility] site on primary barrier early cholangitis for her information. This was quite a long appointment because she needs quite a lot of Education on this rather rare illness and what she can expect from treatment and prognosis. Return office visit in 8 weeks to see how she is tolerating the ursodiol and of course will need to do liver function follow-up in 3-6 months. Orders: Referrals FASHION PHOTOGRAPHER Referral Z01.419 - Encounter for gynecological examination (general) (routine) without abnormal findings Medications: New ursodiol 300 mg PO TID 90 caps 6RF K74.3 - Primary biliary cirrhosis Coding Level of Care Code Est Pt Level 4 (90588) Diagnoses Primary biliary cholangitis K74.3 Well woman exam Z01.419
[2024-02-19 11:57] VITALS: BP 127/74; PULSE 80; BMI 28.1
== END 2024-02-19 12:45 | disposition home or self-care (01) ==
PROVIDERS: PCP Internal Medicine; Visit Provider Nurse Practitioner
DX: K74.3 Primary biliary cirrhosis (principal); Z01.419 Encounter for gynecological examination (general) (routine) without abnormal findings
CPT/HCPCS: 99214

== ENCOUNTER → 2024-02-19 11:53 | Outpatient (BNVA) | payer OTHER, SELFPAY | PROVIDERS: PCP Internal Medicine; Visit Provider Nurse Practitioner ==

== ENCOUNTER 2024-02-27 10:26 | Outpatient (AMB) | payer OTHER, SELFPAY ==
--- NOTE | 2024-02-27 10:48 | MHC.OFFVIS ---
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 Intake Note: having irregular periods and had an US done at [facility] was told she had a cyst on her ovary Central Office Repairer Supervisor Required: Yes Central Office Repairer Supervisor Language: Tajik Information Interpreted: non-clinical & clinical Slasher Tender Helper: Slasher Tender Helper Present (Macario) Allergies No Known Allergies [No Known Allergies*] Allergy (Verified 02/27/24 10:56) Is last menstrual period known: Yes Last menstrual period: 02/23/24 Post menopausal: No HPI 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 The patient gives a history of having seen a accountant budget provider in [place] named James and having issues with her periods where they were very irregular and she had an ultrasound done a month ago that said she had a cyst in her ovary and there was some discussion of being given a blood test. But she decided to seek care here and a referral was given. She does not want to have an exam today she cites her periods for the last 3 months as the following this last 1 started on February 22 and it is ending now her previous period was January 28 for about 4-5 days and she had 2 periods in December 01 at the very beginning and 1 on December 25. She also says around 8 days after her. She gets pain on both sides. She has a who has a vasectomy so that is her control. [facility] Medical History Lumbago Positive NELLIE (antinuclear antibody) Hypertriglyceridemia Polyarthralgia Bilateral flank pain History of Helicobacter pylori infection Iron deficiency anemia Steatosis Acid reflux Surgical History History of hysteroscopy History of laparoscopic cholecystectomy History of section Family History Father Medical history non-contributory Mother Thyroid disorder Maternal Grandmother Gallstone Maternal Aunt Gall stones Brother No problems noted. Brother No problems noted. Sister No problems noted. Sister No problems noted. Daughter No problems noted. Son No problems noted. Social History (Reviewed 02/27/24 @ 10:58 by SHANE Perez Household Members: Spouse Housing: House Alcohol intake: current Alcohol intake frequency: holidays/special occasions only Patient Tobacco Use Status: Never used Tobacco Tobacco use type: Cigarette e-Cigarette/Vaping Use: Never Used Second Hand Smoke Exposure: Yes service: No Current occupational status: unemployed Cognitive needs: No Hearing needs: No Vision needs: Yes Female Reproductive History Menstrual Age of Menarche: 12 Duration of menses: 3-5 days Date of last menstrual period: 02/23/24 control method: none and permanent sterilization Permanent Sterilization: Vasectomy Total pregnancies: 2 Full term: 2 Number of Living Children: 2 Date of last pap smear: 11/22/21 (negative) Physical Exam Vital Signs: Last Vital Signs BP 110/64 02/27/24 10:49 BMI result Body Mass Index 27.7 Assessment & Plan Assessment & Plan (1) Menorrhagia: Comment: 35-year-old female with history of menorrhagia polyp, fibroids, and anemia. She will repeat CBC. She is currently taking gummy iron supplements that she is able to tolerate. We had discussed a previous visit for her to follow-up with accountant budget, she says that she is having difficulty We have put in referral to accountant budget-she is well will make a phone call again today. She is encouraged to call questions or concerns. She is agreeable with the plan. We appreciate the opportunity to assist in the care of the patient. Will follow up telephone visit with mammography supervisor after blood work available for review. Code(s): N92.0 - Excessive and frequent menstruation with regular cycle Plan Patient is going to sign today for records from her previous provider's office. Since she did not want to complete the visit today we will have to review the records 1st and when we have her follow-up visit with her a plan can be made about whether not there is a need for follow-up ultrasound and at what interval it should be done. More of a plan can be made at the next visit when all as reviewed with her. In the meantime I want her to keep very good track of both her periods and also when she has pain and when it starts and when it gets stronger throughout her cycle I did raise the possibility with her that this may be simply represent increased sensitivity to ovulation that many women experience as they get older. Only through her doing her own homework of keeping track with her calendar can she discern what is going on. We will see her with both her calendar and when there are records available.. Coding Level of Care Code New Pt Level 3 (07355) Diagnoses Menorrhagia N92.0 Time Spent (min) 30 Comment 100% of time spent obtaining history and making plan of care
[2024-02-27 10:49] VITALS: BP 110/64; BMI 27.7
== END 2024-02-27 11:33 | disposition home or self-care (01) ==
PROVIDERS: PCP Internal Medicine; Visit Provider Advanced Practice Midwife
DX: N92.0 Excessive and frequent menstruation with regular cycle (principal)
CPT/HCPCS: 99203

== ENCOUNTER → 2024-02-27 10:26 | Outpatient (BNVA) | payer OTHER, SELFPAY | PROVIDERS: PCP Internal Medicine; Visit Provider Advanced Practice Midwife ==

== ENCOUNTER 2024-05-11 09:30 | Outpatient (AMB) | payer OTHER, SELFPAY ==
--- NOTE | 2024-05-11 10:05 | A.OFFPC_ITS ---
Vital Signs 05/11/24 10:06 Height 4 ft 11 in Weight 135 lb BMI 27.3 BP 106/68 Blood Pressure Location Lt brachial Position Sitting Pulse 80 Pulse Source Pulse Oximeter Pulse Oximetry (%) 98 Oxygen Delivery Method Room Air Intake Visit Reasons: Annual PE Intake Note: Pt is here today for PE. Pt last pap was 05/16/23 at [facility].Pt had mammogram done last year. Allergies No Known Allergies [No Known Allergies*] Allergy (Verified 08/31/24 22:00) Medication List - Last Reconciled 08/31/24 by Precious Garcia MD ursodiol 300 mg PO TID Tobacco use date assessed: 05/11/24 Dental Screening Dental Screen Date: 05/11/24 Did you have a dental visit in the last 12 months?: Yes Did you have a dental problem in the last 6 months where you did not have access to dental care?: No Was dental information given to patient?: Patient has dentist HPI Annual PE HPI Details 39-year-old lady here today for physical exam. She has been diagnosed to have primary biliary cholangitis, followed by [facility] in tolerating ursodiol. Has been feeling well with no complaints at present time. She is up-to-date with her cervical cancer screening, goes to [facility] and is up-to-date with her screening mammogram as well. Complains of pain on lateral aspect of right forearm, aggravated by doing any lifting with right hand, no history of trauma [facility] Medical History Elevated antinuclear antibody (NELLIE) level Hypertriglyceridemia Polyarthralgia History of Helicobacter pylori infection Iron deficiency anemia Acid reflux Surgical History History of hysteroscopy History of laparoscopic cholecystectomy History of section Family History Father Medical history non-contributory Mother Thyroid disorder Maternal Grandmother Gallstone Maternal Aunt Gall stones Brother No problems noted. Brother No problems noted. Sister No problems noted. Sister No problems noted. Daughter No problems noted. Son No problems noted. Social History Household Members: Spouse Housing: House Alcohol intake: current Alcohol intake frequency: holidays/special occasions only Patient Tobacco Use Status: Never used Tobacco Tobacco use type: Cigarette e-Cigarette/Vaping Use: Never Used Second Hand Smoke Exposure: Yes service: No Current occupational status: unemployed Cognitive needs: No Hearing needs: No Vision needs: Yes Female Reproductive History Menstrual Age of Menarche: 12 Questionnaire PHQ-9 Over the last 2 weeks, how often have you been bothered by any of the following problems? 1. Little interest or pleasure in doing things: not at all 2. Feeling down, depressed, or hopeless: not at all 3. Trouble falling or staying asleep, or sleeping too much: not at all 4. Feeling tired or having little energy: not at all 5. Poor appetite or overeating: not at all 6. Feeling bad about yourself - or that you are a failure or have let yourself or your family down: not at all 7. Trouble concentrating on things, such as reading the newspaper or watching television: not at all 8. Moving or speaking so slowly that other people could have noticed. Or the opposite - being so fidgety or restless that you have been moving around a lot more than usual: not at all 9. Thoughts that you would be better off or of hurting yourself in some way: not at all Total score: 0 Depression Screening Interpretation: Negative Depression Screening Done: Yes 65977 - PHQ-9 Billing: Yes Source: Developed by Drs. John Camarena, Larisa Humphries, Giuseppe Almazan and colleagues, with an educational sunshine from [employer]. Thrive Questionnaire Date Thrive assessed: 05/11/24 I am a: Patient What is your living situation today?: I have a steady place to live Within the past 12 months, did the food you bought not last and you didn't have the money to get more?: Never true Within the past 12 months, did you worry whether your food would run out before you got money to buy more?: Never true Do you have trouble paying for medicines?: No Do you have trouble getting transportation to medical appointments?: No Do you have trouble paying your heating and electricity bill?: No Do you have trouble taking care of your child, family member or friend?: No Do you have trouble with day-to-day activities such as bathing, preparing meals, shopping, managing finances, etc.?: No Are you currently unemployed and looking for a job?: No Are you interested in more education?: No Please select the resources that you would like help with: None THRIVE Score: 0 AUDIT C Alcohol Use Questionnaire (AUDIT-C) 1. How often do you have a drink containing alcohol?: Never 3. How often do you have six or more drinks on one occasion?: Never Total Score: 0 DANDY-7 AMB Questionnaire DANDY-7 Date DANDY - 7 assessed: 05/11/24 Feeling nervous, anxious, or on edge: 0 = Not at all Not being able to stop or control worryin = Not at all Worrying too much about different things: 0 = Not at all Trouble relaxin = Not at all Being so restless that it is hard to sit still: 0 = Not at all Becoming easily annoyed or irritable: 0 = Not at all Feeling afraid as if something awful might happen: 0 = Not at all Total DANDY-7 score (0-4 normal; 5-9 mild; 10-14 moderate; 15-21 severe): 0 Source: Developed by Drs. John Camarena, Larisa Humphries, Giuseppe Almazan and colleagues, with an educational sunshine from [employer]. DANDY-7 Assessment Billing DANDY-7 Assessment Tool: DANDY-7 Assessment 79286 Review of Systems Const Denies fatigue, Denies fever(s) and Denies poor appetite Eyes Details: Goes to [facility] for her routine eye exam, has an appointment this week ENT Details: Dental prophylaxis every 6 months Card Reports no additional complaints Resp Reports no additional complaints GI Reports as per HPI, Denies bloating, Denies change in bowel habits, Denies GI cramping, Denies excessive flatus, Denies nausea, Denies vomiting and Denies hematemesis Reports no additional complaints Musc Reports no additional complaints Skin/Breast Denies pruritus, Denies lesions, Denies rash and Denies jaundice Neuro Reports no additional complaints Psych Reports no additional complaints Endo Denies fatigue Milton/Lymph Reports no additional complaints Aller/Immun Reports no additional complaints Physical exam (Primary Care) Vital Signs: Last Vital Signs Pulse 80 05/11/24 10:06 BP 106/68 05/11/24 10:06 Pulse Ox 98 05/11/24 10:06 Oxygen Delivery Method Room Air 05/11/24 10:06 BMI result Body Mass Index 27.3 Tobacco/Smoking Status: Tobacco use Status Tobacco use date assessed 05/11/24 05/11/24 10:13 Patient Tobacco Use Status Never used Tobacco 05/11/24 10:06 Tobacco use type Cigarette 05/11/24 10:06 e-Cigarette/Vaping Use Never Used 05/11/24 10:06 PHQ-9: PHQ-9 Score PHQ-9: Total score 0 05/11/24 10:50 Depression Screening Interpretation: Negative Thrive Assessment: Date of Thrive Assessment Date Thrive assessed 05/11/24 05/11/24 10:17 Const General: comfortable, no acute distress and alert Nutritional Appearance: overweight Orientation/consciousness: patient oriented x3 HENMT Ears: external ears normal, TM's normal bilaterally and EAC's normal General nose exam: Normal external nose present Face and sinus: Yes face symmetric Mouth: Normal oral and palatal mucosa present, oropharynx normal and moist mucous membranes Eyes General: appearance normal, both eyes and all related structures Neck Neck: Yes normal visual inspection, Yes full ROM, Yes no lymphadenopathy and Yes supple Thyroid: Thyroid normal Chest Breast/axilla palpation: normal palpation of the breasts Resp Auscultation: clear to auscultation bilaterally Cardio Rate: regular rate Rhythm: regular rhythm Heart sounds: S1 normal heart sound present and S2 normal heart sound present GI Inspection: Yes normal to inspection Palpation (GI): Soft to palpation and no guarding Auscultation: normal bowel sounds General: Yes deferred (ff'd by BS OB-TEST FIXTURE ASSEMBLER) Back/Spine/Pelvis Back: No back tenderness Skin General skin exam: no rashes or lesions noted Neuro General: patient oriented x3, gait normal, moves all extremities, Normal light touch and pain sensation, no focal motor deficits and CN's II-XI intact bilaterally Extrem Other: Tenderness on palpation over lateral aspect of right forearm General: Yes full ROM, Yes no joint enlargement, Yes no clubbing, cyanosis or edema and Yes normal gait Psych Appearance: grossly normal and well kempt Mental Status: mental status grossly normal Speech and movement: Normal speech and movement present Affect: normal affect Thought process: Normal thought process present Results Reviewed Results Reviewed: sabrina: BradfordCynthiasonLinsey Age/Sex: 38/F : 1985 Unit#: [id number] Attend Dr: Mickey JAVIER-C Re01/22/24 Status: REG SDC Location: [facility] Disch: SPEC : [id number] GORDO: 01/22/24 STATUS: COMP REQ : [id number] RECD: 01/22/[address]: Joon Carcamo COMP: 01/22/24 ENTERED: 01/22/[address]: MickeyMarch JAVIER-C Precious Garcia MD ORDERED: CBC Auto Diff Test Result Flag Reference WBC 8.3 4.8-10.8 X10*3/uL RBC 4.74 4.20-5.50 X10*6/uL HGB 13.0 12.0-16.0 g/dl HCT 39.0 37.0-47.0 % MCV 82.3 80.0-98.0 fL MCH 27.4 27.0-33.0 pg MCHC 33.3 31.0-35.0 g/dl RDW 11.9 11.0-16.0 % PLT 312 160-400 X10*3/uL MPV 9.7 9.4-12.3 fL Neut Pct Auto 58.0 45-73 % ImGran Pct Auto 0.4 0.0-0.4 % Lymp Pct Auto 28.5 20-40 % Dorado Pct Auto 6.4 2-11 % Eos Pct Auto 6.1 H 0-4 % Baso Pct Auto 0.6 0-2 % NRBC Pct Auto 0.0 0.0-0.2 /100WBC ANC Neut Abs # 4.8 2.0-8.3 x10*3/uL ImGran Abs Auto 0.03 0.00-0.03 X10*3/uL Lymph Abs Auto 2.4 1.2-4.9 X10*3/uL Dorado Abs Auto 0.5 0.1-1.2 X10*3/uL Eos Abs Auto 0.5 H 0.0-0.4 X10*3/uL Baso Abs Auto 0.1 0.0-0.2 X10*3/uL NRBC Abs Auto 0.000 0.0-0.012 X10*3/uL Coding Level of Care Code Est Pt Prev Care 40-64y(95331) Diagnoses Tendinitis of right forearm M77.8 Hypertriglyceridemia E78.1 Annual visit for general adult medical examination with abnormal findings Z00.01 Primary biliary cholangitis K74.3 Additional Codes DANDY-7 Assessment Billing - DANDY-7 Assessment Tool: DANDY-7 Assessment 28831 ([id number])
[2024-05-11 10:06] VITALS: BP 106/68; PULSE 80; O2SAT 98; BMI 27.3
== END 2024-05-11 11:10 | disposition home or self-care (01) ==
PROVIDERS: PCP Internal Medicine; Visit Provider Internal Medicine
DX: M77.8 Other enthesopathies, not elsewhere classified (principal); E78.1 Pure hyperglyceridemia; Z00.01 Encounter for general adult medical examination with abnormal findings; K74.3 Primary biliary cirrhosis
CPT/HCPCS: 99499

== ENCOUNTER 2024-05-12 08:08 | Outpatient (REF) | payer OTHER, SELFPAY ==
[2024-05-12 10:54] LABS: Alanine Aminotransferase 13 U/L (0-31); Albumin Level 4.3 g/dL (3.5-5.0); Alkaline Phosphatase 77 U/L (39-117); Anion Gap 13 (12-20); Aspartate Amino Transferase 17 U/L (5-31); Bilirubin Total 0.7 mg/dL (0.0-1.0); Blood Urea Nitrogen 8 mg/dL (9-16); Calcium 9.3 mg/dL (8.4-10.2); Carbon Dioxide 23 mmol/L (22-29); Chloride 106 mmol/L (96-108); Cholesterol 180 mg/dL (<200); Estimated Glomerular Filt Rate > 60; Glucose Fasting 97 mg/dL (60-99); HDL Cholesterol 63 mg/dL (>40); LDL Cholesterol Calculated 96 mg/dL (<100); Potassium 3.8 mmol/L (3.3-5.1); Sodium 138 mmol/L (135-145); Total Protein 7.8 g/dL (6.5-8.0); Triglycerides 106 mg/dL (<150)
== END 2024-05-12 08:09 | disposition home or self-care (01) ==
LOC: HO.HMGCLDS 08:08
PROVIDERS: PCP Internal Medicine; Visit Provider Internal Medicine
DX: Z00.01 Encounter for general adult medical examination with abnormal findings (principal); M77.8 Other enthesopathies, not elsewhere classified; E78.1 Pure hyperglyceridemia
CPT/HCPCS: 36415; 80053; 80061

== ENCOUNTER 2024-05-28 11:38 | Outpatient (AMB) | payer OTHER, SELFPAY ==
--- NOTE | 2024-05-28 11:39 | MHC.OFFVIS ---
Vital Signs 05/28/24 11:46 Height 4 ft 11 in Weight 138 lb 7.205 oz BMI 28.0 BP 116/64 Blood Pressure Location Rt brachial Position Sitting Pulse 76 Pulse Source Pulse Oximeter Pulse Oximetry (%) 96 Oxygen Delivery Method Room Air Intake Visit Reasons: 8 week follow up Intake Note: Linsey presents to the office today for a scheduled 8 week FUV. CC; Pt reports that are feeling much better than they had been at their last visits. Pt denies any continued issues at the time. Pt denies any significant concerns at this time. Apron Trimmer Required: Yes Apron Trimmer Services: Apron Trimmer Offered & Declined Allergies No Known Allergies [No Known Allergies*] Allergy (Verified 05/28/24 11:48) HPI HPI 8 week follow up: Details: Assessment & Plan (1) Primary biliary cholangitis: Code(s): K74.3 - Primary biliary cirrhosis (2) Well woman exam: Code(s): Z01.419 - Encounter for gynecological examination (general) (routine) without abnormal findings Plan Finnish #Judy Live She has PBC and it is at stage 1. I explain this to her and she is able to drive to [facility] if needed. She tells me that rheum has not found any other reason for her joint pain. She had a steroid injections that helped her elbow somewhat. I printed her information in Finnish from the [facility] site on primary barrier early cholangitis for her information. This was quite a long appointment because she needs quite a lot of Education on this rather rare illness and what she can expect from treatment and prognosis. Return office visit in 8 weeks to see how she is tolerating the ursodiol and of course will need to do liver function follow-up in 3-6 months. Orders: Referrals [facility] JAILER Referral Z01.419 - Encounter for gynecological examination (general) (routine) without abnormal findings Medications: New ursodiol 300 mg PO TID 90 caps 6RF K74.3 - Primary biliary cirrhosis Laboratory Tests 10/01/23 05/12/24 09:51 08:11 GGT 226 H AST 39 H 17 ALT 56 H 13 Alkaline Phosphatase 120 H 77 TODAY'S VISIT Finnish #declines She is doing very well on the ursodial w/o and s/e. Her stomach problems have completely resolved. She is aware of the dramatic improvement in her labs and she is quite happy. Again educated this will be a chronic medication. ROV 6 mos. [facility] Medical History Elevated antinuclear antibody (NELLIE) level Transaminitis Lumbago Positive NELLEI (antinuclear antibody) Hypertriglyceridemia Polyarthralgia Bilateral flank pain History of Helicobacter pylori infection Iron deficiency anemia Steatosis Acid reflux Surgical History History of hysteroscopy History of laparoscopic cholecystectomy History of section Family History Father Medical history non-contributory Mother Thyroid disorder Maternal Grandmother Gallstone Maternal Aunt Gall stones Brother No problems noted. Brother No problems noted. Sister No problems noted. Sister No problems noted. Daughter No problems noted. Son No problems noted. Social History Household Members: Spouse Housing: House Alcohol intake: current Alcohol intake frequency: holidays/special occasions only Patient Tobacco Use Status: Never used Tobacco Tobacco use type: Cigarette e-Cigarette/Vaping Use: Never Used Second Hand Smoke Exposure: Yes service: No Current occupational status: unemployed Cognitive needs: No Hearing needs: No Vision needs: Yes Female Reproductive History Menstrual Age of Menarche: 12 Review of Systems Const Denies fatigue, Denies fever(s), Denies night sweats, Denies poor appetite and Denies weight loss ENT Reports Normal hearing present, Denies dental pain, Denies dysphagia, Denies hearing loss, Denies mouth pain, Denies odynophagia, Denies throat swelling, Denies tongue swelling and Reports other (Dentition adequate) Card Reports no additional complaints Resp Reports no additional complaints GI Details: Denies abdominal pain, Denies melena, Denies bloating, Denies hematochezia, Denies constipation, Denies GI cramping, Denies dysphagia, Denies excessive flatus, Denies early satiety, Denies heartburn, Denies diarrhea, Denies nausea, Denies odynophagia, Denies vomiting and Denies hematemesis Skin/Breast Denies pruritus, Denies lesions, Denies rash and Denies jaundice Neuro Reports Normal hearing present and Denies Abnormal speech present Endo Denies fatigue Aller/Immun Denies throat swelling and Denies tongue swelling Physical Exam Vital Signs: Last Vital Signs Pulse 76 05/28/24 11:46 BP 116/64 05/28/24 11:46 Pulse Ox 96 05/28/24 11:46 Oxygen Delivery Method Room Air 05/28/24 11:46 BMI result Body Mass Index 28.0 Const General: cooperative, no acute distress, well developed and well groomed Nutritional Appearance: well nourished and overweight Orientation/consciousness: oriented to person, oriented to place and oriented to time Limitations: No language barrier HEENT Head: Yes normocephalic and Yes atraumatic Eyes General: appearance normal, both eyes and all related structures Pupils: Equal, round and reactive pupils present Neck Neck: Yes normal visual inspection and Yes no lymphadenopathy Thyroid: Thyroid normal Resp Effort & Inspection: normal respiratory effort and able to speak in complete sentences Auscultation: clear to auscultation bilaterally Cardio Rate: regular rate Rhythm: regular rhythm Heart sounds: Normal, physiologic split S2 sound present Peripheral pulses: radial pulses present and posterior tibial pulses present GI Inspection: No distended and No Abdominal panniculus present Palpation (GI): Soft to palpation, nontender, no guarding, not rigid and No hepatosplenomegaly present Percussion: Yes normal to percussion Auscultation: normal bowel sounds Rectal Exam - Female: deferred Skin General skin exam: no rashes or lesions noted, turgor normal, skin not dry, no jaundice, No spider nevi and no striae Rashes: no rashes Nails: normal Neuro General: oriented to person, oriented to place and oriented to time Cranial nerves: Yes Equal, round and reactive pupils present and Yes Normal hearing present Speech: No Abnormal speech present Extrem General: Yes normal to inspection, No clubbing, No cyanosis and No edema Psych Appearance: grossly normal and well kempt Mental Status: mental status grossly normal Speech and movement: Normal speech and movement present Affect: normal affect Attitude: cooperative Thought process: Normal thought process present and not confabulating Thought content: Normal thought content present Insight: Limited insight present (Psych) Judgement: Limited judgement present (Psych) Assessment & Plan Assessment & Plan (1) Primary biliary cholangitis: Code(s): K74.3 - Primary biliary cirrhosis Category: Medical Plan Finnish #declines She is doing very well on the ursodial w/o and s/e. Her stomach problems have completely resolved. She is aware of the dramatic improvement in her labs and she is quite happy. Again educated this will be a chronic medication. ROV 6 mos. Medications: Refilled ursodiol 300 mg PO TID 90 caps 6RF K74.3 - Primary biliary cirrhosis Coding Level of Care Code Est Pt Level 3 (63315) Diagnoses Primary biliary cholangitis K74.3
[2024-05-28 11:46] VITALS: BP 116/64; PULSE 76; O2SAT 96; BMI 28.0
== END 2024-05-28 12:01 | disposition home or self-care (01) ==
PROVIDERS: PCP Internal Medicine; Visit Provider Nurse Practitioner
DX: K74.3 Primary biliary cirrhosis (principal)
CPT/HCPCS: 99213

== ENCOUNTER → 2024-05-28 11:38 | Outpatient (BNVA) | payer OTHER, SELFPAY | PROVIDERS: PCP Internal Medicine; Visit Provider Nurse Practitioner ==

== ENCOUNTER 2024-07-06 09:19 | Outpatient (AMB) | payer OTHER, SELFPAY ==
--- NOTE | 2024-07-06 09:31 | A.OFFVIS_ITS ---
Vital Signs 07/06/24 09:35 Height 4 ft 11 in Weight 139 lb 15.896 oz BMI 28.3 BP 112/62 Blood Pressure Location Rt brachial Position Sitting Respiration 16 Pulse 78 Pulse Source Pulse Oximeter Pulse Oximetry (%) 98 Oxygen Delivery Method Room Air Intake Visit Reasons: elbow pain Intake Note: Patient presents for elbow pain. Gamewell Operator Required: Yes Gamewell Operator Services: Gamewell Operator Present Gamewell Operator Name: [id number]#[id number] Allergies No Known Allergies [No Known Allergies*] Allergy (Verified 07/06/24 09:34) Medication List - Last Reconciled 07/06/24 by Beena Calderon MD ursodiol 300 mg PO TID HPI Comments Details: This is a 39-year-old female who presents for follow-up of her right elbow pain. She has a right tennis elbow. She was prescribed meloxicam but she did not take it as she was feeling well, her daughter was helping her chores at this time. She states that the elbow pain comes back with housework such as vacuuming. Stated that she had an injection in the area awhile back and it did not provide any relief. She was advised to some home exercises by her PCP and she did some but not regularly [facility] Medical History Elevated antinuclear antibody (NELLIE) level Transaminitis Lumbago Positive NELLIE (antinuclear antibody) Hypertriglyceridemia Polyarthralgia Bilateral flank pain History of Helicobacter pylori infection Iron deficiency anemia Steatosis Acid reflux Surgical History History of hysteroscopy History of laparoscopic cholecystectomy History of section Family History Father Medical history non-contributory Mother Thyroid disorder Maternal Grandmother Gallstone Maternal Aunt Gall stones Brother No problems noted. Brother No problems noted. Sister No problems noted. Sister No problems noted. Daughter No problems noted. Son No problems noted. Social History Household Members: Spouse Housing: House Alcohol intake: current Alcohol intake frequency: holidays/special occasions only Patient Tobacco Use Status: Never used Tobacco Tobacco use type: Cigarette e-Cigarette/Vaping Use: Never Used Second Hand Smoke Exposure: Yes service: No Current occupational status: unemployed Cognitive needs: No Hearing needs: No Vision needs: Yes Female Reproductive History Menstrual Age of Menarche: 12 Review of Systems [facility] Reports arthralgias and Reports limited range of motion Physical Exam Vital Signs: Last Vital Signs Pulse 78 07/06/24 09:35 Resp 16 07/06/24 09:35 BP 112/62 07/06/24 09:35 Pulse Ox 98 07/06/24 09:35 Oxygen Delivery Method Room Air 07/06/24 09:35 BMI result Body Mass Index 28.3 Const General: cooperative, healthy appearing and comfortable Nutritional Appearance: overweight Orientation/consciousness: patient oriented x3 Limitations: no limitations HEENT Head: Yes normocephalic and Yes atraumatic Mouth: moist mucous membranes Resp Effort & Inspection: normal respiratory effort and able to speak in complete sentences Skin General skin exam: no rashes or lesions noted Neuro General: patient oriented x3 Extrem Other: Tenderness at the common extensor origin on the right lateral epicondyle Assessment & Plan Assessment & Plan (1) Right tennis elbow: Code(s): M77.11 - Lateral epicondylitis, right elbow Category: Medical Plan: Did not take meloxicam. She stated that she had an injection in the past and it did not help, will refer patient to OT. Follow-up p.r.n. Plan I spent 15 minutes reviewing patient's chart, evaluating patient, counseling patient and documenting in the chart Orders: Orders OT Evaluation and Treatment Today M77.11 - Lateral epicondylitis, right elbow Coding Level of Care Code Est Pt Level 3 (98808) Diagnoses Right tennis elbow M77.11
[2024-07-06 09:35] VITALS: BP 112/62; PULSE 78; RESP 16; O2SAT 98; BMI 28.3
== END 2024-07-06 09:40 | disposition home or self-care (01) ==
PROVIDERS: PCP Internal Medicine; Visit Provider Student in an Organized Health Care Education/Training Program
DX: M77.11 Lateral epicondylitis, right elbow (principal)
CPT/HCPCS: 99213

== ENCOUNTER → 2024-07-06 09:19 | Outpatient (BNVA) | payer OTHER, SELFPAY | PROVIDERS: PCP Internal Medicine; Visit Provider Student in an Organized Health Care Education/Training Program ==

== ENCOUNTER 2024-11-19 11:53 | Outpatient (AMB) | payer OTHER, SELFPAY ==
--- NOTE | 2024-11-19 12:03 | MHC.OFFVIS ---
Intake Visit Reasons: 6 monthf ollow up Allergies No Known Allergies [No Known Allergies*] Allergy (Verified 08/31/24 22:00) HPI HPI 6 monthf ollow up: Details: Assessment & Plan (1) Primary biliary cholangitis: Code(s): K74.3 - Primary biliary cirrhosis Category: Medical Plan [place] #morales She is doing very well on the ursodial w/o and s/e. Her stomach problems have completely resolved. She is aware of the dramatic improvement in her labs and she is quite happy. Again educated this will be a chronic medication. ROV 6 mos. Medications: Refilled ursodiol 300 mg PO TID 90 caps 6RF K74.3 - Primary biliary cirrhosis Laboratory Tests 05/12/24 08:11 Total Bilirubin 0.7 AST 17 ALT 13 Alkaline Phosphatase 77 TODAY'S VISIT [place] #morales she will be going back to [facility] for Xmas. She continues to do well on the ursodiol. The initial transaminitis in her chart does not jive well with any of her subsequent labs and almost makes me wonder if this was entered on the wrong chart. ROV 6 mos. [facility] Medical History Elevated antinuclear antibody (NELLIE) level Hypertriglyceridemia Polyarthralgia History of Helicobacter pylori infection Iron deficiency anemia Acid reflux Surgical History History of hysteroscopy History of laparoscopic cholecystectomy History of section Family History Father Medical history non-contributory Mother Thyroid disorder Maternal Grandmother Gallstone Maternal Aunt Gall stones Brother No problems noted. Brother No problems noted. Sister No problems noted. Sister No problems noted. Daughter No problems noted. Son No problems noted. Social History Household Members: Spouse Housing: House Alcohol intake: current Alcohol intake frequency: holidays/special occasions only Patient Tobacco Use Status: Never used Tobacco Tobacco use type: Cigarette e-Cigarette/Vaping Use: Never Used Second Hand Smoke Exposure: Yes service: No Current occupational status: unemployed Cognitive needs: No Hearing needs: No Vision needs: Yes Female Reproductive History Menstrual Age of Menarche: 12 Review of Systems Const Denies fatigue, Denies fever(s), Denies night sweats, Denies poor appetite and Denies weight loss ENT Reports Normal hearing present, Denies dental pain, Denies dysphagia, Denies hearing loss, Denies mouth pain, Denies odynophagia, Denies throat swelling, Denies tongue swelling and Reports other (Dentition adequate) Card Reports no additional complaints Resp Reports no additional complaints GI Details: Denies abdominal pain, Denies melena, Denies bloating, Denies hematochezia, Denies constipation, Denies GI cramping, Denies dysphagia, Denies excessive flatus, Denies early satiety, Denies heartburn, Denies diarrhea, Denies nausea, Denies odynophagia, Denies vomiting and Denies hematemesis Skin/Breast Denies pruritus, Denies lesions, Denies rash and Denies jaundice Neuro Reports Normal hearing present and Denies Abnormal speech present Endo Denies fatigue Aller/Immun Denies throat swelling and Denies tongue swelling Physical Exam Const General: cooperative, no acute distress, well developed and well groomed Nutritional Appearance: average body habitus and well nourished Orientation/consciousness: oriented to person, oriented to place and oriented to time Limitations: No language barrier HEENT Head: Yes normocephalic and Yes atraumatic Eyes General: appearance normal, both eyes and all related structures Pupils: Equal, round and reactive pupils present Neck Neck: Yes normal visual inspection and Yes no lymphadenopathy Thyroid: Thyroid normal Resp Effort & Inspection: normal respiratory effort and able to speak in complete sentences Auscultation: clear to auscultation bilaterally Cardio Rate: regular rate Rhythm: regular rhythm Heart sounds: Normal, physiologic split S2 sound present Peripheral pulses: radial pulses present and posterior tibial pulses present GI Inspection: No distended and No Abdominal panniculus present Palpation (GI): Soft to palpation, nontender, no guarding, not rigid and No hepatosplenomegaly present Percussion: Yes normal to percussion Auscultation: normal bowel sounds Rectal Exam - Female: deferred Skin General skin exam: no rashes or lesions noted, turgor normal, skin not dry, no jaundice, No spider nevi and no striae Rashes: no rashes Nails: normal Neuro General: oriented to person, oriented to place and oriented to time Cranial nerves: Yes Equal, round and reactive pupils present and Yes Normal hearing present Speech: No Abnormal speech present Extrem General: Yes normal to inspection, No clubbing, No cyanosis and No edema Psych Appearance: grossly normal and well kempt Mental Status: mental status grossly normal Speech and movement: Normal speech and movement present Affect: normal affect Attitude: cooperative Thought process: Normal thought process present and not confabulating Thought content: Normal thought content present Insight: Fair insight present (Psych) Judgement: Fair judgement present (Psych) Assessment & Plan Assessment & Plan (1) Primary biliary cholangitis: Code(s): K74.3 - Primary biliary cirrhosis Category: Medical Plan [place] #declines she will be going back to [facility] for Xmas. She continues to do well on the ursodiol. The initial transaminitis in her chart does not jive well with any of her subsequent labs and almost makes me wonder if this was entered on the wrong chart. ROV 6 mos. Orders: Orders Comprehensive Met. Panel Today K74.3 - Primary biliary cirrhosis Medications: Refilled ursodiol 300 mg PO TID 90 caps 6RF K74.3 - Primary biliary cirrhosis Coding Level of Care Code Est Pt Level 3 (49883) Diagnoses Primary biliary cholangitis K74.3
== END 2024-11-19 12:15 | disposition home or self-care (01) ==
PROVIDERS: PCP Internal Medicine; Visit Provider Nurse Practitioner
DX: K74.3 Primary biliary cirrhosis (principal)
CPT/HCPCS: 99213

== ENCOUNTER 2024-11-19 11:53 | Outpatient (REF) | payer OTHER, SELFPAY ==
[2024-11-19 14:09] LABS: Alanine Aminotransferase 26 U/L (0-31); Albumin Level 4.2 g/dL (3.5-5.0); Alkaline Phosphatase 91 U/L (39-117); Anion Gap 9 (12-20); Aspartate Amino Transferase 24 U/L (5-31); Bilirubin Total 0.4 mg/dL (0.0-1.0); Blood Urea Nitrogen 7 mg/dL (9-16); Calcium 8.9 mg/dL (8.4-10.2); Carbon Dioxide 26 mmol/L (22-29); Chloride 109 mmol/L (96-108); Estimated Glomerular Filt Rate > 60; Glucose Random 89 mg/dL (60-115); Potassium 3.8 mmol/L (3.3-5.1); Sodium 140 mmol/L (135-145); Total Protein 7.7 g/dL (6.5-8.0)
== END 2024-11-19 11:54 | disposition home or self-care (01) ==
LOC: HO.LAB 11:53
PROVIDERS: PCP Internal Medicine; Visit Provider Nurse Practitioner
DX: K74.3 Primary biliary cirrhosis (principal)
CPT/HCPCS: 36415; 80053

== ENCOUNTER 2025-05-20 11:35 | Outpatient (REF) | payer OTHER, SELFPAY ==
[2025-05-20 12:41] LABS: MANUAL DIFF FLAG NO
[2025-05-20 13:22] LABS: Basophils Percent Auto 0.4 % (0-2); Eosinophils Absolute Auto 0.1 X10*3/uL (0.0-0.4); Eosinophils Percent Auto 1.7 % (0-4); Hematocrit 37.3 % (37.0-47.0); Hemoglobin 12.7 g/dl (12.0-16.0); Imm Gran Abs Auto 0.02 X10*3/uL (0.00-0.03); Imm Gran Pct Auto 0.3 % (0.0-0.4); Lymphocytes Absolute Auto 2.8 X10*3/uL (1.2-4.9); Lymphocytes Percent Auto 40.5 % (20-40); Mean Corpuscular Hemoglobin 28.1 pg (27.0-33.0); Mean Corpuscular Volume 82.5 fL (80.0-98.0); Mean Platelet Volume 10.3 fL (9.4-12.3); Monocytes Absolute Auto 0.5 X10*3/uL (0.1-1.2); Monocytes Percent Auto 6.7 % (2-11); Neutrophils Absolute Auto 3.5 x10*3/uL (2.0-8.3); Neutrophils Percent Auto 50.4 % (45-73); Platelet Count 302 X10*3/uL (160-400); Red Blood Count 4.52 X10*6/uL (4.20-5.50); Red Cell Distribution Width 11.9 % (11.0-16.0)
[2025-05-20 13:59] LABS: Alanine Aminotransferase 27 U/L (0-31); Albumin Level 4.5 g/dL (3.5-5.0); Alkaline Phosphatase 83 U/L (39-117); Anion Gap 9 (12-20); Aspartate Amino Transferase 24 U/L (5-31); Bilirubin Total 0.4 mg/dL (0.0-1.0); Blood Urea Nitrogen 7 mg/dL (9-16); Calcium 8.9 mg/dL (8.4-10.2); Carbon Dioxide 25 mmol/L (22-29); Chloride 107 mmol/L (96-108); Estimated Glomerular Filt Rate > 60; Glucose Random 99 mg/dL (60-115); Potassium 3.8 mmol/L (3.3-5.1); Sodium 137 mmol/L (135-145); Total Protein 7.6 g/dL (6.5-8.0)
[2025-05-20 14:14] LABS: TSH reflex Free T4 0.87 uIU/mL (0.32-4.0)
[2025-05-20 14:54] LABS: Folate 13.9 ng/mL (> or = 4.0); Vitamin B12 320 pg/mL (200-900)
[2025-05-25 14:14] LABS: ANA Pattern 2 Nuclear, Speckled; Anti Nuclear Antibody Screen POSITIVE (NEGATIVE)
[2025-05-25 18:43] LABS: Vitamin D 25-OH, D2 8 ng/mL; Vitamin D 25-OH, D3 21 ng/mL; Vitamin D 25-OH, Total 29 ng/mL (30-100)
== END 2025-05-20 11:36 | disposition home or self-care (01) ==
LOC: HO.LAB 11:35
PROVIDERS: PCP Internal Medicine; Visit Provider Nurse Practitioner
DX: G47.00 Insomnia, unspecified (principal); R53.83 Other fatigue; K74.3 Primary biliary cirrhosis
CPT/HCPCS: 36415; 80053; 82306; 82607; 82746; 84443; 85025; 86038; 86039

== ENCOUNTER 2025-05-20 11:35 | Outpatient (AMB) | payer OTHER, SELFPAY ==
--- NOTE | 2025-05-20 11:39 | MHC.OFFVIS ---
Vital Signs 05/20/25 11:55 Height 4 ft 11 in Weight 144 lb BMI 29.1 BP 118/66 Blood Pressure Location Rt brachial Position Sitting Pulse 80 Pulse Source Pulse Oximeter Pulse Oximetry (%) 96 Oxygen Delivery Method Room Air Intake Visit Reasons: 6 mo Intake Note: Est pt for mgmt of PBC + GERD. CC; C.O. B/L lower abd pain however, worse in the LLQ than the RLQ. No additional sx or concerns. GERD is OK at this time. Metal Riveter Required: Yes Metal Riveter Services: Metal Riveter Present Metal Riveter Name: [id number] Accompanied by: Self / Same As Patient Allergies No Known Allergies (No Known Allergies*) Allergy (Verified 05/20/25 11:45) HPI HPI 6 mo: Details: Assessment & Plan (1) Primary biliary cholangitis: Code(s): K74.3 - Primary biliary cirrhosis Category: Medical Plan [place] #morales she will be going back to [facility] for Xmas. She continues to do well on the ursodiol. The initial transaminitis in her chart does not jive well with any of her subsequent labs and almost makes me wonder if this was entered on the wrong chart. ROV 6 mos. Orders: Orders Comprehensive Met. Panel Today K74.3 - Primary biliary cirrhosis Medications: Refilled ursodiol 300 mg PO TID 90 caps 6RF K74.3 - Primary biliary cirrhosis TODAYS VISIT [place] #morales She has been having lower back aches that are bad at night, she thinks it may be the creatine she is taking. THis is possible. She will try stopping it to see if this resolves. She is also having insomnia over the past year. She asks if her usodiol could be the cause. It is no a common reaction, but an atypical rxn is always possible. Before I make any medication changes we should get labs and see where her liver functions are, as liver disease can also cause fatigue. Will give a temp rx of hydroxyzine for prn sleep. ROV 4 weeks. [facility] Medical History Elevated antinuclear antibody (NELLIE) level Hypertriglyceridemia Polyarthralgia History of Helicobacter pylori infection Iron deficiency anemia Acid reflux Surgical History History of hysteroscopy History of laparoscopic cholecystectomy History of section Family History Father Medical history non-contributory Mother Thyroid disorder Maternal Grandmother Gallstone Maternal Aunt Gall stones Brother No problems noted. Brother No problems noted. Sister No problems noted. Sister No problems noted. Daughter No problems noted. Son No problems noted. Social History Household Members: Spouse Housing: House Alcohol intake: current Alcohol intake frequency: holidays/special occasions only Patient Tobacco Use Status: Never used Tobacco Tobacco use type: Cigarette e-Cigarette/Vaping Use: Never Used Second Hand Smoke Exposure: Yes service: No Current occupational status: unemployed Cognitive needs: No Hearing needs: No Vision needs: Yes Female Reproductive History Menstrual Age of Menarche: 12 Review of Systems Const Denies fatigue, Denies fever(s), Denies night sweats, Denies poor appetite and Denies weight loss ENT Reports Normal hearing present, Denies dental pain, Denies dysphagia, Denies hearing loss, Denies mouth pain, Denies odynophagia, Denies throat swelling, Denies tongue swelling and Reports other (Dentition adequate) Card Reports no additional complaints Resp Reports no additional complaints GI Details: Denies abdominal pain, Denies melena, Denies bloating, Denies hematochezia, Reports constipation, Denies GI cramping, Denies dysphagia, Denies excessive flatus, Denies early satiety, Denies heartburn, Denies diarrhea, Reports loose stools, Denies nausea, Denies odynophagia, Denies vomiting and Denies hematemesis Musc Reports back pain and Reports myalgias Skin/Breast Denies pruritus, Denies lesions, Denies rash and Denies jaundice Neuro Reports Normal hearing present and Denies Abnormal speech present Psych Reports abnormal sleep pattern Endo Denies fatigue Aller/Immun Denies throat swelling and Denies tongue swelling Physical Exam Const General: cooperative, no acute distress, well developed and well groomed Nutritional Appearance: average body habitus and well nourished Orientation/consciousness: oriented to person, oriented to place and oriented to time Limitations: No language barrier HEENT Head: Yes normocephalic and Yes atraumatic Eyes General: appearance normal, both eyes and all related structures Pupils: Equal, round and reactive pupils present Neck Neck: Yes normal visual inspection and Yes no lymphadenopathy Thyroid: Thyroid normal Resp Effort & Inspection: normal respiratory effort and able to speak in complete sentences Auscultation: clear to auscultation bilaterally Cardio Rate: regular rate Rhythm: regular rhythm Heart sounds: Normal, physiologic split S2 sound present Peripheral pulses: radial pulses present and posterior tibial pulses present GI Inspection: No distended and No Abdominal panniculus present Palpation (GI): Soft to palpation, nontender, no guarding, not rigid and No hepatosplenomegaly present Percussion: Yes normal to percussion Auscultation: normal bowel sounds Rectal Exam - Female: deferred Skin General skin exam: no rashes or lesions noted, turgor normal, skin not dry, no jaundice, No spider nevi and no striae Rashes: no rashes Nails: normal Neuro General: oriented to person, oriented to place and oriented to time Cranial nerves: Yes Equal, round and reactive pupils present and Yes Normal hearing present Speech: No Abnormal speech present Extrem General: Yes normal to inspection, No clubbing, No cyanosis and No edema Psych Appearance: grossly normal and well kempt Mental Status: mental status grossly normal Speech and movement: Normal speech and movement present Affect: normal affect Attitude: cooperative Thought process: Normal thought process present and not confabulating Thought content: Normal thought content present Insight: Fair insight present (Psych) Judgement: Fair judgement present (Psych) Assessment & Plan Assessment & Plan (1) Primary biliary cholangitis: Comment: Elevated NELLIE, AMA and per liver biopsy Code(s): K74.3 - Primary biliary cirrhosis Category: Medical (2) Fatigue: Code(s): R53.83 - Other fatigue Category: Medical (3) Insomnia: Code(s): G47.00 - Insomnia, unspecified Category: Medical Plan [place] #declines She has been having lower back aches that are bad at night, she thinks it may be the creatine she is taking. THis is possible. She will try stopping it to see if this resolves. She is also having insomnia over the past year. She asks if her usodiol could be the cause. It is no a common reaction, but an atypical rxn is always possible. Before I make any medication changes we should get labs and see where her liver functions are, as liver disease can also cause fatigue. Will give a temp rx of hydroxyzine for prn sleep. ROV 4 weeks Orders: Orders Complete Blood Count Auto Diff Today G47.00 - Insomnia, unspecified, R53.83 - Other fatigue TSH reflex Free T4 Today G47.00 - Insomnia, unspecified, R53.83 - Other fatigue Vitamin D 25-OH (D2 and D3) Today G47.00 - Insomnia, unspecified, R53.83 - Other fatigue Comprehensive Met. Panel Today K74.3 - Primary biliary cirrhosis NELLIE Reflex Titer and Pattern Today G47.00 - Insomnia, unspecified, R53.83 - Other fatigue Vitamin B12 and Folate Today G47.00 - Insomnia, unspecified, R53.83 - Other fatigue Medications: New hydroxyzine HCl 50 mg PO BEDTIME PRN 30 tabs 1RF insomnia G47.00 - Insomnia, unspecified Refilled ursodiol 300 mg PO TID 90 caps 6RF K74.3 - Primary biliary cirrhosis Coding Level of Care Code Est Pt Level 3 (28669) Diagnoses Primary biliary cholangitis K74.3 Fatigue R53.83 Insomnia G47.00
[2025-05-20 11:55] VITALS: BP 118/66; PULSE 80; O2SAT 96; BMI 29.1
== END 2025-05-20 13:27 | disposition home or self-care (01) ==
LOC: HO.HGI 11:35
PROVIDERS: PCP Internal Medicine; Visit Provider Nurse Practitioner
DX: K74.3 Primary biliary cirrhosis (principal); R53.83 Other fatigue; G47.00 Insomnia, unspecified
CPT/HCPCS: 99213

== ENCOUNTER 2025-05-28 08:20 | Outpatient (REF) | payer OTHER, SELFPAY ==
[2025-05-28 11:39] LABS: Cholesterol 191 mg/dL (<200); HDL Cholesterol 62 mg/dL (>40); LDL Cholesterol Calculated 96 mg/dL (<100); Triglycerides 169 mg/dL (<150)
[2025-05-28 11:40] LABS: Vitamin D 25-OH Total 35.1 ng/mL (>30)
== END 2025-05-28 08:21 | disposition home or self-care (01) ==
LOC: HO.HMGCLDS 08:20
PROVIDERS: PCP Internal Medicine; Visit Provider Internal Medicine
DX: E78.1 Pure hyperglyceridemia (principal); Z86.39 Personal history of other endocrine, nutritional and metabolic disease
CPT/HCPCS: 36415; 80061; 82306

== ENCOUNTER 2025-06-01 11:03 | Outpatient (AMB) | payer OTHER, SELFPAY ==
--- NOTE | 2025-06-01 11:27 | MHC.PC.OV ---
Vital Signs 06/01/25 11:47 Height 4 ft 11 in Weight 142 lb BMI 28.7 BP 90/60 Blood Pressure Location Rt brachial Position Sitting Respiration 16 Pulse 73 Pulse Source Pulse Oximeter Temp 98.0 F Temp Source Oral Pulse Oximetry (%) 97 Oxygen Delivery Method Room Air Intake Visit Reasons: Annual PE Intake Note: Pt is here today for her PE:Last 05/28/23, papsmear 05/16/23 Is last menstrual period known: Yes Last menstrual period: 06/01/25 Allergies No Known Allergies (No Known Allergies*) Allergy (Verified 06/01/25 12:03) Medication List - Last Reconciled 06/01/25 by Precious Garcia MD ursodiol 300 mg PO TID Tobacco use date assessed: 06/01/25 Dental Screening Dental Screen Date: 06/01/25 Did you have a dental visit in the last 12 months?: Yes Did you have a dental problem in the last 6 months where you did not have access to dental care?: No Was dental information given to patient?: Patient has dentist HPI Annual PE HPI Details 40-year-old lady with history of primary biliary cholangitis and hypertriglyceridemia, here today for her physical exam. She is overdue for her screening mammogram, last done in 2022, and is up-to-date with her cervical cancer screening also done in 2022. She has been feeling well, with no complaints at present time [facility] Medical History Elevated antinuclear antibody (NELLIE) level Hypertriglyceridemia Polyarthralgia History of Helicobacter pylori infection Iron deficiency anemia Acid reflux Surgical History History of hysteroscopy History of laparoscopic cholecystectomy History of section Family History Father Medical history non-contributory Mother Thyroid disorder Maternal Grandmother Gallstone Maternal Aunt Gall stones Brother No problems noted. Brother No problems noted. Sister No problems noted. Sister No problems noted. Daughter No problems noted. Son No problems noted. Social History Household Members: Spouse Housing: House Alcohol intake: current Alcohol intake frequency: holidays/special occasions only Patient Tobacco Use Status: Never used Tobacco Tobacco use type: Cigarette e-Cigarette/Vaping Use: Never Used Second Hand Smoke Exposure: Yes service: No Current occupational status: unemployed Cognitive needs: No Hearing needs: No Vision needs: Yes Female Reproductive History Menstrual Age of Menarche: 12 Date of last menstrual period: 06/01/25 Questionnaire PHQ-9 Over the last 2 weeks, how often have you been bothered by any of the following problems? 1. Little interest or pleasure in doing things: not at all 2. Feeling down, depressed, or hopeless: not at all 3. Trouble falling or staying asleep, or sleeping too much: several days 4. Feeling tired or having little energy: not at all 5. Poor appetite or overeating: not at all 6. Feeling bad about yourself - or that you are a failure or have let yourself or your family down: not at all 7. Trouble concentrating on things, such as reading the newspaper or watching television: not at all 8. Moving or speaking so slowly that other people could have noticed. Or the opposite - being so fidgety or restless that you have been moving around a lot more than usual: not at all 9. Thoughts that you would be better off or of hurting yourself in some way: not at all Total score: 1 Depression Screening Interpretation: Negative Depression Screening Done: Yes 34860 - PHQ-9 Billing: Yes Source: Developed by Drs. John Camarena, Larisa Humphries, Giuseppe Almazan and colleagues, with an educational sunshine from [employer]. Thrive Questionnaire Date Thrive assessed: 05/11/24 I am a: Patient What is your living situation today?: I have a steady place to live Within the past 12 months, did the food you bought not last and you didn't have the money to get more?: Never true Within the past 12 months, did you worry whether your food would run out before you got money to buy more?: Never true Do you have trouble paying for medicines?: No Do you have trouble getting transportation to medical appointments?: No Do you have trouble paying your heating and electricity bill?: No Do you have trouble taking care of your child, family member or friend?: No Do you have trouble with day-to-day activities such as bathing, preparing meals, shopping, managing finances, etc.?: No Are you currently unemployed and looking for a job?: No Are you interested in more education?: No Please select the resources that you would like help with: None Currently or been in a relationship where the following occur: No concerns reported THRIVE Score: 0 AUDIT C Alcohol Use Questionnaire (AUDIT-C) 1. How often do you have a drink containing alcohol?: Never Total Score: 0 DANDY-7 AMB Questionnaire DANDY-7 Date DANDY - 7 assessed: 06/01/25 Feeling nervous, anxious, or on edge: 0 = Not at all Not being able to stop or control worryin = Not at all Worrying too much about different things: 0 = Not at all Trouble relaxin = Not at all Being so restless that it is hard to sit still: 0 = Not at all Becoming easily annoyed or irritable: 0 = Not at all Feeling afraid as if something awful might happen: 0 = Not at all Total DANDY-7 score (0-4 normal; 5-9 mild; 10-14 moderate; 15-21 severe): 0 Source: Developed by Drs. John Camarena, Larisa Humphries, Giuseppe Almazan and colleagues, with an educational sunshine from [employer]. DANDY-7 Assessment Billing DANDY-7 Assessment Tool: DANDY-7 Assessment 16590 Review of Systems Const Denies fatigue, Denies fever(s), Denies night sweats, Denies poor appetite and Denies weight loss [facility] ENT Reports Normal hearing present, Denies dental pain, Denies dysphagia, Denies hearing loss, Denies mouth pain, Denies odynophagia, Denies throat swelling, Denies tongue swelling and Reports other (Dentition adequate) Card Reports no additional complaints Resp Reports no additional complaints GI Details: Denies abdominal pain, Denies melena, Denies bloating, Denies hematochezia, Reports constipation, Denies GI cramping, Denies dysphagia, Denies excessive flatus, Denies early satiety, Denies heartburn, Denies diarrhea, Reports loose stools, Denies nausea, Denies odynophagia, Denies vomiting and Denies hematemesis Reports no additional complaints Musc Reports back pain and Reports myalgias Skin/Breast Denies pruritus, Denies lesions, Denies rash and Denies jaundice Neuro Reports Normal hearing present and Denies Abnormal speech present Psych Reports abnormal sleep pattern Endo Denies fatigue Milton/Lymph Reports no additional complaints Aller/Immun Denies throat swelling and Denies tongue swelling Physical exam (Primary Care) Vital Signs: Last Vital Signs Temp 98.0 F 06/01/25 11:47 Pulse 73 06/01/25 11:47 Resp 16 06/01/25 11:47 BP 90/60 06/01/25 11:47 Pulse Ox 97 06/01/25 11:47 Oxygen Delivery Method Room Air 06/01/25 11:47 BMI result Body Mass Index 28.7 Tobacco/Smoking Status: Tobacco use Status Tobacco use date assessed 06/01/25 06/01/25 11:53 Patient Tobacco Use Status Never used Tobacco 06/01/25 11:29 Tobacco use type Cigarette 06/01/25 11:29 e-Cigarette/Vaping Use Never Used 06/01/25 11:29 PHQ-9: PHQ-9 Score PHQ-9: Total score 1 06/06/25 03:31 Depression Screening Interpretation: Negative Thrive Assessment: Date of Thrive Assessment Date Thrive assessed 05/11/24 06/01/25 11:29 Currently or been in a relationship where the following occur: No concerns reported Const General: comfortable, no acute distress and alert Nutritional Appearance: overweight Orientation/consciousness: patient oriented x3 HENMT Ears: external ears normal, TM's normal bilaterally and EAC's normal General nose exam: Normal external nose present Face and sinus: Yes face symmetric Mouth: Normal oral and palatal mucosa present, oropharynx normal and moist mucous membranes Eyes General: appearance normal, both eyes and all related structures Neck Neck: Yes normal visual inspection, Yes full ROM, Yes no lymphadenopathy and Yes supple Thyroid: Thyroid normal Chest Breast/axilla palpation: normal palpation of the breasts Resp Auscultation: clear to auscultation bilaterally Cardio Rate: regular rate Rhythm: regular rhythm Heart sounds: S1 normal heart sound present and S2 normal heart sound present GI Inspection: Yes normal to inspection Palpation (GI): Soft to palpation and no guarding Auscultation: normal bowel sounds General: Yes deferred (ff'd by BS OB-DATABASE ANALYST) Back/Spine/Pelvis Back: No back tenderness Skin General skin exam: no rashes or lesions noted Neuro General: patient oriented x3, gait normal, moves all extremities, Normal light touch and pain sensation, no focal motor deficits and CN's II-XI intact bilaterally Cranial nerves: Yes Normal hearing present Speech: No Abnormal speech present Extrem Other: T General: Yes full ROM, Yes no joint enlargement, Yes no clubbing, cyanosis or edema and Yes normal gait Psych Appearance: grossly normal and well kempt Mental Status: mental status grossly normal Speech and movement: Normal speech and movement present Affect: normal affect Thought process: Normal thought process present Immunizations Boostrix Tdap 2.5 Lf unit-8 mcg-5 Lf/0.5 mL intramuscular syringe Performing Provider: Precious Garcia MD Performing Location: [facility] Administered by: Luz Mckeon CMA on 06/01/25 12:32 Dose Route Admin Location Dispensed Lot Number Expiration Date [facility] Loose Hand Packer 0.5 mL IM Right Deltoid 0.5 mL [id number] 07/30/27 52237-384-03 [employer] Total Dispensed Waste 0.5 mL 0 % VIS Given Date VIS Provided VIS Publication Date 06/01/25 Single Vaccine 21 Eligibility Eligibility Date Funding Source Not [facility] Eligible 06/01/25 Private Results Reviewed Results Reviewed: Name: Linsey Martin Age/Sex: 40/F : 1985 Unit#: [id number] Attend Dr: Mickey ANP-C Re05/20/25 Status: [facility]P [facility] SPEC : [id number] GORDO: 05/20/25 STATUS: COMP REQ : [id number] RECD: 05/20/[address]: Mickey ANP-C COMP: 05/20/25 ENTERED: 05/20/[address]: Precious Garcia MD ORDERED: CBC Auto Diff Test Result Flag Reference WBC 7.0 4.8-10.8 X10*3/uL RBC 4.52 4.20-5.50 X10*6/uL HGB 12.7 12.0-16.0 g/dl HCT 37.3 37.0-47.0 % MCV 82.5 80.0-98.0 fL MCH 28.1 27.0-33.0 pg MCHC 34.0 31.0-35.0 g/dl RDW 11.9 11.0-16.0 % PLT 302 160-400 X10*3/uL MPV 10.3 9.4-12.3 fL Neut Pct Auto 50.4 45-73 % ImGran Pct Auto 0.3 0.0-0.4 % Lymp Pct Auto 40.5 H 20-40 % [place] Pct Auto 6.7 2-11 % Eos Pct Auto 1.7 0-4 % Baso Pct Auto 0.4 0-2 % NRBC Pct Auto 0.0 0.0-0.2 /100WBC ANC Neut Abs # 3.5 2.0-8.3 x10*3/uL ImGran Abs Auto 0.02 0.00-0.03 X10*3/uL Lymph Abs Auto 2.8 1.2-4.9 X10*3/uL [place] Abs Auto 0.5 0.1-1.2 X10*3/uL Eos Abs Auto 0.1 0.0-0.4 X10*3/uL Baso Abs Auto 0.0 0.0-0.2 X10*3/uL NRBC Abs Auto 0.000 0.0-0.012 X10*3/uL Name: Linsey Martin Age/Sex: 40/F : 1985 Unit#: [id number] Attend Dr: Precious Garcia MD Re05/28/25 Status: DEP REF Location: [facility] Disch: SPEC : [id number] GORDO: 05/28/25 STATUS: COMP REQ : [id number] RECD: 05/28/[address]: Precious Garcia MD COMP: 05/28/25 ENTERED: 05/28/[address]: ORDERED: Lipid Panel, Vitamin D 25-OH Test Result Flag Reference Triglyceride 169 H <150 mg/dL Desirable Triglyceride: less than 150 mg/dL Borderline High Triglyceride 150-199 mg/dL High Triglyceride: 200-499 mg/dL Very High Triglyceride: greater than or equal to 5OO mg/dL Cholesterol 191 <200 mg/dL Desirable Cholesterol: less than 200 mg/dL Borderline High Cholesterol: 200-239 mg/dL High Cholesterol: greater than 239 mg/dL LDL Calculated 96 <100 mg/dL Desirable LDL: less than 100 mg/dL Near Optimal/Above Optimal LDL: 110-129 mg/dL Borderline High LDL: 130-159 mg/dL High LDL: 160-189 mg/dL Very High LDL: greater than or equal to 190 mg/dL HDL 62 >40 mg/dL Desirable HDL: greater than 40 mg/dL Note: This HDL assay may give artificially low results in patients with liver disease. Vitamin D 25-OH 35.1 >30 ng/mL Health Based Reference Values* < 20 ng/mL Deficient 20-30 ng/mL Insufficient > 30 ng/mL Sufficient Name: Linsey Martin Age/Sex: 40/F : 1985 Unit#: [id number] Attend Dr: Mickey ANP-C Re05/20/25 Status: [facility]P [facility] SPEC : [id number] GORDO: 05/20/25-1238 STATUS: COMP REQ : [id number] RECD: 05/20/25-[address]: Mickey ANP-C COMP: 05/20/25-1414 ENTERED: 05/20/25-[address]: Precious Garcia MD ORDERED: CMP, TSH Rflx Test Result Flag Reference Sodium 137 135-145 mmol/L Potassium 3.8 3.3-5.1 mmol/L CL 107 96-108 mmol/L CO2 25 22-29 mmol/L Gap 9 L 12-20 BUN 7 L 9-16 mg/dL Creat 0.53 0.5-1.4 mg/dL eGFR > 60 Chronic Kidney Disease: Estimated GFR < 60 mL/min/1.73m2 Severe Kidney Disease: Estimated GFR < 15 mL/min/1.73m2 Glucose, Random 99 60-115 mg/dL CA 8.9 8.4-10.2 mg/dL Total Bili 0.4 0.0-1.0 mg/dL AST (GOT) 24 5-31 U/L ALT (GPT) 27 0-31 U/L Protein, Total 7.6 6.5-8.0 g/dL Alb 4.5 3.5-5.0 g/dL Alk Phos 83 39-117 U/L TSH 0.87 0.32-4.0 uIU/mL Coding Level of Care Code Est Pt Prev Care 40-64y(64891) Diagnoses Annual visit for general adult medical examination with abnormal findings Z00. Hypertriglyceridemia E78.1 Primary biliary cholangitis K74.3 Additional Codes PHQ-9 - 97618 - PHQ-9 Billing: Yes ([id number]) DANDY-7 Assessment Billing - DANDY-7 Assessment Tool: DANDY-7 Assessment 56837 ([id number]) Assessment & Plan Assessment & Plan (1) Annual visit for general adult medical examination with abnormal findings: Code(s): Z00.01 - Encounter for general adult medical examination with abnormal findings Plan: Recent fasting lab results reviewed with patient Recommended dental visit every 6 months and regular eye exams, at least every 2 years. Take adequate calcium in diet and vitamin-D 3 at 2000 IU per cap once a day, in addition to weight-bearing exercises to help maintain good muscle tone and weight control. Instructed to do self-breast exam, and recommended to get yearly mammogram, up-to-date with her cervical cancer screening.. Immunization up-to-date except for Tdap which was given today (2) Hypertriglyceridemia: Code(s): E78.1 - Pure hyperglyceridemia Category: Medical Plan: Reinforced importance of following a low-cholesterol diet, avoidance of junk food and processed foods, regular exercise strongly recommended. (3) Primary biliary cholangitis: Comment: Elevated NELLIE, AMA and per liver biopsy Code(s): K74.3 - Primary biliary cirrhosis Category: Medical Plan: Controlled on ursodiol 300 mg taken 1 tablet 3 times a day. Orders: Orders TDaP Immunization 06/01/25 Z23 - Encounter for immunization
[2025-06-01 11:47] VITALS: BP 90/60; PULSE 73; RESP 16; TEMP 36.7; O2SAT 97; BMI 28.7
== END 2025-06-01 12:26 | disposition home or self-care (01) ==
LOC: HO.HMCC 11:04
PROVIDERS: PCP Internal Medicine; Visit Provider Internal Medicine
DX: Z23 Encounter for immunization (principal)

== ENCOUNTER → 2025-06-01 11:03 | Outpatient (BNVA) | payer OTHER, SELFPAY | PROVIDERS: PCP Internal Medicine; Visit Provider Internal Medicine | DX: Z00.01 Encounter for general adult medical examination with abnormal findings (principal); E78.1 Pure hyperglyceridemia; K74.3 Primary biliary cirrhosis; Z23 Encounter for immunization | CPT/HCPCS: 90471; 90715; 96127 ==

== ENCOUNTER 2025-06-22 09:48 | Outpatient (AMB) | payer OTHER, SELFPAY ==
--- NOTE | 2025-06-22 09:50 | A.OFFVIS_ITS ---
Vital Signs 06/22/25 09:53 Height 4 ft 11 in Weight 144 lb BMI 29.1 BP 112/55 L Blood Pressure Location Rt brachial Position Sitting Pulse 82 Intake Visit Reasons: ABD DISCOMFORT Intake Note: Linsey returns in follow up of labs. CC: Patient reports feeling well and denies having any new GI symptoms or concerns. Permit Technician Required: Yes Permit Technician Language: Azerbaijani Accompanied by: Self / Same As Patient Allergies No Known Allergies (No Known Allergies*) Allergy (Verified 06/22/25 09:56) HPI HPI ABD DISCOMFORT: Details: Assessment & Plan (1) Primary biliary cholangitis: Comment: Elevated NELLIE, AMA and per liver biopsy Code(s): K74.3 - Primary biliary cirrhosis Category: Medical (2) Fatigue: Code(s): R53.83 - Other fatigue Category: Medical (3) Insomnia: Code(s): G47.00 - Insomnia, unspecified Category: Medical Plan Azerbaijani #declines She has been having lower back aches that are bad at night, she thinks it may be the creatine she is taking. THis is possible. She will try stopping it to see if this resolves. She is also having insomnia over the past year. She asks if her usodiol could be the cause. It is no a common reaction, but an atypical rxn is always possible. Before I make any medication changes we should get labs and see where her liver functions are, as liver disease can also cause fatigue. Will give a temp rx of hydroxyzine for prn sleep. ROV 4 weeks Orders: Orders Complete Blood Count Auto Diff Today G47.00 - Insomnia, unspecified, R53.83 - Other fatigue TSH reflex Free T4 Today G47.00 - Insomnia, unspecified, R53.83 - Other fatigue Vitamin D 25-OH (D2 and D3) Today G47.00 - Insomnia, unspecified, R53.83 - Oth er fatigue Comprehensive Met. Panel Today K74.3 - Primary biliary cirrhosis NELLIE Reflex Titer and Pattern Today G47.00 - Insomnia, unspecified, R53.83 - Other fatigue Vitamin B12 and Folate Today G47.00 - Insomnia, unspecified, R53.83 - Other fatigue Medications: New hydroxyzine HCl 50 mg PO BEDTIME PRN 30 tabs 1RF insomnia G47.00 - Insomnia, unspecified Refilled ursodiol 300 mg PO TID 90 caps 6RF K74.3 - Primary biliary cirrhosis LABS Laboratory Tests 05/20/25 05/28/25 12:39 08:34 WBC 7.0 Hgb 12.7 Hct 37.3 Plt Count 302 Total Bilirubin 0.4 AST 24 ALT 27 Alkaline Phosphatase 83 25-OH Vitamin D Total 35.1 Folate 13.9 TSH 0.87 NELLIE Screen POSITIVE A NELLIE Titer 1:1280 H NELLIE Titer 2 1:80 H NELLIE Pattern A NELLIE Pattern 2 Nuclear, Speckled A TODAYS VISIT Azerbaijani #DECLINES She is sleeping better because she was exercising every day and now she is only doing 3 x a week. She is feeling well now! With this we know that the ursodiol was not causing her insomnia and it is controlling her PVC well so we will continue this. Return office visit in 6 months [facility] Medical History Elevated antinuclear antibody (NELLIE) level Hypertriglyceridemia Polyarthralgia History of Helicobacter pylori infection Iron deficiency anemia Acid reflux Surgical History History of hysteroscopy History of laparoscopic cholecystectomy History of section Family History Father Medical history non-contributory Mother Thyroid disorder Maternal Grandmother Gallstone Maternal Aunt Gall stones Brother No problems noted. Brother No problems noted. Sister No problems noted. Sister No problems noted. Daughter No problems noted. Son No problems noted. Social History Household Members: Spouse Housing: House Alcohol intake: current Alcohol intake frequency: holidays/special occasions only Patient Tobacco Use Status: Never used Tobacco Tobacco use type: Cigarette e-Cigarette/Vaping Use: Never Used Second Hand Smoke Exposure: Yes service: No Current occupational status: unemployed Cognitive needs: No Hearing needs: No Vision needs: Yes Female Reproductive History Menstrual Age of Menarche: 12 Review of Systems Const Denies fatigue, Denies fever(s), Denies night sweats, Denies poor appetite and Denies weight loss ENT Reports Normal hearing present, Denies dental pain, Denies dysphagia, Denies hearing loss, Denies mouth pain, Denies odynophagia, Denies throat swelling, Denies tongue swelling and Reports other (Dentition adequate) Card Reports no additional complaints Resp Reports no additional complaints GI Details: Denies abdominal pain, Denies melena, Denies bloating, Denies hematochezia, Denies constipation, Denies GI cramping, Denies dysphagia, Denies excessive flatus, Denies early satiety, Reports heartburn, Denies diarrhea, Denies nausea, Denies odynophagia, Denies vomiting and Denies hematemesis Skin/Breast Denies pruritus, Denies lesions, Denies rash and Denies jaundice Neuro Reports Normal hearing present and Denies Abnormal speech present Endo Denies fatigue Aller/Immun Denies throat swelling and Denies tongue swelling Physical Exam Vital Signs: Last Vital Signs Pulse 82 06/22/25 09:53 BP 112/55 L 06/22/25 09:53 BMI result Body Mass Index 29.1 Const General: cooperative, no acute distress, well developed and well groomed Nutritional Appearance: average body habitus, well nourished and obese Orientation/consciousness: oriented to person, oriented to place and oriented to time Limitations: No language barrier HEENT Head: Yes normocephalic and Yes atraumatic Eyes General: appearance normal, both eyes and all related structures Pupils: Equal, round and reactive pupils present Neck Neck: Yes normal visual inspection and Yes no lymphadenopathy Thyroid: Thyroid normal Resp Effort & Inspection: normal respiratory effort and able to speak in complete sentences Auscultation: clear to auscultation bilaterally Cardio Rate: regular rate Rhythm: regular rhythm Heart sounds: Normal, physiologic split S2 sound present Peripheral pulses: radial pulses present and posterior tibial pulses present GI Inspection: No distended and No Abdominal panniculus present Palpation (GI): Soft to palpation, nontender, no guarding, not rigid and No hepatosplenomegaly present Percussion: Yes normal to percussion Auscultation: normal bowel sounds Rectal Exam - Female: deferred Skin General skin exam: no rashes or lesions noted, turgor normal, skin not dry, no jaundice, No spider nevi and no striae Rashes: no rashes Nails: normal Neuro General: oriented to person, oriented to place and oriented to time Cranial nerves: Yes Equal, round and reactive pupils present and Yes Normal hearing present Speech: No Abnormal speech present Extrem General: Yes normal to inspection, No clubbing, No cyanosis and No edema Psych Appearance: grossly normal and well kempt Mental Status: mental status grossly normal Speech and movement: Normal speech and movement present Affect: normal affect Attitude: cooperative Thought process: Normal thought process present and not confabulating Thought content: Normal thought content present Insight: Good insight present (Psych) Judgement: Good judgement present (Psych) Assessment & Plan Assessment & Plan (1) Primary biliary cholangitis: Comment: Elevated NELLIE, AMA and per liver biopsy Code(s): K74.3 - Primary biliary cirrhosis Category: Medical Plan [place]ijani #DECLINES She is sleeping better because she was exercising every day and now she is only doing 3 x a week. She is feeling well now! With this we know that the ursodiol was not causing her insomnia and it is controlling her PVC well so we will cont inue this. Return office visit in 6 months Medications: Refilled ursodiol 300 mg PO TID 90 caps 6RF K74.3 - Primary biliary cirrhosis Coding Level of Care Code Est Pt Level 3 (48715) Diagnoses Primary biliary cholangitis K74.3
[2025-06-22 09:53] VITALS: BP 112/55; PULSE 82; BMI 29.1
== END 2025-06-22 10:35 | disposition home or self-care (01) ==
LOC: HO.HGI 09:48
PROVIDERS: PCP Internal Medicine; Visit Provider Nurse Practitioner
DX: K74.3 Primary biliary cirrhosis (principal)
CPT/HCPCS: 99213

== ENCOUNTER 2025-07-19 09:14 | Outpatient (AMB) | payer OTHER, SELFPAY ==
[2025-07-19 09:27] VITALS: BP 102/60; PULSE 80; TEMP 36.8; O2SAT 97; BMI 29.3
--- NOTE | 2025-07-19 09:27 | AM.OFFWIN_ITS ---
Intake Vital Signs 07/19/25 09:27 Height 4 ft 11 in Weight 145 lb BMI 29.3 BP 102/60 Blood Pressure Location Lt brachial Position Sitting Pulse 80 Pulse Source Pulse Oximeter Temp 98.3 F Temp Source Oral Pulse Oximetry (%) 97 Oxygen Delivery Method Room Air Intake Visit Reasons: EP back pain,constipation? Intake Note: presents with mid back pain and constipation for 2 weeks Patient Tobacco Use Status: Never used Tobacco Allergies No Known Allergies (No Known Allergies*) Allergy (Verified 07/19/25 09:31) Medication List - Last Reconciled 07/19/25 by Aarti Lawson PA-C ursodiol 300 mg PO TID Do you need a note to return to daycare/school/sports/work: No HPI HPI Comments History of Present Illness Details [employer] Video court interpreter used for this visit. History of Present Illness - The patient is a 40-year-old female pr esenting with headache and musculoskeletal back pain. - Reports headaches and ocular pruritus, with back pain localized to the sides, not the center. - History of constipation, with last nor mal bowel movement today, but noted constipation over the past three days. - No current medication for constipation . - Experiences morning cold-like symptoms , not persistent throughout the day. Itchy eyes and headaches - Inquiry about constipation and headach e relationship. Physical Exam General: Cooperative, healthy appearing, comfortable, no acute distress and well developed Orientation: Patient oriented x3 Limitations: No limitations Head: Normal to inspection Ears: Hearing grossly normal bilaterally Nose: Normal External nose present Face and sinus: Normal facial exam Eyes: Normal appearance Neck: Normal visual inspection and Yes full ROM Respiratory: Normal respiratory effort and able to speak in complete sentences. Skin: No rashes or lesions noted Neuro: Patient oriented x3 Extremities: Normal to inspection Back/spine: no TTP cervical, thoracic or lumbar spine, tenderness to the paraspinal muscles of the bilateral cervical, thoracic and low back. Full range of motion of the back [facility] Medical History Elevated antinuclear antibody (NELLIE) level Hypertriglyceridemia Polyarthralgia History of Helicobacter pylori infection Iron deficiency anemia Acid reflux Surgical History History of hysteroscopy History of laparoscopic cholecystectomy History of section Family History Father Medical history non-contributory Mother Thyroid disorder Maternal Grandmother Gallstone Maternal Aunt Gall stones Brother No problems noted. Brother No problems noted. Sister No problems noted. Sister No problems noted. Daughter No problems noted. Son No problems noted. Social History Household Members: Spouse Housing: House Alcohol intake: current Alcohol intake frequency: holidays/special occasions only Patient Tobacco Use Status: Never used Tobacco Tobacco use type: Cigarette e-Cigarette/Vaping Use: Never Used Second Hand Smoke Exposure: Yes service: No Current occupational status: unemployed Cognitive needs: No Hearing needs: No Vision needs: Yes Female Reproductive History Menstrual Age of Menarche: 12 Review of Systems Const All systems reviewed & are unremarkable except as noted in HPI and below Physical Exam Vital Signs: Last Vital Signs Temp 98.3 F 07/19/25 09:27 Pulse 80 07/19/25 09:27 BP 102/60 07/19/25 09:27 Pulse Ox 97 07/19/25 09:27 Oxygen Delivery Method Room Air 07/19/25 09:27 BMI result Body Mass Index 29.3 Assessment & Plan Assessment & Plan (1) Constipation: Code(s): K59.00 - Constipation, unspecified Qualifiers: Constipation type: unspecified constipation type Qualified Code(s): K59.00 - Constipation, unspecified Plan: Plan - Recommend Dulcolax for constipation management, with Colace as an alternative for stool softening. - Advise increased fluid intake and daily Metamucil to maintain bowel regularity. - Suggest ibuprofen for musculoskeletal back pain relief, noting its potential gastrointestinal effects. - Recommend [id number] Zyzal for seasonal allergic rhinitis management. Patient was informed and verbally consented to the use of an ambient scribe for clinic note documentation during this visit. (2) Seasonal allergies: Code(s): J30.2 - Other seasonal allergic rhinitis Plan: as above Coding Level of Care Code Est Pt Level 4 (84775) Diagnoses Constipation, unspecified constipation type K59.00 Constipation type: unspecified constipation type Seasonal allergies J30.2
== END 2025-07-19 10:12 | disposition home or self-care (01) ==
PROVIDERS: PCP Internal Medicine; Visit Provider Physician Assistant
DX: K59.00 Constipation, unspecified (principal); J30.2 Other seasonal allergic rhinitis